=== PATIENT | male | born 1955 | race Caucasian/White ===

== ENCOUNTER 2016-12-07 13:01 | Inpatient (IN) ==
--- NOTE | 2016-12-07 13:23 | Emergency Department Note ---
Arrival - Arrival Chief Complaint: Upper Respiratory ED Nursing Triage Note: Brought in by EMS c/o coughing up blood-onset earlier this morning. Reports that he just finished a round of chemo. Was instructed by cancer clinic to come to ED since he was coughing large clots. Mode of Arrival: Stretcher Limitations: No Limitations Source: Patient, Old Records Reviewed, RN Notes Reviewed Time Seen by Provider: 12/07/16 13:15 - History of Present Illness HPI Narrative: Patient is a 61-year-old white male with a history of small cell carcinoma the lung. Patient began coughing up blood today. He has had hemoptysis in the past. Patient is coughed up a teaspoonful at a time on multiple occasions this morning. There is no history of chills or fever. Patient denies shortness of breath. He is currently being treated by Dr. Garnett. He completed his last chemotherapy yesterday. Onset (ago): hour(s) (5-6) Allergies/Adverse Reactions: Allergies Allergy/AdvReac Type Severity Reaction Status Date / Time influenza virus vaccine, Allergy Severe ANAPHYLAXIS Verified 11/09/16 06:57 specific Home Medications: Home Medications Medication Instructions Recorded Confirmed Type Albuterol Sulfate [Proair HFA] 2 puff INH Q4H PRN 11/08/16 11/08/16 History Aspirin EC Tab 81 mg PO DAILY 11/08/16 11/09/16 History Atorvastatin [Lipitor] 20 mg PO DAILY 11/08/16 11/08/16 History Benazepril [Lotensin] 40 mg PO DAILY 11/08/16 11/09/16 History Cyclobenzaprine [Flexeril] 10 mg PO TID PRN 11/08/16 11/08/16 History Fluticasone Propionate 2 spray BOTH NARES DAILY 11/08/16 11/08/16 History [Fluticasone 50 mcg Nasal [place]] [place] 3 Acid Ethyl Esters [Lovaza] 2 gm PO BID 11/08/16 11/08/16 History Potassium Gluconate 90 mg PO BID 11/08/16 11/08/16 History Tramadol HCl [Tramadol Tab] 50 mg PO Q6H PRN 11/08/16 11/08/16 History amLODIPine [Norvasc] 10 mg PO DAILY 11/08/16 11/09/16 History hydroCHLOROthiazide 25 mg PO DAILY 11/08/16 11/08/16 History [Hydrochlorothiazide] Diltiazem Cd Cap [Cardizem CD] 120 mg PO DAILY 11/09/16 11/09/16 History Review of System - Review of System 12 point system: reviewed and no additional remarkable complaints except as stated - Review of System Constitutional: Absent: chills, fever Respiratory: Present: cough, other (Hemoptysis). Absent: respiratory distress, wheezing Cardiovascular: Absent: chest pain, palpitations, dyspnea on exertion, orthopnea , edema Gastrointestinal: Absent: abdominal pain, nausea, vomiting Medical,Surgical,& Family Hx - Medical History Cardio: History of: Cardiac Dysrhythmia, Hypertension Neurology: History of: TIA No history of: Seizures HEENT: Comment Only: Dental Problems (SOME TEETH BROKE OFF) Endocrine: No history of: Thyroid Disorder Comment Only: Diabetes Mellitus (NIDDM) (BORDERLINE) Respiratory: History of: Bronchitis, Pneumonia, Lung Cancer Gastrointestinal: History of: GERD, GI Problems (STOMACH ULCERS) No history of: Hepatitis, Liver Problems Musculoskeletal: History of: Musculoskeletal Problems (BOTH ANKLES BROKEN, WITH PINS/FIXATOR) Other: No history of: Anesthesia Reactions (HARD TO BUT TO SLEEP/ HIGH TOLERANCE FOR PAIN) - Surgical History Cardiac Surgeries: Patient Denies: Cardiac Catheterization Reproductive Surgeries: Comment Only: Prostate Surgery (SLOW MOVING CA OVER 20 YRS IN PROSTATE ACCORDING TO , DOES NOT SEE MD) - Social History Smoking Status: Former smoker Frequency of Alcohol Use: None Type of Drug Use: None Functional capacity: independent ambulation Exam Vital Signs: Vital Signs Temperature 98.9 F 12/07/16 13:07 Pulse Rate 106 H 12/07/16 14:30 Respiratory Rate 20 12/07/16 14:30 Blood Pressure 115/71 12/07/16 14:30 O2 Sat by Pulse Oximetry 97 12/07/16 14:30 GENERAL: This is a well-nourished well-developed chronically ill-appearing white male in no apparent distress. VITAL SIGNS: Reviewed HEENT: Head is atraumatic and normocephalic. Pupils are equal round react to light. Extraocular movements are intact. Oropharynx is benign with moist mucous membranes. NECK: Neck is soft and supple without tenderness. There are no masses. There is no lymphadenopathy. LUNGS: Decreased breath sounds in all lung mullins. Chest rises symmetrically. There is no chest wall tenderness. CV: Heart is regular rate and rhythm without murmurs rubs or gallops. ABDOMEN: Abdomen is soft, nontender to palpation. There are no abdominal abnormal masses palpated. There is no organomegaly. Bowel sounds are present and active. SKIN: Skin is warm and dry. No rash. EXTREMITIES: Patient has full range of motion without tenderness. There is no pedal edema. NEUROLOGIC: Awake alert and oriented 4. Cranial nerves II through XII are grossly intact. Motor is 5 over 5 in all extremities bilaterally. Course - Consultations Consultation #1: Discussed with Dr. Garnett. Patient will be admitted to his service. Initial orders written for him. The patient's care will be assumed by him upon arrival to the floor peer Time: 15:18 Results - Labs CBC & BMP: 12/07/16 13:21 12/07/16 13:21 Lab Results: I have reviewed the patients labs Labs: Laboratory Tests 12/07/16 13:21 INR 1.0 - Diagnostic Findings Procedure: Chest x-ray: image reviewed by me (Increased pulmonary markings on the left.) Disposition Clinical Impression: Small cell carcinoma of lung, Hemoptysis, Postobstructive pneumonia, Anemia Case discussed with: patient, patient's physician Disposition: Still a Patient Condition: Stable Time of Disposition: 15:18
[2016-12-07 13:31] LABS: Basophils % 0.1 % (0.0-0.8); Eosinophils % 0.3 % (0.00-10.9); Hemoglobin 8.5 GM/DL (14.0-18.0); Immature Granulocytes % 3.1 %; Immature Granulocytes Absolute 0.42 #; Lymphocytes # 0.6 10*3/uL (1.4-4.0); Lymphocytes % 4.5 % (21.2-54.2); Mean Corpuscular HGB Conc 32.7 GM/DL (32-36); Mean Corpuscular Hemoglobin 29 PG (27-34); Mean Corpuscular Volume 87.5 FL (87-102); Mean Platelet Volume 8.9 FL (9.6-12.0); Monocytes # 0.2 10*3/uL (0.11-0.8); Monocytes % 1.7 % (1.7-12.7); Neutrophils # 12.2 10*3/uL (1.4-7.4); Neutrophils % 90.3 % (38.7-73.9); Platelet Count 522 T/CUMM (130-400); Red Blood Count 2.97 MC/CUMM (3.8-5.5); White Blood Count 13.5 T/CUMM (4-12)
[2016-12-07 13:53] LABS: Albumin 2.4 G/DL (3.4-5.0); Bilirubin,Total 0.4 MG/DL (0.2-1.0); Calcium 8.7 MG/DL (8.5-10.1); Osmolality,Calculated 265.7 MOS/KG (273-304); Potassium 4.5 MMOL/L (3.5-5.1); Total Protein 6.5 G/DL (6.4-8.3)
[2016-12-07 13:55] LABS: PT Patient Result 10.4 SECS; Partial Thromboplastin Time 30.8 SECS (0-40)
--- NOTE | 2016-12-07 14:03 | XRay Report ---
XR chest 2V Indication: Hemoptysis Comparison: 09 November 2016 Findings: The heart and mediastinum are normal in size and configuration. The pulmonary vascularity is normal in caliber. There is increased left lower lung density when compared to previous study. No other lung infiltrates, effusions, pneumothorax or other abnormality is demonstrated. Impression: Increased left lower lung density, could indicate worsening infiltrate or atelectasis. PROCEDURE INTERPRETED AT [facility] DEPARTMENT OF RADIOLOGY Final Report Signed by: Dr. Te Castillo
[2016-12-07] MEDS ORDERED: PANTOPRAZOLE 40 MG VIAL IV STA (15:14)
[2016-12-07] MEDS ORDERED: PANTOPRAZOLE 40 MG VIAL IV ONE (16:07)
[2016-12-07] MEDS ORDERED: ALUMINUM/MAGNES/SIMETH MAX STR 30 ML UDCUP PO PRN (16:55)
[2016-12-07] MEDS ORDERED: ALPRAZolam 0.25 MG TABLET PO PRN (16:55)
[2016-12-07] MEDS ORDERED: MYLANTA/LIDO VISC 2:1 300 ML BOTTLE SWISH/SWAL PRN (16:55)
[2016-12-07] MEDS ORDERED: LOPERAMIDE 2 MG CAPSULE PO PRN ×2 (16:55)
[2016-12-07] MEDS ORDERED: traMADol 50 MG TABLET PO PRN (16:55)
[2016-12-07] MEDS ORDERED: PROMETHAZINE INJ 25 MG in SODIUM CHLORIDE 0.9% 50 ML IV PRN (16:55)
[2016-12-07] MEDS ORDERED: chlorproMAZINE INJ 50 MG in SODIUM CHLORIDE 0.9% 100 ML IV PRN (16:55)
[2016-12-07] MEDS ORDERED: diphenhydrAMINE CAP 25 MG CAPSULE PO PRN (16:55)
[2016-12-07] MEDS ORDERED: BENZTROPINE 2 MG/2 ML AMP IV PRN (16:55)
[2016-12-07] MEDS ORDERED: ACETAMINOPHEN 325 MG TABLET PO PRN (16:55)
[2016-12-07] MEDS ORDERED: MAGNESIUM HYDROXIDE SUSP 30 ML UDCUP PO PRN (16:55)
[2016-12-07] MEDS ORDERED: chlorproMAZINE INJ 25 MG in SODIUM CHLORIDE 0.9% 100 ML IV PRN (16:55)
[2016-12-07] MEDS ORDERED: chlorproMAZINE 25 MG TABLET PO PRN (16:55)
[2016-12-07] MEDS ORDERED: LACTULOSE 20 GM/30 ML UDCUP PO PRN (16:55)
[2016-12-07] MEDS ORDERED: MYLANTA/LIDO VISC 2:1 300 ML BOTTLE SWISH/SPIT PRN (16:55)
[2016-12-07] MEDS ORDERED: ONDANSETRON 4 MG/2 ML VIAL IV PRN (16:55)
[2016-12-07] MEDS ORDERED: SODIUM CHLORIDE 0.9% 250 ML IV PRN (16:55)
[2016-12-07] MEDS: SODIUM CHLORIDE 0.9% 1,000 ML IV SCH (17:25)
[2016-12-08] MEDS: SODIUM CHLORIDE 0.9% 1,000 ML IV SCH ×2 (08:13→19:35)
[2016-12-08 08:19] LABS: Basophils # 0.1 10*3/uL (0.0-0.2); Basophils % 0.3 % (0.0-0.8); Eosinophils # 0.1 10*3/uL (0.0-0.87); Eosinophils % 0.6 % (0.00-10.9); Hematocrit 31.5 VOL% (42.0-52.0); Immature Granulocytes % 3.7 %; Immature Granulocytes Absolute 0.75 #; Lymphocytes # 0.6 10*3/uL (1.4-4.0); Mean Corpuscular HGB Conc 34.3 GM/DL (32-36); Mean Corpuscular Hemoglobin 29 PG (27-34); Mean Corpuscular Volume 85.4 FL (87-102); Mean Platelet Volume 8.9 FL (9.6-12.0); Monocytes # 0.1 10*3/uL (0.11-0.8); Monocytes % 0.6 % (1.7-12.7); Neutrophils # 18.4 10*3/uL (1.4-7.4); Neutrophils % 91.8 % (38.7-73.9); Platelet Count 469 T/CUMM (130-400); Red Cell Distribution Width 15.5 % (9.3-17.3)
[2016-12-08 08:27] LABS: Hemoglobin 10.8 GM/DL (14.0-18.0); Red Blood Count 3.69 MC/CUMM (3.8-5.5)
--- NOTE | 2016-12-08 09:20 | Oncology History&Physical ---
Assessment and Plan (1) Small cell carcinoma of lung Status: Acute Assessment and plan: We will give the patient nebulized pulmonary medications and discussion for racemic epinephrine also. Antitussives are also ordered with daily lab monitoring. Current Visit: Yes History of Present Illness Chief complaint: Hemoptysis History of present illness: Mr. Barlow is a 61 year old male With recent diagnosis small cell lung cancer involving the left mid and lower lung. The patient received first course of chemotherapy earlier this week with carboplatinum and etoposide. I reviewed staging studies with him earlier this week in the office and he is felt to have widespread metastatic disease to the liver and bones. Moderate hemoptysis has been noted over the last 24 hours. The patient had a pre-existing anemia of unknown etiology and he was transfused 2 units of red blood cells overnight. This morning his O2 saturations are around 91% and he continues to cough. His coag parameters are within normal and we will ask pulmonary to see him. Home Medications Medication Instructions Recorded Confirmed Type Aspirin EC Tab 81 mg PO DAILY 11/08/16 12/08/16 History Atorvastatin [Lipitor] 20 mg PO QPM 11/08/16 12/08/16 History Benazepril [Lotensin] 40 mg PO DAILY 11/08/16 12/08/16 History [place] 3 Acid Ethyl Esters [Lovaza] 2 gm PO BID 11/08/16 12/08/16 History Potassium Gluconate 99 mg PO DAILY 11/08/16 12/08/16 History amLODIPine [Norvasc] 10 mg PO DAILY 11/08/16 12/08/16 History hydroCHLOROthiazide 25 mg PO DAILY 11/08/16 12/08/16 History [Hydrochlorothiazide] Albuterol Sulfate [Ventolin HFA] 2 puff INH TID 12/07/16 12/08/16 History Hydrocodone/Acetaminophen 1 each PO Q4-6H PRN 12/07/16 12/08/16 History [Hydrocodon-Acetaminophen 5-325] dilTIAZem HCl [Diltiazem ER (12 120 mg PO DAILY 12/07/16 12/08/16 History hr)] diphenhydrAMINE HCl 25 mg PO DAILY PRN 12/07/16 12/08/16 History [diphenhydrAMINE Tab] guaiFENesin TAB [Organidin Nr] 200 mg PO DAILY 12/07/16 12/08/16 History Allergies Allergy/AdvReac Type Severity Reaction Status Date / Time influenza virus vaccine, Allergy Severe ANAPHYLAXIS Verified 11/09/16 06:57 specific Medical,Surgical,& Family Hx - Medical History Cardio: History of: Cardiac Dysrhythmia, Hypertension Neurology: History of: TIA No history of: Seizures HEENT: Comment Only: Dental Problems (SOME TEETH BROKE OFF) Endocrine: No history of: Thyroid Disorder Comment Only: Diabetes Mellitus (NIDDM) (BORDERLINE) Respiratory: History of: Bronchitis, Pneumonia, Lung Cancer Gastrointestinal: History of: GERD, GI Problems (STOMACH ULCERS) No history of: Hepatitis, Liver Problems Musculoskeletal: History of: Musculoskeletal Problems (BOTH ANKLES BROKEN, WITH PINS/FIXATOR) Other: No history of: Anesthesia Reactions (HARD TO BUT TO SLEEP/ HIGH TOLERANCE FOR PAIN) - Surgical History Cardiac Surgeries: Patient Denies: Cardiac Catheterization Reproductive Surgeries: Comment Only: Prostate Surgery (SLOW MOVING CA OVER 20 YRS IN PROSTATE ACCORDING TO , DOES NOT SEE MD) - Social History Smoking Status: Former smoker Frequency of Alcohol Use: None Type of Drug Use: None - Constitutional Constitutional: Present: fatigue. Absent: fever(s) - EENT Eye: Absent: blurry vision Ears: Absent: decreased hearing Nose, mouth and throat: Absent: dizziness, dysphagia, epistaxis, neck pain, vertigo - Respiratory Respiratory: Present: dyspnea, hemoptysis, wheezing - Genitourinary Genitourinary ROS male: Absent: difficulty urinating - Psychiatric Psychiatric General: Absent: confusion - Hematologic/Lymphatic Hematologic/Lymphatic: Absent: easy bruising Exam - Constitutional Vitals: Period Temp Pulse Resp BP Sys/Carrero Pulse Ox Last 24 Hr 96.0 F-99.6 F 60-121 18-22 112-168/56-84 90-903 General appearance: mild distress, over weight - Head Head Exam: Present: normocephalic - Eye Eye Exam: Present: EOMI. Absent: conjunctival injection, periorbital swelling, scleral icterus Pupils: Present: PERRL - ENT ENT exam: Present: normal external ear exam - Neck Neck exam: Present: normal inspection. Absent: lymphadenopathy - Respiratory Respiratory exam: Present: wheezes. Absent: chest wall tenderness, decreased breath sounds - Cardiovascular Cardiovascular exam: Present: RRR. Absent: bradycardia - GI/Abdominal GI/Abdominal exam: Absent: distended, firm, guarding - Neurological Exam Neurological exam: Present: alert, oriented X3 - Skin Skin exam: Present: warm, diaphoretic. Absent: petechiae Results - Labs CBC & BMP: 12/08/16 08:13 12/07/16 13:21
[2016-12-08 09:21] LABS: Band Neutrophils 1 % (0-10); Hypochromasia 1+; Lymphocytes 4 % (20-55); Microcytosis Slight; Platelet Estimate Increased; Segmented Neutrophils 94 % (50-85); Total Cells Counted 100
[2016-12-08 09:22] LABS: Hypersegmented Neutrophil SLIGHT
[2016-12-08] MEDS ORDERED: diphenhydrAMINE CAP 25 MG CAPSULE PO PRN (09:22)
[2016-12-08] MEDS: DILTIAZEM CD 120 MG CAPSULE PO SCH (09:50)
[2016-12-08] MEDS ORDERED: RACEPINEPHRINE 0.5 ML NEB RESP TX PRN ×2 (10:13→10:30)
[2016-12-08] MEDS ORDERED: RACEPINEPHRINE 0.5 ML NEB RESP TX SCH ×2 (10:30→13:00)
[2016-12-08] MEDS: HYDROcodone/HOMATROPINE 5 ML UDCUP PO SCH ×3 (10:44→22:53)
--- NOTE | 2016-12-08 11:18 | Pulmonology Consult Note ---
History of Present Illness Chief complaint: Hemoptysis. Left lower lung small cell cancer. COPD. History of present illness: Mr. Barlow is a 61 year old white male whom I have been asked to see in pulmonary consultation for evaluation of hemoptysis. Patient was seen along with his , Marquise Hernandez nurse practitioner and Miley javier RN. This patient complains of coughing up blood. This is been dark red. He denies chest pain. On 11/09/2016 I evaluated him with fiberoptic bronchoscopy because of hemoptysis. He had a cancer that began in the superior segment of the left lower lung and produced near obstruction of the left lower lung distal to the orifice of the superior segment. There is per bronchoscopy specimens grew staph aureus methicillin. He also grew and aspergillosis species and a penicillium species. His biopsy showed small cell carcinoma and earlier this week the patient has received 3 courses of chemotherapy. He was treated with carboplatinum and etoposide. The patient had a pre-existing anemia he has required a blood transfusion. Patient's review of systems is otherwise negative. Allergies. See below Home medicines. See below Past history. Small cell carcinoma diagnosed 11/09/2016. This originated in superior segment of the left lower lung and partially occluded distal left lower lung. Past history of arthritis esophageal stricture gastroesophageal reflux disease hiatal hernia, high blood pressure and hyperlipidemia. Family history. Positive arthritis. Social history. Former smoker. Chest x-ray. Mild cardiomegaly. Right hilum is normal left hilum is enlarged masses seen directly behind the left hilum. There is atelectasis of the left lower lung with a small associated pleural effusion. No ites are seen on the left side. She reports from CT of the head, CT of the chest, CT of abdomen and pelvis White blood cell count is 20,000 with 92% segs. H&H posttransfusion is 10.8/ 31.5. Platelets of 469,000. INR is 1.0 and PTT is 30.4. Sodium is low at 131 potassium is normal. Creatinine 0.7 BUN is 13. Glucoses are within normal range. Total protein is 6.5, albumin is 2.4 and globulin is 4.1. Old records have been reviewed. Labs been reviewed. Medicines have been reviewed. Physical exam. Vital signs. See below General. Appears acutely ill and not willing to talk much. He is ill kept. Body hygiene appears to be poor Face. Symmetrical. No edema of the lips or tongue Neck symmetrical no meningeal adjustments Chest loose large airway congestion with decreased breath sounds at the left base Heart. Lateral PMI no gallop Abdomen. Nondistended. Nontender. Only a few bowel sounds Lower extremities. Slightly tender posterior calves. Neurologic. Cranial nerves are intact with decreased hearing acuity. Patient moves all 4 extremities. Sensory exam was not done and I did not test his gait. The remainder of the exam is negative. Impression. 1. Acute hemoptysis. Most likely from left lower lung with the patient previously had hemoptysis secondary to small cell carcinoma. Hopefully this is related to tumor necrosis. 2. With atelectasis of the left lower lung have to assume that the patient may be infected. His admit white count was 13,500 and is increased to 20,000 with a left shift. Since he grew methicillin-resistant staph aureus from his bronchoscopy about a month ago we will cover for that and will also cover for possibility of gram-negative. 3. 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 Post chemotherapy this week 4. Past history tobacco abuse 5. COPD 6. History of hiatal hernia and gastroesophageal reflux disease and esophageal stricture 7. hyperlipidemia 8. High blood pressure Plan. 1. Inhalation therapy every 6 hours and as needed with racemic epinephrine to decrease bleeding 2. Vancomycin. Daily BMP. Consult pharmacology for dosing 3. Fortaz 1 g every 8 hours 4. Sputum for Gram stain culture and sensitivity 5. Doppler venograms of the lower extremities 6. Dr. Jhonny Chen I have discussed the case and we have coordinated her care. 7. See Home Medications Medication Instructions Recorded Confirmed Type Aspirin EC Tab 81 mg PO DAILY 11/08/16 12/08/16 History Atorvastatin [Lipitor] 20 mg PO QPM 11/08/16 12/08/16 History Benazepril [Lotensin] 40 mg PO DAILY 11/08/16 12/08/16 History [place] 3 Acid Ethyl Esters [Lovaza] 2 gm PO BID 11/08/16 12/08/16 History Potassium Gluconate 99 mg PO DAILY 11/08/16 12/08/16 History amLODIPine [Norvasc] 10 mg PO DAILY 11/08/16 12/08/16 History hydroCHLOROthiazide 25 mg PO DAILY 11/08/16 12/08/16 History [Hydrochlorothiazide] Albuterol Sulfate [Ventolin HFA] 2 puff INH TID 12/07/16 12/08/16 History Hydrocodone/Acetaminophen 1 each PO Q4-6H PRN 12/07/16 12/08/16 History [Hydrocodon-Acetaminophen 5-325] dilTIAZem HCl [Diltiazem ER (12 120 mg PO DAILY 12/07/16 12/08/16 History hr)] diphenhydrAMINE HCl 25 mg PO DAILY PRN 12/07/16 12/08/16 History [diphenhydrAMINE Tab] guaiFENesin TAB [Organidin Nr] 200 mg PO DAILY 12/07/16 12/08/16 History Allergies Allergy/AdvReac Type Severity Reaction Status Date / Time influenza virus vaccine, Allergy Severe ANAPHYLAXIS Verified 11/09/16 06:57 specific Exam (Pulmonay) H&P - Constitutional Vitals: Period Temp Pulse Resp BP Sys/Carrero Pulse Ox Last 24 Hr 96.0 F-99.6 F 60-121 18-22 112-168/56-84 90-903 Medical,Surgical,& Family Hx - Medical History Cardio: History of: Cardiac Dysrhythmia, Hypertension Neurology: History of: TIA No history of: Seizures HEENT: Comment Only: Dental Problems (SOME TEETH BROKE OFF) Endocrine: No history of: Thyroid Disorder Comment Only: Diabetes Mellitus (NIDDM) (BORDERLINE) Respiratory: History of: Bronchitis, Pneumonia, Lung Cancer Gastrointestinal: History of: GERD, GI Problems (STOMACH ULCERS) No history of: Hepatitis, Liver Problems Musculoskeletal: History of: Musculoskeletal Problems (BOTH ANKLES BROKEN, WITH PINS/FIXATOR) Other: No history of: Anesthesia Reactions (HARD TO BUT TO SLEEP/ HIGH TOLERANCE FOR PAIN) - Surgical History Cardiac Surgeries: Patient Denies: Cardiac Catheterization Reproductive Surgeries: Comment Only: Prostate Surgery (SLOW MOVING CA OVER 20 YRS IN PROSTATE ACCORDING TO , DOES NOT SEE MD) - Social History Smoking Status: Former smoker Frequency of Alcohol Use: None Type of Drug Use: None Results - Labs CBC & BMP: 12/08/16 08:13 12/07/16 13:21
[2016-12-08] MEDS: RACEPINEPHRINE 0.5 ML NEB RESP TX SCH ×3 (11:27→21:00)
--- NOTE | 2016-12-08 12:16 | Ultrasound Report ---
History: Bilateral calf tenderness. Shortness of breath Date: 12/08/2016 Study: Bilateral lower extremity color-flow venous Doppler study Comparison exam: No previous Color Doppler, wave form analysis, and compression analysis of the deep veins of both lower extremities from the common femoral vein level through the popliteal vein level shows that the veins are readily compressible. There is no abnormal intraluminal material to suggest thrombus. Waveform analysis is unremarkable. Ultrasound images were captured and archived Impression: Normal bilateral lower extremity color flow venous Doppler study. No evidence of acute DVT PROCEDURE INTERPRETED AT [facility] DEPARTMENT OF RADIOLOGY Final Report Signed by: Dr. Sherin Reynoso
[2016-12-08] MEDS: VANCOMYCIN INJ 1,500 MG in SODIUM CHLORIDE 0.9% 500 ML IV SCH (12:30)
[2016-12-08] MEDS: COLLAGENASE OINT 30 GM TUBE TOP SCH (15:15)
[2016-12-09] MEDS: VANCOMYCIN INJ 1,500 MG in SODIUM CHLORIDE 0.9% 500 ML IV SCH ×3 (00:26→23:39)
[2016-12-09] MEDS: guaiFENesin 200 MG/10 ML UDCUP PO PRN ×2 (00:29→20:01)
[2016-12-09 03:29] LABS: Basophils # 0.1 10*3/uL (0.0-0.2); Basophils % 0.5 % (0.0-0.8); Eosinophils # 0.1 10*3/uL (0.0-0.87); Eosinophils % 0.6 % (0.00-10.9); Hematocrit 29.6 VOL% (42.0-52.0); Immature Granulocytes % 9.2 %; Immature Granulocytes Absolute 2.06 #; Lymphocytes # 0.7 10*3/uL (1.4-4.0); Lymphocytes % 2.9 % (21.2-54.2); Mean Corpuscular HGB Conc 33.8 GM/DL (32-36); Mean Corpuscular Hemoglobin 29 PG (27-34); Mean Corpuscular Volume 84.8 FL (87-102); Mean Platelet Volume 9.1 FL (9.6-12.0); Monocytes # 0.1 10*3/uL (0.11-0.8); Monocytes % 0.2 % (1.7-12.7); Neutrophils # 19.3 10*3/uL (1.4-7.4); Neutrophils % 86.6 % (38.7-73.9); Platelet Count 421 T/CUMM (130-400); Red Blood Count 3.49 MC/CUMM (3.8-5.5); Red Cell Distribution Width 15.2 % (9.3-17.3); White Blood Count 22.3 T/CUMM (4-12)
[2016-12-09 03:47] LABS: Calcium 8.5 MG/DL (8.5-10.1); Magnesium 2.2 MG/DL (1.8-2.4); Osmolality,Calculated 259.9 MOS/KG (273-304); Potassium 4.3 MMOL/L (3.5-5.1)
[2016-12-09] MEDS: HYDROcodone/HOMATROPINE 5 ML UDCUP PO SCH ×4 (04:00→21:57)
[2016-12-09 05:04] LABS: Band Neutrophils 2 % (0-10); Hypochromasia 2+; Lymphocytes 3 % (20-55); Platelet Estimate Increased; Segmented Neutrophils 94 % (50-85); Total Cells Counted 100
[2016-12-09] MEDS: RACEPINEPHRINE 0.5 ML NEB RESP TX SCH ×4 (08:00→20:10)
[2016-12-09] MEDS: amLODIPine 10 MG TABLET PO SCH (09:10)
[2016-12-09] MEDS: DILTIAZEM CD 120 MG CAPSULE PO SCH (09:10)
[2016-12-09] MEDS: COLLAGENASE OINT 30 GM TUBE TOP SCH (09:11)
[2016-12-09] MEDS: SODIUM CHLORIDE 0.9% 1,000 ML IV SCH (09:11)
--- NOTE | 2016-12-09 09:37 | Pulmonology Progress Note ---
Pulmonary - PN: Subj Interval history: This 61-year-old man has oat cell lung cancer left lower lobe. He came in with hemoptysis. It is felt to be due to tumor necrosis. Still coughing up some blood but not a lot. Getting racemic epinephrine treatments. He is growing a gram negative miguelina from his sputum. Should be covered with current antibiotics pending sensitivities. Exam (Progress Note) - Constitutional Vitals: Period Temp Pulse Resp BP Sys/Carrero Pulse Ox Last 24 Hr 97.2 F-97.9 F 104-123 18-22 140-169/79-89 89-97 Exam: Patient's alert oriented vital signs normal. Pupils react to light. Throat is clear. Neck supple bruits. Chest reveals some rhonchi at the left base. Heart normal rate rhythm no murmurs. Abdomen soft no masses. Extremities no clubbing cyanosis edema. Calves nontender Results - Labs CBC & BMP: 12/09/16 02:19 12/09/16 02:19 Lab Results: I have reviewed the past 24 hour labs - Diagnostic Findings Procedure: Chest x-ray: image reviewed by me (Left lower lobe infiltrate) Assessment and Plan (1) Small cell carcinoma of lung Status: Acute Assessment and plan: Appears to have responded to chemotherapy. There may be some tumor necrosis leading to hemoptysis. Current Visit: Yes (2) Hemoptysis Status: Acute Assessment and plan: This is a relatively small amount but has been persistent. Continuing with racemic epinephrine, treatment of pneumonia. Current Visit: Yes (3) Postobstructive pneumonia Status: Acute Assessment and plan: Growing gram-negative rods. [place] hopefully will cover that. We do not have the final sensitivity. Current Visit: Yes
[2016-12-09] MEDS ORDERED: LOPERAMIDE 2 MG CAPSULE PO PRN (11:07)
[2016-12-09] MEDS: FLUTICASONE 50 MCG NASAL SPRAY 16 GM BOTTLE BOTH NARES SCH (11:32)
--- NOTE | 2016-12-09 16:59 | Oncology Progress Note ---
Assessment and Plan (1) Hemoptysis Status: Acute Assessment and plan: Persists, though patient and family at bedside feel it is somewhat improved. -- continue scheduled racemic epinephrine. 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 Asymptomatic from a Na standpoint. 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 Will follow up with Dr. Garnett Current Visit: Yes (6) Leukocytosis Status: Acute Assessment and plan: Likely combination of Neulasta and post-obstructive pneumonia. Continue antibiotics and observe. Current Visit: Yes Oncology Subjective PN Interval history: 61 yo with recently diagnosed Small Cell Carcinoma of the lung, s/p first cycle of Carbo/VP16, admitted now with hemoptysis. Interval History: - continues to have hemoptysis, though less frequently and seemingly less in volume - denies chest pain, dyspnea, abdominal pain. Is having frequent diarrhea and reports that he has had chronic diarrhea for a long time and takes PRN anti- diarrheals at home all the time - denies headaches, visual changes, focal weakness - appetite is ok. Moving around in his room without difficulty Exam - Constitutional Vitals: Period Temp Pulse Resp BP Sys/Carrero Pulse Ox Last 24 Hr 96.6 F-97.9 F 91-116 18-20 139-159/73-89 88-97 Exam: Morbidly obese and chronically ill appearing white male, sitting up in bed; has frequent coughing spells with hemoptysis during examination - Eye Eye Exam: Absent: scleral icterus (pink palpebral conjunctivae) - Respiratory Respiratory exam: Present: other (frequent cough productive of blood. Course rhonchi in all mullins. Slightly tachypneic on 2L NC) - Cardiovascular Cardiovascular exam: Present: tachycardia. Absent: JVD - GI/Abdominal GI/Abdominal exam: Present: soft. Absent: tenderness - Extremities Exam Extremities exam: Absent: calf tenderness, edema - Neurological Exam Neurological exam: Present: other (no focal deficit) - Skin Skin exam: Present: warm, dry Results - Labs CBC & BMP: 12/09/16 02:19 12/09/16 02:19
[2016-12-10] MEDS ORDERED: VANCOMYCIN INJ 1,500 MG in SODIUM CHLORIDE 0.9% 500 ML IV SCH
[2016-12-10] MEDS: TEMAZEPAM 7.5 MG CAPSULE PO PRN ×2 (01:51→22:24)
[2016-12-10] MEDS: guaiFENesin 200 MG/10 ML UDCUP PO PRN (01:51)
[2016-12-10] MEDS: HYDROcodone/HOMATROPINE 5 ML UDCUP PO SCH ×4 (04:32→22:23)
[2016-12-10 06:45] LABS: Basophils # 0.1 10*3/uL (0.0-0.2); Basophils % 0.6 % (0.0-0.8); Eosinophils # 0.2 10*3/uL (0.0-0.87); Eosinophils % 1.3 % (0.00-10.9); Hematocrit 29.8 VOL% (42.0-52.0); Hemoglobin 9.9 GM/DL (14.0-18.0); Immature Granulocytes % 7.9 %; Immature Granulocytes Absolute 1.22 #; Lymphocytes # 0.5 10*3/uL (1.4-4.0); Lymphocytes % 3.4 % (21.2-54.2); Mean Corpuscular HGB Conc 33.2 GM/DL (32-36); Mean Corpuscular Hemoglobin 29 PG (27-34); Mean Corpuscular Volume 86.1 FL (87-102); Monocytes # 0.2 10*3/uL (0.11-0.8); Neutrophils # 13.3 10*3/uL (1.4-7.4); Neutrophils % 85.8 % (38.7-73.9); Platelet Count 359 T/CUMM (130-400); Red Blood Count 3.46 MC/CUMM (3.8-5.5); Red Cell Distribution Width 14.8 % (9.3-17.3); White Blood Count 15.5 T/CUMM (4-12)
[2016-12-10 06:49] LABS: PT Patient Result 10.7 SECS; Partial Thromboplastin Time 34.4 SECS (0-40)
[2016-12-10 07:00] LABS: Calcium 8.6 MG/DL (8.5-10.1); Magnesium 2.2 MG/DL (1.8-2.4); Osmolality,Calculated 264.5 MOS/KG (273-304); Potassium 3.9 MMOL/L (3.5-5.1)
[2016-12-10 07:04] LABS: Calcium 8.9 MG/DL (8.5-10.1); Osmolality,Calculated 264.5 MOS/KG (273-304); Potassium 3.9 MMOL/L (3.5-5.1)
[2016-12-10 07:28] LABS: Band Neutrophils 1 % (0-10); Eosinophils 3 % (0-10); Giant Platelets Few; Lymphocytes 2 % (20-55); Platelet Estimate Adequate; Segmented Neutrophils 94 % (50-85); Total Cells Counted 100
[2016-12-10 07:29] LABS: Hypochromasia 1+; Microcytosis Slight; Ovalocytes Slight
[2016-12-10] MEDS: RACEPINEPHRINE 0.5 ML NEB RESP TX SCH ×4 (07:43→19:14)
--- NOTE | 2016-12-10 09:31 | Pulmonology Progress Note ---
Pulmonary - PN: Subj Interval history: This 61-year-old man has oat cell lung cancer left lower lobe. He came in with hemoptysis. It is felt to be due to tumor necrosis. Still coughing up some blood but not a lot. Getting racemic epinephrine treatments. He is growing a gram negative miguelina from his sputum. Should be covered with current antibiotics pending sensitivities. 12/10/2016 patient has some hyponatremia that does appear to be SIADH. This is being addressed by oncology. Still coughing up a small amount of bloody phlegm. Still having some bronchospasm. Will adjust medicines for bronchospasm. Exam (Progress Note) - Constitutional Vitals: Period Temp Pulse Resp BP Sys/Carrero Pulse Ox Last 24 Hr 96.8 F-98.5 F 91-112 18-20 139-180/73-85 90-97 Exam: Patient's alert oriented vital signs normal. Pupils react to light. Throat is clear. Neck supple bruits. Chest reveals some rhonchi at the left base. Also has some wheezes on the right side. Heart normal rate rhythm no murmurs. Abdomen soft no masses. Extremities no clubbing cyanosis edema. Calves nontender Results - Labs CBC & BMP: 12/10/16 04:10 12/10/16 04:10 Lab Results: I have reviewed the past 24 hour labs Assessment and Plan (1) Small cell carcinoma of lung Status: Acute Assessment and plan: Appears to have responded to chemotherapy. There may be some tumor necrosis leading to hemoptysis. 12/10/2016 a left lower lobe lung mass. Probably coughing up blood due to tumor necrosis. Current Visit: Yes (2) Hemoptysis Status: Acute Assessment and plan: This is a relatively small amount but has been persistent. Continuing with racemic epinephrine, treatment of pneumonia. 12/10/2016 only a small amount of hemoptysis. Current Visit: Yes (3) Postobstructive pneumonia Status: Acute Assessment and plan: Growing gram-negative rods. [place] hopefully will cover that. We do not have the final sensitivity. 12/10/2016 continuing antibiotics. Final culture report not out yet. Current Visit: Yes
[2016-12-10] MEDS: DILTIAZEM CD 120 MG CAPSULE PO SCH (09:46)
[2016-12-10] MEDS: COLLAGENASE OINT 30 GM TUBE TOP SCH (09:46)
[2016-12-10] MEDS: methylPREDNISolone SOD SUC 40 MG/1 ML VIAL IV SCH ×2 (09:46→18:14)
[2016-12-10] MEDS: amLODIPine 10 MG TABLET PO SCH (09:46)
[2016-12-10] MEDS: FLUTICASONE 50 MCG NASAL SPRAY 16 GM BOTTLE BOTH NARES SCH (09:46)
--- NOTE | 2016-12-10 11:43 | Oncology Progress Note ---
Assessment and Plan (1) Hemoptysis Status: Acute Assessment and plan: Persists, though continues to improve. -- continue scheduled racemic epinephrine. -- repeat counts in am Current Visit: Yes (2) Postobstructive pneumonia Status: Acute Assessment and plan: Klebsiella oxytoca in sputum culture. Nearly gonzalez-susceptible. 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 Abx changed to D5W. Improved from yesterday Current Visit: Yes (4) SIADH (syndrome of inappropriate ADH production) Status: Acute Assessment and plan: as above Current Visit: Yes (5) Small cell carcinoma of lung Status: Acute Assessment and plan: s/p first cycle Carbo/VP16 with Neulasta support. Will follow up with Dr. Garnett Current Visit: Yes (6) Leukocytosis Status: Acute Assessment and plan: Likely combination of Neulasta and post-obstructive pneumonia. Improving. Continue Abx Current Visit: Yes Oncology Subjective PN Interval history: States the hemoptysis is improving. Less in amount than yesterday, though not resolved. - diarrhe a little improved after anti-diarrheal medication - denies chest pain, dyspnea, abdominal pain Exam - Constitutional Vitals: Period Temp Pulse Resp BP Sys/Carrero Pulse Ox Last 24 Hr 96.8 F-98.5 F 91-112 18-20 139-180/73-85 90-97 Exam: Morbidly obese and chronically ill appearing white male, sitting up at side of bed; appears comfortable. Coughing less than yesterday - Eye Eye Exam: Present: other (anicteric sclera, pink palpebral conjunctiva) - ENT ENT exam: Present: other (poor dentition. Large tongue. Blood noted on tongue) - Respiratory Respiratory exam: Present: other (normal rate and effort on RA without conversational dyspnea or overt wheezing. Course rhonchi b/l bases) - Cardiovascular Cardiovascular exam: Present: RRR. Absent: JVD - GI/Abdominal GI/Abdominal exam: Present: soft. Absent: tenderness - Extremities Exam Extremities exam: Absent: calf tenderness, edema - Back Exam Back exam general: Present: other (subcutaneous mass noted to the right-mid back just below the scapula) - Neurological Exam Neurological exam: Present: alert. Absent: CN II-XII intact - Psychiatric Psychiatric exam: Present: normal affect, agitated (agitated at the water restriction for SIADH) - Skin Skin exam: Present: warm, dry Results - Labs CBC & BMP: 12/10/16 04:10 12/10/16 04:10
[2016-12-10] MEDS: VANCOMYCIN INJ 1,500 MG in SODIUM CHLORIDE 0.9% 500 ML IV SCH (12:08)
[2016-12-10] MEDS: CEFTAZIDIME IV SCH (20:42)
[2016-12-10] MEDS: DEXTROSE 5% IV SCH ×2 (20:42→20:43)
[2016-12-10] MEDS: VANCOMYCIN IV SCH (20:43)
[2016-12-11] MEDS ORDERED: VANCOMYCIN IV SCH
[2016-12-11] MEDS ORDERED: DEXTROSE 5% IV SCH
[2016-12-11] MEDS: DEXTROSE 5% IV SCH ×4 (03:19→19:32)
[2016-12-11] MEDS: CEFTAZIDIME IV SCH ×3 (03:19→19:32)
[2016-12-11] MEDS: VANCOMYCIN IV SCH (03:24)
[2016-12-11] MEDS: methylPREDNISolone SOD SUC 40 MG/1 ML VIAL IV SCH ×3 (03:24→18:53)
[2016-12-11 04:53] LABS: Basophils # 0.1 10*3/uL (0.0-0.2); Basophils % 0.5 % (0.0-0.8); Hematocrit 28.9 VOL% (42.0-52.0); Hemoglobin 9.8 GM/DL (14.0-18.0); Immature Granulocytes % 1.9 %; Immature Granulocytes Absolute 0.21 #; Lymphocytes # 0.4 10*3/uL (1.4-4.0); Lymphocytes % 3.2 % (21.2-54.2); Mean Corpuscular HGB Conc 33.9 GM/DL (32-36); Mean Corpuscular Hemoglobin 29 PG (27-34); Mean Corpuscular Volume 85.3 FL (87-102); Mean Platelet Volume 9.2 FL (9.6-12.0); Monocytes # 0.2 10*3/uL (0.11-0.8); Monocytes % 1.5 % (1.7-12.7); Neutrophils # 10.3 10*3/uL (1.4-7.4); Neutrophils % 92.9 % (38.7-73.9); Platelet Count 348 T/CUMM (130-400); Red Blood Count 3.39 MC/CUMM (3.8-5.5); Red Cell Distribution Width 14.3 % (9.3-17.3); White Blood Count 11.1 T/CUMM (4-12)
[2016-12-11 05:32] LABS: Calcium 9.3 MG/DL (8.5-10.1); Magnesium 2.6 MG/DL (1.8-2.4); Osmolality,Calculated 275.1 MOS/KG (273-304); Potassium 4.2 MMOL/L (3.5-5.1)
[2016-12-11 05:55] LABS: Band Neutrophils 2 % (0-10); Lymphocytes 3 % (20-55); Platelet Estimate Normal; Segmented Neutrophils 94 % (50-85); Total Cells Counted 100
[2016-12-11] MEDS: HYDROcodone/HOMATROPINE 5 ML UDCUP PO SCH ×4 (06:34→22:15)
[2016-12-11] MEDS: RACEPINEPHRINE 0.5 ML NEB RESP TX SCH ×4 (07:20→19:03)
--- NOTE | 2016-12-11 08:13 | XRay Report ---
XR chest 2V Indication: Hemoptysis. Chest 2 views: Comparison 12/07/2016. The left lung base is better aerated than previous although the majority of the superior segment left lower lobe and posterior basal segment left lower lobe remain opacified. Right lung remains essentially clear. Heart size is normal. No cavitation identified. Impression: Improved aeration left lung base with persistent alveolar hemorrhage, mass or pneumonia involving the superior segment and posterior basal segment left lower lobe. PROCEDURE INTERPRETED AT [facility] DEPARTMENT OF RADIOLOGY Final Report Signed by: Jhonny Chamorro M.D.
--- NOTE | 2016-12-11 08:39 | Oncology Progress Note ---
Assessment and Plan (1) Small cell carcinoma of lung Status: Acute Assessment and plan: We will give the patient nebulized pulmonary medications and discussion for racemic epinephrine also. Antitussives are also ordered with daily lab monitoring. Current Visit: Yes Oncology Subjective PN Interval history: Events over the weekend are noted. The patient remains stable and is on room air at this time. He is sitting upright at the bedside. His is present. Breath sounds are coarse bilaterally without wheezes at this time. No peripheral edema is noted abdomen is obese but nontender. No neurologic deficits are noted. Labs are reviewed with an acceptable white blood cell count and hemoglobin today. His hyponatremia felt related to small cell lung cancer is improved. Continuing on antibiotics with plans to discontinue vancomycin today and continue Fortaz. Sputum culture results notable for Klebsiella. No worsening of hemoptysis and will proceed with discharge discussions over the next 24-48 hours Exam - Constitutional Vitals: Period Temp Pulse Resp BP Sys/Carrero Pulse Ox Last 24 Hr 96.5 F-99.4 F 78-114 16-20 138-151/67-89 89-100 Results - Labs CBC & BMP: 12/11/16 04:24 12/11/16 04:24
[2016-12-11] MEDS: DILTIAZEM CD 120 MG CAPSULE PO SCH (08:49)
[2016-12-11] MEDS: COLLAGENASE OINT 30 GM TUBE TOP SCH (08:50)
[2016-12-11] MEDS: amLODIPine 10 MG TABLET PO SCH (08:50)
[2016-12-11] MEDS: FLUTICASONE 50 MCG NASAL SPRAY 16 GM BOTTLE BOTH NARES SCH (08:50)
--- NOTE | 2016-12-11 10:17 | Pulmonology Progress Note ---
Pulmonary - PN: Subj Interval history: Marquise Hernandez, [facility], acting as scribe for Dr. Cordell Almeida Mr. Barlow is a 61-year-old white male who we saw in initial pulmonary consultation on 12/08/2016. At that time, our impressions were: 1. Acute hemoptysis. Most likely from the left lower lung in this patient who previously had hemoptysis secondary to small cell carcinoma. Hopefully this is related to tumor necrosis. 2. With atelectasis of the left lower lung we have to assume that the patient may be infected. His admit white count was 13,500 and has increased to 20,000 with a left shift. Since he grew methicillin-resistant staph aureus from his bronchoscopy about a month ago we will cover for that and will also cover for the possibility of gram-negative. 3. 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 Post chemotherapy this week 4. Past history tobacco abuse 5. COPD 6. History of hiatal hernia and gastroesophageal reflux disease and esophageal stricture 7. Hyperlipidemia 8. High blood pressure 12/11/2016. The patient was seen today along with his . The patient's hemoptysis has decreased secondary to racemic epinephrine. Sputum Gram stain showed few gram-negative rods, few gram-positive cocci in clusters, and few gram -positive rods. Sputum culture has grown Klebsiella oxytoca. He was previously on vancomycin and Fortaz. Vancomycin was discontinued over the weekend. The Fortaz was continued. We will add Levaquin for double antibiotic coverage. Obviously, the patient feels better today than he did on Sunday when we initially saw him. Chest x-ray today shows a left perihilar infiltrate. This is become more evident over time. It was, however, present at admission. The Klebsiella is the cause of his infiltrate. Medications have been reviewed. Levaquin was added today. Labs been reviewed. White count has fallen to 11,100 with 92.9% segs; H&H 9.8/ 28.9; platelet count 348,000; creatinine 0.60, BUN 14, sodium 135, potassium 4.2 , magnesium 2.6 Exam (Progress Note) - Constitutional Vitals: Period Temp Pulse Resp BP Sys/Carrero Pulse Ox Last 24 Hr 96.5 F-99.4 F 78-114 16-20 123-151/67-89 89-100 Exam: Chest with minimal wheeze; loose large airway congestion Heart no gallop Abdomen is nontender and nondistended; bowel sounds positive 4 Extremities with nothing to suggest acute deep venous thrombophlebitis Psychiatric oriented 3 Neurologic long-term motor function is intact Plan: Start Levaquin 500 mg IV daily. Continue other treatment. See orders. Results - Labs CBC & BMP: 12/11/16 04:24 12/11/16 04:24
[2016-12-11] MEDS: LEVOFLOXACIN INJ 500 MG in PREMIX 1 EACH IV SCH (10:47)
[2016-12-11] MEDS: TEMAZEPAM 7.5 MG CAPSULE PO PRN (22:17)
[2016-12-12] MEDS: methylPREDNISolone SOD SUC 40 MG/1 ML VIAL IV SCH ×3 (01:37→17:13)
[2016-12-12] MEDS: HYDROcodone/HOMATROPINE 5 ML UDCUP PO SCH ×4 (04:00→22:25)
[2016-12-12] MEDS: DEXTROSE 5% IV SCH ×3 (04:01→20:00)
[2016-12-12] MEDS: CEFTAZIDIME IV SCH ×3 (04:01→20:00)
[2016-12-12] MEDS: RACEPINEPHRINE 0.5 ML NEB RESP TX SCH ×4 (07:45→18:55)
--- NOTE | 2016-12-12 08:22 | Oncology Progress Note ---
Assessment and Plan (1) Small cell carcinoma of lung Status: Acute Assessment and plan: We will give the patient nebulized pulmonary medications and discussion for racemic epinephrine also. Antitussives are also ordered with daily lab monitoring. Current Visit: Yes Oncology Subjective PN Interval history: Patient is resting on room air in no acute distress. His lungs are without wheezes at this time. I have reviewed his chest x-ray shows no worsening findings with emphasis upon the left lower lobe. He still has what I would call scant hemoptysis though this is certainly improved when compared to admission. His sodium is showing improvement. He has ambulated quite a bit that he tells me. I am having the social service director see him to assist with disability. I am going to try to discharge him within the next 24-48 hours. I will plan on 7-10 days of home oral antibiotics. Exam - Constitutional Vitals: Period Temp Pulse Resp BP Sys/Carrero Pulse Ox Last 24 Hr 97 F-98.8 F 85-109 16-20 128-140/71-81 90-100 Results - Labs CBC & BMP: 12/11/16 04:24 12/11/16 04:24
--- NOTE | 2016-12-12 08:43 | XRay Report ---
2 view chest. Indication: Hemoptysis. Comparison: December 11, 2016. The heart is normal in size. The pulmonary vasculature is normal. There is infiltrate present within the left lower lobe, rather extensive and stable. No pneumothorax. Small right pleural effusion. Degenerative changes are seen within the spinal column. Impression: Stable left lower lobe pneumonia. Small right pleural effusion. PROCEDURE INTERPRETED AT [facility] DEPARTMENT OF RADIOLOGY Final Report Signed by: Dr. Margarita Lala
[2016-12-12] MEDS: COLLAGENASE OINT 30 GM TUBE TOP SCH (08:57)
[2016-12-12] MEDS: DILTIAZEM CD 120 MG CAPSULE PO SCH (08:57)
[2016-12-12] MEDS: amLODIPine 10 MG TABLET PO SCH (08:57)
[2016-12-12] MEDS: FLUTICASONE 50 MCG NASAL SPRAY 16 GM BOTTLE BOTH NARES SCH (08:58)
[2016-12-12] MEDS: LEVOFLOXACIN INJ 500 MG in PREMIX 1 EACH IV SCH (10:25)
--- NOTE | 2016-12-12 11:37 | Pulmonology Progress Note ---
Pulmonary - PN: Subj Interval history: Mr. Barlow is a 61-year-old white male who we saw in initial pulmonary consultation on 12/08/2016. At that time, our impressions were: 1. Acute hemoptysis. Most likely from the left lower lung in this patient who previously had hemoptysis secondary to small cell carcinoma. Hopefully this is related to tumor necrosis. 2. With atelectasis of the left lower lung we have to assume that the patient may be infected. His admit white count was 13,500 and has increased to 20,000 with a left shift. Since he grew methicillin-resistant staph aureus from his bronchoscopy about a month ago we will cover for that and will also cover for the possibility of gram-negative. 3. 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 Post chemotherapy this week 4. Past history tobacco abuse 5. COPD 6. History of hiatal hernia and gastroesophageal reflux disease and esophageal stricture 7. Hyperlipidemia 8. High blood pressure 12/11/2016. The patient was seen today along with his . The patient's hemoptysis has decreased secondary to racemic epinephrine. Sputum Gram stain showed few gram-negative rods, few gram-positive cocci in clusters, and few gram -positive rods. Sputum culture has grown Klebsiella oxytoca. He was previously on vancomycin and Fortaz. Vancomycin was discontinued over the weekend. The Fortaz was continued. We will add Levaquin for double antibiotic coverage. Obviously, the patient feels better today than he did on Sunday when we initially saw him. Chest x-ray today shows a left perihilar infiltrate. This is become more evident over time. It was, however, present at admission. The Klebsiella is the cause of his infiltrate. Medications have been reviewed. Levaquin was added today. Labs been reviewed. White count has fallen to 11,100 with 92.9% segs; H&H 9.8/ 28.9; platelet count 348,000; creatinine 0.60, BUN 14, sodium 135, potassium 4.2 , magnesium 2.6 12/12/2016. Patient's chest x-ray continues to improve. Previously noted left lower lung atelectasis has resolved. He now has a left perihilar infiltrate. The remainder of the lung mullins show an element of hyperinflation compatible with known COPD. Sputum's have grown Klebsiella. White blood cell count is dropped from 22,300-11,100. H&H is 9.8/28.9. Platelets of 348,000. Sodium has improved from 129-135. Potassium 4.2. Creatinine is 0.60 with a BUN of 14. Patient continues to have some hemoptysis and this is as expected. He was initially bronchoscoped because of hemoptysis and found to have lung cancer. He has recently received chemotherapy and hope we are dealing with necrotic tissue secondary to chemotherapy. Chest is cleared up and he is now wheeze free. Patient looks like he feels good and he says he feels good. He is eating well. It is anticipated he may be ready for discharge by . Physical exam. Vital signs. See below. Afebrile. Psychiatric oriented 3. General no apparent distress. Very talkative. Face. Symmetrical. No edema of the lips or tongue. Neck. Symmetrical no meningismus Chest. Fairly clear and wheeze free Heart no gallop Abdomen nondistended bowel sounds are positive Extremities no edema Neurologic. Cranial nerves are intact with some decreased hearing acuity long track motor function is intact. The remainder of the physical exam is negative Plan. 12/12/2016. 1. See today's note above. 2. I agree with your plans. Exam (Progress Note) - Constitutional Vitals: Period Temp Pulse Resp BP Sys/Carrero Pulse Ox Last 24 Hr 97 F-98.8 F 85-107 16-20 128-140/71-85 90-100 Results - Labs CBC & BMP: 12/11/16 04:24 12/11/16 04:24
[2016-12-12] MEDS: TEMAZEPAM 7.5 MG CAPSULE PO PRN (22:24)
[2016-12-13] MEDS: methylPREDNISolone SOD SUC 40 MG/1 ML VIAL IV SCH ×2 (02:07→13:01)
[2016-12-13] MEDS: HYDROcodone/HOMATROPINE 5 ML UDCUP PO SCH ×2 (04:11→13:01)
[2016-12-13] MEDS: CEFTAZIDIME IV SCH ×2 (04:11→13:01)
[2016-12-13] MEDS: DEXTROSE 5% IV SCH ×2 (04:11→13:01)
[2016-12-13] MEDS: RACEPINEPHRINE 0.5 ML NEB RESP TX SCH ×2 (06:55→11:06)
--- NOTE | 2016-12-13 08:36 | Discharge Summary ---
Hospital Course - Hospital Course Hospital Course: Patient recently diagnosed small cell lung cancer involving the left lower lobe. Patient also with metastatic disease to the bones and liver. He was admitted approximately 5 days after his first chemotherapy with hemoptysis. He was seen in consultation by Dr. Ramos. The patient's blood counts have been stable during his hospitalization. We have treated him with racemic epinephrine , albuterol, and IV steroids. He is noted to have a positive sputum culture with Klebsiella with 10 days of ciprofloxacin 500 mg twice daily provided on discharge today. He and his were advised to avoid aspirin and other nonsteroidal products. Home medications will be continued. Follow-up as previously scheduled for evaluation of chemotherapy cycle #2 on December 25 Diagnosis - Discharge Diagnosis (1) Small cell carcinoma of lung Status: Acute Discharge Plan - Discharge Medications Continue Benazepril [Lotensin] 40 mg PO DAILY guaiFENesin TAB [Organidin Nr] 200 mg PO DAILY Albuterol Sulfate [Ventolin HFA] 2 puff INH TID dilTIAZem HCl [Diltiazem ER (12 hr)] 120 mg PO DAILY Hydrocodone/Acetaminophen [Hydrocodon-Acetaminophen 5-325] 1 each PO Q4-6H PRN PRN Reason: Pain Potassium Gluconate 99 mg PO DAILY hydroCHLOROthiazide [Hydrochlorothiazide] 25 mg PO DAILY amLODIPine [Norvasc] 10 mg PO DAILY [place] 3 Acid Ethyl Esters [Lovaza] 2 gm PO BID Aspirin EC Tab 81 mg PO DAILY diphenhydrAMINE HCl [diphenhydrAMINE Tab] 25 mg PO DAILY PRN PRN Reason: Itching Discontinued Atorvastatin [Lipitor] 20 mg PO QPM - Follow Up or Referral - Forms/Instructions Exam - Constitutional Vitals: Period Temp Pulse Resp BP Sys/Carrero Pulse Ox Last 24 Hr 97 F-98.4 F 72-101 16-20 138-172/75-88 90-100 DS: Provider Date of admission: 12/07/16 15:15 Primary care physician: YOSEPH Avalos Attending physician on admission: Jhonny Garnett MD Consults: 12/08/16 09:33 Consult to Physician [CONS] Routine Comment: hemoptysis Consulting Provider: Cordell Almeida Consulting Provider Notified: Yes When should Consulting Provider be notified: Now Consult to Specialist Group: Pulmonology When should Consulting Provider be notified: Now Person Notified: jillian Date Notified: 12/08/16 Time Notified: 09:34 12/08/16 11:08 Consult to Pharmacy [CONS] Routine Reason for Pharmacy Consult: Dose/Manage Vancomycin 12/08/16 11:59 Consult to Wound Care - [place] [CONS] Routine Reason for Wound Care: Wound Care Management Consult Comment: left great toe, please see today Discharging clinician: Jhonny Garnett MD
[2016-12-13] MEDS: DILTIAZEM CD 120 MG CAPSULE PO SCH (09:04)
[2016-12-13] MEDS: FLUTICASONE 50 MCG NASAL SPRAY 16 GM BOTTLE BOTH NARES SCH (09:07)
[2016-12-13] MEDS: COLLAGENASE OINT 30 GM TUBE TOP SCH (09:07)
[2016-12-13] MEDS: amLODIPine 10 MG TABLET PO SCH (09:08)
--- NOTE | 2016-12-13 09:34 | Pulmonology Progress Note ---
Pulmonary - PN: Subj Interval history: Mr. Barlow is a 61-year-old white male who we saw in initial pulmonary consultation on 12/08/2016. At that time, our impressions were: 1. Acute hemoptysis. Most likely from the left lower lung in this patient who previously had hemoptysis secondary to small cell carcinoma. Hopefully this is related to tumor necrosis. 2. With atelectasis of the left lower lung we have to assume that the patient may be infected. His admit white count was 13,500 and has increased to 20,000 with a left shift. Since he grew methicillin-resistant staph aureus from his bronchoscopy about a month ago we will cover for that and will also cover for the possibility of gram-negative. 3. 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 Post chemotherapy this week 4. Past history tobacco abuse 5. COPD 6. History of hiatal hernia and gastroesophageal reflux disease and esophageal stricture 7. Hyperlipidemia 8. High blood pressure 12/11/2016. The patient was seen today along with his . The patient's hemoptysis has decreased secondary to racemic epinephrine. Sputum Gram stain showed few gram-negative rods, few gram-positive cocci in clusters, and few gram -positive rods. Sputum culture has grown Klebsiella oxytoca. He was previously on vancomycin and Fortaz. Vancomycin was discontinued over the weekend. The Fortaz was continued. We will add Levaquin for double antibiotic coverage. Obviously, the patient feels better today than he did on Sunday when we initially saw him. Chest x-ray today shows a left perihilar infiltrate. This is become more evident over time. It was, however, present at admission. The Klebsiella is the cause of his infiltrate. Medications have been reviewed. Levaquin was added today. Labs been reviewed. White count has fallen to 11,100 with 92.9% segs; H&H 9.8/ 28.9; platelet count 348,000; creatinine 0.60, BUN 14, sodium 135, potassium 4.2 , magnesium 2.6 12/12/2016. Patient's chest x-ray continues to improve. Previously noted left lower lung atelectasis has resolved. He now has a left perihilar infiltrate. The remainder of the lung mullins show an element of hyperinflation compatible with known COPD. Sputum's have grown Klebsiella. White blood cell count is dropped from 22,300-11,100. H&H is 9.8/28.9. Platelets of 348,000. Sodium has improved from 129-135. Potassium 4.2. Creatinine is 0.60 with a BUN of 14. Patient continues to have some hemoptysis and this is as expected. He was initially bronchoscoped because of hemoptysis and found to have lung cancer. He has recently received chemotherapy and hope we are dealing with necrotic tissue secondary to chemotherapy. Chest is cleared up and he is now wheeze free. Patient looks like he feels good and he says he feels good. He is eating well. It is anticipated he may be ready for discharge by . 12/13/2016. Patient seen along with his and Marquise Hernandez nurse practitioner. His breathing is much better. He still has a little bit of old blood in his sputum. He is afebrile. He is going home today. He will be on antibiotics. I agree with present treatment plan. Sputum grew Klebsiella. There are no new cultures. Labs been reviewed and medicines have been reviewed. I will sign off. Reconsult when needed Physical exam. Vital signs. See below. Afebrile. Psychiatric oriented 3. General no apparent distress. Very talkative. Face. Symmetrical. No edema of the lips or tongue. Neck. Symmetrical no meningismus Chest. Fairly clear and wheeze free Heart no gallop Abdomen nondistended bowel sounds are positive Extremities no edema Neurologic. Cranial nerves are intact with some decreased hearing acuity long track motor function is intact. The remainder of the physical exam is negative Plan. 12/12/2016. 1. See today's note above. 2. I agree with your plans. 12/13/2016. 1. See today's note, above 2. I will sign off. Reconsult when needed Exam (Progress Note) - Constitutional Vitals: Period Temp Pulse Resp BP Sys/Carrero Pulse Ox Last 24 Hr 97 F-98.4 F 72-101 16-20 138-172/75-88 90-100 Results - Labs CBC & BMP: 12/11/16 04:24 12/11/16 04:24
[2016-12-13 11:57] VITALS: BP 150/88
[2016-12-13] MEDS: LEVOFLOXACIN INJ 500 MG in PREMIX 1 EACH IV SCH (13:00)
== END 2016-12-13 11:55 | disposition home or self-care (01) | DRG 136 ==
LOC: EDUNIT# → EDBD → N.ED 13:01 → N.EDINP 15:15 → N.4E 16:40
PROVIDERS: ADMIT Specialist; ATTEND Specialist

== ENCOUNTER 2016-12-29 16:46 | Inpatient (IN) ==
--- NOTE | 2016-12-29 17:07 | Emergency Department Note ---
Lisa Schulte Rolonda, am scribing for, and in the presence of, Cristian Galeana MD 17: 05. Lissett Schulte James D, MD, personally performed the services described in this documentation, ascribed by Mar Gonzalez in my presence, and it is both accurate and complete 707 . Arrival - Arrival Chief Complaint: Upper Respiratory ED Nursing Triage Note: Brought in by EMS, transfer from [facility] c/o coughing up blood--patient states this has been going on since starting chemo for lung ca , but bleeding was worse today. Mode of Arrival: Stretcher Limitations: No Limitations Source: Patient, Old Records Reviewed, RN Notes Reviewed Time Seen by Provider: 12/29/16 17:00 - History of Present Illness HPI Narrative: Pt is a 61 y/o female who presents to the ED from [facility] with c/o coughing up blood with an onset of x2 months. Pt has a PMHx of Lung cancer, HTN and PNA. He states that he has been coughing up blood since he started chemo with Dr. Garnett. Pt denies being on blood thinners and confirms that he is getting radiation as well. No other complaint/pain in ED. Onset (ago): month(s) Consistency: constant Severity: moderate Severity scale (1-10): 4 Allergies/Adverse Reactions: Allergies Allergy/AdvReac Type Severity Reaction Status Date / Time influenza virus vaccine, Allergy Severe ANAPHYLAXIS Verified 11/09/16 06:57 specific Home Medications: Home Medications Medication Instructions Recorded Confirmed Type Benazepril [Lotensin] 40 mg PO DAILY 11/08/16 12/22/16 History amLODIPine [Norvasc] 10 mg PO DAILY 11/08/16 12/22/16 History hydroCHLOROthiazide 25 mg PO DAILY 11/08/16 12/22/16 History [Hydrochlorothiazide] Albuterol Sulfate [Ventolin HFA] 2 puff INH TID 12/07/16 12/22/16 History Hydrocodone/Acetaminophen 1 each PO Q4-6H PRN 12/07/16 12/22/16 History [Hydrocodon-Acetaminophen 5-325] Ciprofloxacin Tab [Cipro Tab] 500 mg PO BID 12/13/16 12/22/16 History Atorvastatin Calcium [Atorvastatin 20 mg PO BEDTIME 12/22/16 12/22/16 History Calcium] Cetirizine HCl [Cetirizine Tab] 10 mg PO DAILY 12/22/16 12/22/16 History Ciprofloxacin Tab [Cipro Tab] 500 mg PO Q12HR #20 tablet 12/22/16 Rx Linagliptin [Tradjenta] 5 mg PO DAILY 12/22/16 12/22/16 History Meclizine [Antivert] 25 mg PO QID PRN #20 tablet 12/22/16 Rx dilTIAZem HCl [Diltiazem ER (24 120 mg PO DAILY 12/22/16 12/22/16 History hr)] Review of System - Review of System 12 point system: reviewed and no additional remarkable complaints except as stated - Review of System Constitutional: Absent: chills Eyes: Absent: discharge Head/Ears/Nose/Throat: Absent: earache Respiratory: Absent: cough Cardiovascular: Absent: chest pain Gastrointestinal: Present: hematochezia (coughing up blood). Absent: abdominal pain Genitourinary male: Absent: dysuria Musculoskeletal: Absent: arm pain Skin: Absent: rash Neurological: Absent: headache Psychiatric: Absent: anxiety Endocrine: Absent: cold intolerance Hematological/Lymphatic: Absent: easy bleeding Allergic/Immunologic: Absent: facial swelling Medical,Surgical,& Family Hx - Medical History Cardio: History of: Cardiac Dysrhythmia, Hypertension Neurology: History of: TIA (MONTH OR TWO AGO POSS?) No history of: Seizures HEENT: Comment Only: Dental Problems (SOME TEETH BROKE OFF) Endocrine: No history of: Thyroid Disorder Comment Only: Diabetes Mellitus (NIDDM) (BORDERLINE) Respiratory: History of: Bronchitis, Pneumonia (6 MONTHS AGO) Gastrointestinal: History of: GERD, GI Problems (STOMACH ULCERS) No history of: Hepatitis, Liver Problems Musculoskeletal: History of: Musculoskeletal Problems (BOTH ANKLES BROKEN, WITH PINS/FIXATOR) Other: No history of: Anesthesia Reactions (HARD TO BUT TO SLEEP/ HIGH TOLERANCE FOR PAIN) - Surgical History Cardiac Surgeries: Patient Denies: Cardiac Catheterization Reproductive Surgeries: Comment Only: Prostate Surgery (SLOW MOVING CA OVER 20 YRS IN PROSTATE ACCORDING TO , DOES NOT SEE MD) - Social History Smoking Status: Former smoker Frequency of Alcohol Use: None Type of Drug Use: None Exam Vital Signs: Vital Signs Temperature 98.7 F 12/29/16 16:53 Pulse Rate 110 H 12/29/16 16:53 Respiratory Rate 20 12/29/16 16:53 Blood Pressure 120/69 12/29/16 16:53 O2 Sat by Pulse Oximetry 99 12/29/16 16:53 GENERAL: This is a well-nourished well-developed disheveled white male in no apparent distress. VITAL SIGNS: Reviewed HEENT: Head is atraumatic and normocephalic. Pupils are equal round react to light. Extraocular movements are intact. Oropharynx is benign with moist mucous membranes. NECK: Neck is soft and supple without tenderness. There are no masses. There is no lymphadenopathy. LUNGS: Scattered rhonchi in all lung mullins. Chest rises symmetrically. There is no chest wall tenderness. CV: Heart is regular rate and rhythm without murmurs rubs or gallops. ABDOMEN: Abdomen is soft, nontender to palpation. There are no abdominal abnormal masses palpated. There is no organomegaly. Bowel sounds are present and active. SKIN: Skin is warm and dry. No rash. EXTREMITIES: Patient has full range of motion without tenderness. There is no pedal edema. NEUROLOGIC: Awake alert and oriented 4. Cranial nerves II through XII are intact. Motor is 5 over 5 in all extremities bilaterally. Deep tendon reflexes are 2+ and bilaterally equal. Results - Labs Lab Results: I have reviewed the patients labs - Diagnostic Findings Procedure: Chest x-ray: image reviewed by me (Left-sided lung mass with possible postobstructive pneumonia.) Disposition Clinical Impression: Small cell carcinoma of lung, Pneumonia Case discussed with: patient Disposition: Still a Patient Condition: Stable
[2016-12-29] MEDS ORDERED: PIPERACILLIN/TAZOBACTAM 3,375 MG in SODIUM CHLORIDE 0.9% 100 ML IV STA (17:27)
[2016-12-29] MEDS ORDERED: methylPREDNISolone SOD SUC 125 MG/2 ML VIAL IV STA (17:27)
[2016-12-29] MEDS ORDERED: ALBUTEROL 2.5 MG/3 ML NEB RESP TX STA (17:39)
[2016-12-29] MEDS ORDERED: methylPREDNISolone SOD SUC 125 MG/2 ML VIAL ONE (17:45)
[2016-12-29] MEDS ORDERED: PIPERACILLIN/TAZOBACTAM 3,375 MG VIAL IV ONE (17:45)
--- NOTE | 2016-12-29 17:45 | XRay Report ---
Portable chest December 29, 2016 Indication: Hemoptysis Comparison images dated December 22, 2016 Findings: Large left hilar mass with perihilar volume loss. Right lung remains clear. Cardiomediastinal contours are within normal limits. No acute osseous abnormalities. Impression: Left hilar mass with associated perihilar atelectasis. Follow-up with postcontrast CT imaging as clinically indicated. PROCEDURE INTERPRETED AT [facility] DEPARTMENT OF RADIOLOGY Final Report Signed by: Mando Mcfarlane
[2016-12-29 18:15] LABS: Basophils # 0.2 10*3/uL (0.0-0.2); Basophils % 0.4 % (0.0-0.8); Hematocrit 21.3 VOL% (42.0-52.0); Hemoglobin 7.1 GM/DL (14.0-18.0); Immature Granulocytes % 15.1 %; Immature Granulocytes Absolute 5.96 #; Lymphocytes # 0.7 10*3/uL (1.4-4.0); Lymphocytes % 1.7 % (21.2-54.2); Mean Corpuscular HGB Conc 33.3 GM/DL (32-36); Mean Corpuscular Hemoglobin 30 PG (27-34); Mean Corpuscular Volume 89.5 FL (87-102); Mean Platelet Volume 8.8 FL (9.6-12.0); Monocytes # 0.2 10*3/uL (0.11-0.8); Monocytes % 0.6 % (1.7-12.7); Neutrophils # 32.4 10*3/uL (1.4-7.4); Neutrophils % 82.2 % (38.7-73.9); Platelet Count 502 T/CUMM (130-400); Red Blood Count 2.38 MC/CUMM (3.8-5.5); Red Cell Distribution Width 17.7 % (9.3-17.3); White Blood Count 39.5 T/CUMM (4-12)
[2016-12-29 18:36] LABS: Albumin 2.3 G/DL (3.4-5.0); Bilirubin,Total 0.6 MG/DL (0.2-1.0); Calcium 8.6 MG/DL (8.5-10.1); Osmolality,Calculated 272.4 MOS/KG (273-304); Potassium 4.2 MMOL/L (3.5-5.1)
[2016-12-29 18:37] LABS: PT Patient Result 10.6 SECS; Partial Thromboplastin Time 33.1 SECS (0-40)
[2016-12-29] MEDS ORDERED: ONDANSETRON 4 MG/2 ML VIAL IV PRN (19:29)
[2016-12-29] MEDS ORDERED: chlorproMAZINE INJ 25 MG in SODIUM CHLORIDE 0.9% 100 ML IV PRN (19:29)
[2016-12-29] MEDS ORDERED: MYLANTA/LIDO VISC 2:1 300 ML BOTTLE SWISH/SWAL PRN (19:29)
[2016-12-29] MEDS ORDERED: traMADol 50 MG TABLET PO PRN (19:29)
[2016-12-29] MEDS ORDERED: ALUMINUM/MAGNES/SIMETH MAX STR 30 ML UDCUP PO PRN (19:29)
[2016-12-29] MEDS ORDERED: BENZTROPINE 2 MG/2 ML AMP IV PRN (19:29)
[2016-12-29] MEDS ORDERED: ALPRAZolam 0.25 MG TABLET PO PRN (19:29)
[2016-12-29] MEDS ORDERED: MAGNESIUM HYDROXIDE SUSP 30 ML UDCUP PO PRN (19:29)
[2016-12-29] MEDS ORDERED: diphenhydrAMINE CAP 25 MG CAPSULE PO PRN (19:29)
[2016-12-29] MEDS ORDERED: MYLANTA/LIDO VISC 2:1 300 ML BOTTLE SWISH/SPIT PRN (19:29)
[2016-12-29] MEDS ORDERED: PROMETHAZINE INJ 25 MG in SODIUM CHLORIDE 0.9% 50 ML IV PRN (19:29)
[2016-12-29] MEDS ORDERED: ACETAMINOPHEN 325 MG TABLET PO PRN (19:29)
[2016-12-29] MEDS ORDERED: LOPERAMIDE 2 MG CAPSULE PO PRN ×2 (19:29)
[2016-12-29] MEDS ORDERED: LACTULOSE 20 GM/30 ML UDCUP PO PRN (19:29)
[2016-12-29] MEDS ORDERED: chlorproMAZINE 25 MG TABLET PO PRN (19:29)
[2016-12-29] MEDS ORDERED: chlorproMAZINE INJ 50 MG in SODIUM CHLORIDE 0.9% 100 ML IV PRN (19:29)
[2016-12-29] MEDS: SODIUM CHLORIDE 0.9% 1,000 ML IV SCH (20:03)
[2016-12-29 20:18] LABS: Band Neutrophils 2 % (0-10); Lymphocytes 2 % (20-55); Platelet Estimate Increased; Segmented Neutrophils 95 % (50-85); Total Cells Counted 100
[2016-12-29 20:19] LABS: Poikilocytosis Slight; Stomatocytes Slight; Tear Drop Cells Slight
[2016-12-29] MEDS: guaiFENesin 200 MG/10 ML UDCUP PO PRN (21:57)
[2016-12-29] MEDS: TEMAZEPAM 7.5 MG CAPSULE PO PRN (21:57)
[2016-12-29] MEDS: PIPERACILLIN/TAZOBACTAM 3,375 MG in SODIUM CHLORIDE 0.9% 100 ML IV SCH (21:58)
[2016-12-29] MEDS: methylPREDNISolone SOD SUC 125 MG/2 ML VIAL IV SCH ×2 (21:58→23:42)
[2016-12-30] MEDS: methylPREDNISolone SOD SUC 125 MG/2 ML VIAL IV SCH ×5 (05:53→23:19)
[2016-12-30] MEDS: PIPERACILLIN/TAZOBACTAM 3,375 MG in SODIUM CHLORIDE 0.9% 100 ML IV SCH (05:54)
[2016-12-30 06:29] LABS: Basophils # 0.2 10*3/uL (0.0-0.2); Basophils % 0.6 % (0.0-0.8); Hematocrit 25.6 VOL% (42.0-52.0); Hemoglobin 8.4 GM/DL (14.0-18.0); Immature Granulocytes % 19.6 %; Immature Granulocytes Absolute 6.21 #; Lymphocytes # 0.3 10*3/uL (1.4-4.0); Lymphocytes % 0.9 % (21.2-54.2); Mean Corpuscular HGB Conc 32.8 GM/DL (32-36); Mean Corpuscular Hemoglobin 29 PG (27-34); Mean Corpuscular Volume 89.5 FL (87-102); Mean Platelet Volume 9.1 FL (9.6-12.0); Monocytes # 0.1 10*3/uL (0.11-0.8); Monocytes % 0.2 % (1.7-12.7); Neutrophils # 24.9 10*3/uL (1.4-7.4); Neutrophils % 78.7 % (38.7-73.9); Platelet Count 490 T/CUMM (130-400); Red Blood Count 2.86 MC/CUMM (3.8-5.5); Red Cell Distribution Width 17.5 % (9.3-17.3); White Blood Count 31.6 T/CUMM (4-12)
[2016-12-30 07:26] LABS: Band Neutrophils 3 % (0-10); Hypochromasia 1+; Lymphocytes 4 % (20-55); Platelet Estimate Increased; Segmented Neutrophils 90 % (50-85); Total Cells Counted 100
[2016-12-30 07:27] LABS: Microcytosis 1+
--- NOTE | 2016-12-30 08:30 | XRay Report ---
2 view chest December 30, 2016 Indication: Shortness of breath Comparison images dated December 12, 2016 Findings: Left perihilar mass and associated lower lobe consolidation with volume loss is essentially unchanged in the interim. Right lung remains well aerated. Cardiomediastinal contours are stable. Impression: No interval change in appearance of the obstructing left perihilar mass and associated left lower lobe consolidation. PROCEDURE INTERPRETED AT [facility] DEPARTMENT OF RADIOLOGY Final Report Signed by: Mando Mcfarlane
--- NOTE | 2016-12-30 08:59 | EKG Report ---
Stationary ECG Study [facility] ER Test Date: 12/29/2016 5:51:06 PM Pat Name: COLLINS BOX Department: Room: 420 Gender: M [employer]: : 1955 Requested by: Cristian Gamino Order Number: [id number] Reading MD: DELVIS OLEA Intervals [place] Rate: 114 P: 57 AR: 137 QRS: 74 QRSD: 103 T: 9 QT: 308 QTc: 376 Interpretive Statements SINUS TACHYCARDIA RIGHT AXIS DEVIATION INCOMPLETE RIGHT BUNDLE BRANCH BLOCK Electronically Signed On 12-30-16 13:44:51 CDT by DELVIS OLEA [email or web address]
--- NOTE | 2016-12-30 09:40 | Oncology History&Physical ---
History of Present Illness History of present illness: Mr. Barlow is a 61 year old male with stage IV small cell lung cancer admitted with hemoptysis that is recurrent. This patient is admitted with recurrent hemoptysis. he has a history of small cell lung cancer with stage IV disease. he is on etoposide and carboplatin and received her second course of chemotherapy earlier this week, on Sunday, Sunday and Sunday.. She presented to the emergency room with hemoptysis and was diagnosed as having pneumonia. He is still having episodes of hemoptysis. His pulmonary doctor, Dr. Almeida, is baton teacher and I am consulting him today. A chest x-ray done on admission demonstrates loss of volume in the left perihilar area. The right lung is clear. he is on radiation therapy as well as chemotherapy using etoposide and carboplatin and she has had 2 courses of etoposide and carboplatin. Lab work today includes a white cell count of 31,600 with a hemoglobin of 8.4 and a platelet count of 490,000 The comprehensive metabolic profile done yesterday afternoon, includes a serum creatinine of 0.9 with a urea nitrogen of 26. The alkaline phosphatase is 150. The rest of the comprehensive metabolic profile is normal. Medical,Surgical,& Family Hx - Medical History Cardio: History of: Cardiac Dysrhythmia, Hypertension Neurology: History of: TIA No history of: Seizures HEENT: Comment Only: Dental Problems (SOME TEETH BROKE OFF) Endocrine: No history of: Thyroid Disorder Comment Only: Diabetes Mellitus (NIDDM) (BORDERLINE) Respiratory: History of: Bronchitis, Pneumonia, Lung Cancer Gastrointestinal: History of: GERD, GI Problems (STOMACH ULCERS) No history of: Hepatitis, Liver Problems Musculoskeletal: History of: Musculoskeletal Problems (BOTH ANKLES BROKEN, WITH PINS/FIXATOR) Other: No history of: Anesthesia Reactions (HARD TO BUT TO SLEEP/ HIGH TOLERANCE FOR PAIN) - Surgical History Cardiac Surgeries: Patient Denies: Cardiac Catheterization Reproductive Surgeries: Comment Only: Prostate Surgery (SLOW MOVING CA OVER 20 YRS IN PROSTATE ACCORDING TO , DOES NOT SEE MD) - Social History Smoking Status: Former smoker Frequency of Alcohol Use: None Type of Drug Use: None - Constitutional Constitutional: Present: fatigue. Absent: fever(s) - EENT Eye: Absent: blurry vision Ears: Absent: decreased hearing Nose, mouth and throat: Absent: dizziness, dysphagia, epistaxis, neck pain, vertigo - Respiratory Respiratory: Present: dyspnea, hemoptysis, wheezing -Cardiovascular: No history of cardiac chest pain or syncope GI: He has had nausea and vomiting intermittently and has had constipation. Genitourinary Genitourinary ROS male: Absent: difficulty urinating - Psychiatric Psychiatric General: Absent: confusion - Hematologic/Lymphatic Hematologic/Lymphatic: Absent: easy bruising Lab work today includes white cell count of 31,600 with a hemoglobin of 8.4 and a platelet count of 490,000. Physical examination: General: The patient appears both acutely and chronically ill. Eyes: Lids and conjunctivae are normal except that his lids are crusty. ENT: Edentulous. Oral mucosa and pharynx are normal. Hearing is normal. Neck: His trachea is midline. Thyroid appears normal. I palpate no neck masses. Lungs: Breath sounds are markedly reduced throughout. He has very little wheezing but he is unable to expel wheelchair from his lungs on expiration. Cardiovascular: His heart rhythm is regular without murmur, gallop or rub. There is no jugular venous distention, clubbing, cyanosis or edema. Abdomen: I palpate no abdominal masses, ascites or organomegaly. There is no tenderness. Musculoskeletal: He has truncal obesity. There is no focal muscle atrophy or bone or joint deformity. He is generally weak. Neurologic: Cranial nerves II through XII are intact. There are no focal neurologic deficits. Nodes: I palpate no submandibular, cervical, supraclavicular or axillary adenopathy. Psychiatric: He appears to be fully oriented to time, place, person and situation. Skin: I see no significant skin rashes or lesions. Impression: Hemoptysis with some change in his x-ray that I do not think is due to pneumonia but we will follow serial x-rays. I will also consult Dr. Almeida. Severe COPD: Anemia: His hemoglobin today is 8.4. I am going to go ahead and transfuse 2 units of packed red cells. Home Medications Medication Instructions Recorded Confirmed Type Benazepril [Lotensin] 40 mg PO QAM 11/08/16 12/29/16 History amLODIPine [Norvasc] 10 mg PO QAM 11/08/16 12/29/16 History hydroCHLOROthiazide 25 mg PO QAM 11/08/16 12/29/16 History [Hydrochlorothiazide] Albuterol Sulfate [Ventolin HFA] 2 puff INH TID 12/07/16 12/29/16 History Hydrocodone/Acetaminophen 1 each PO Q4-6H PRN 12/07/16 12/29/16 History [Hydrocodon-Acetaminophen 5-325] Atorvastatin Calcium [Atorvastatin 20 mg PO BEDTIME 12/22/16 12/29/16 History Calcium] Cetirizine HCl [Cetirizine Tab] 10 mg PO QAM 12/22/16 12/29/16 History Ciprofloxacin Tab [Cipro Tab] 500 mg PO Q12HR #20 tablet 12/22/16 12/29/16 Rx Linagliptin [Tradjenta] 5 mg PO QAM 12/22/16 12/29/16 History Meclizine [Antivert] 25 mg PO QID PRN #20 tablet 12/22/16 12/29/16 Rx dilTIAZem HCl [Diltiazem ER (24 120 mg PO QAM 12/22/16 12/29/16 History hr)] Hydrocodone Bit/Homatrop Me-Br 10 ml PO Q4H PRN 12/29/16 12/29/16 History [Hydrocodone-Homatropine Syrup] Allergies Allergy/AdvReac Type Severity Reaction Status Date / Time influenza virus vaccine, Allergy Severe ANAPHYLAXIS Verified 11/09/16 06:57 specific Medical,Surgical,& Family Hx - Medical History Cardio: History of: Cardiac Dysrhythmia (tachycardia), Hypertension Neurology: History of: TIA (MONTH OR TWO AGO POSS?) No history of: Seizures HEENT: Comment Only: Dental Problems (SOME TEETH BROKE OFF) Endocrine: No history of: Thyroid Disorder Comment Only: Diabetes Mellitus (NIDDM) (BORDERLINE) Respiratory: History of: Bronchitis, Pneumonia (6 MONTHS AGO), Lung Cancer Gastrointestinal: History of: GERD, GI Problems (STOMACH ULCERS) No history of: Hepatitis, Liver Problems Musculoskeletal: History of: Musculoskeletal Problems (BOTH ANKLES BROKEN, WITH PINS/FIXATOR, "bad knees") No history of: Amputation Other: No history of: Anesthesia Reactions (HARD TO BUT TO SLEEP/ HIGH TOLERANCE FOR PAIN) - Surgical History Cardiac Surgeries: Patient Denies: Cardiac Catheterization Thoracic Surgeries: Patient denies;: Lobectomy Abdominal Surgeries: Patient denies: Abdominal Surgery Reproductive Surgeries: Comment Only: Prostate Surgery (SLOW MOVING CA OVER 20 YRS IN PROSTATE ACCORDING TO , DOES NOT SEE MD) - Family History Family History: Reports;: Family Cancer (Mother- colon ca) - Social History Smoking Status: Former smoker Frequency of Alcohol Use: None Type of Drug Use: None Exam - Constitutional Vitals: Period Temp Pulse Resp BP Sys/Carrero Pulse Ox Last 24 Hr 96.4 F-98.7 F 100-118 18-22 100-147/48-77 91-100 Results - Labs CBC & BMP: 12/30/16 02:53 12/29/16 18:02
[2016-12-30] MEDS ORDERED: SODIUM CHLORIDE 0.9% 250 ML IV PRN (12:03)
[2016-12-30] MEDS ORDERED: MECLIZINE 25 MG TABLET PO PRN (12:13)
[2016-12-30] MEDS: amLODIPine 10 MG TABLET PO SCH (14:36)
[2016-12-30] MEDS: MEROPENEM 1,000 MG in SODIUM CHLORIDE 0.9% 100 ML IV SCH ×2 (14:36→22:12)
[2016-12-30] MEDS: BENAZEPRIL 40 MG TABLET PO SCH (14:37)
[2016-12-30] MEDS: hydroCHLOROthiazide 25 MG TABLET PO SCH (14:37)
[2016-12-30] MEDS: DILTIAZEM CD 120 MG CAPSULE PO SCH (14:37)
[2016-12-30] MEDS ORDERED: RACEPINEPHRINE 0.5 ML NEB RESP TX SCH (15:00)
--- NOTE | 2016-12-30 15:24 | Pulmonology Consult Note ---
History of Present Illness Chief complaint: Hemoptysis. Obstructive pneumonia. Cancer of the lung. History of present illness: Mr. Barlow is a 61 year old white male whom I been asked to see in pulmonary consultation for evaluation and treatment. This patient was hospitalized here recently he had atelectasis of his left lower lung which resolved. His sputum grew Klebsiella. He was treated based on the sensitivities and he was covered for other organisms. He had hemoptysis at that time. This was related to his cancer and perhaps exacerbated by his recent chemotherapy. This improved during his hospitalization with inhaled racemic epinephrine. Patient says that his hemoptysis is still present but is very little. He has had a cough productive of greenish sputum. It sounds like he has had episodes of diaphoresis and fever. It is very hard to get a straightforward clear history from this patient. The remainder of his review of systems is negative. Allergies. Flu shot. Home medicines. See below On 11/09/2016 I evaluated him with fiberoptic bronchoscopy because of hemoptysis. He had a cancer that began in the superior segment of the left lower lung and produced near obstruction of the left lower lung distal to the orifice of the superior segment. There is per bronchoscopy specimens grew staph aureus methicillin. He also grew and aspergillosis species and a penicillium species. His biopsy showed small cell carcinoma and earlier this week the patient has received 3 courses of chemotherapy. He was treated with carboplatinum and etoposide. The patient had a pre-existing anemia he has required a blood transfusion. Past history. Small cell carcinoma diagnosed 11/09/2016. This originated in superior segment of the left lower lung and partially occluded distal left lower lung. Past history of arthritis esophageal stricture gastroesophageal reflux disease hiatal hernia, high blood pressure and hyperlipidemia. November 2016 hospitalization for Klebsiella pneumonia and hemoptysis. Family history. Positive arthritis. Social history. Former smoker. Chest x-ray. My interpretation. Heart size is normal. There is an apical fat pad. The right hilum is normal in size with benign calcifications. Right pulmonary artery appears to be normal. There is a right paratracheal lymph node. Right lung field shows hyperinflation compatible with COPD but is otherwise normal. There is at least one old healed rib fracture. Looks like it is his sixth rib. The left hilum is prominent posterior to the hilum there is a mass in an infiltrate. Infiltrate looks like one caused by endobronchial obstruction. No other abnormalities of the left lung are seen. Overall this chest x-ray looks better than the chest x-ray the patient was admitted for last time. Microbiology. No studies available. Lab. Admit white count was 39,500 with 82.2% segs. H&H was 7.1/21.3 and is now 8.2/25.6. Platelet count is 490,000. INR is 1.0. Sodium is low at 133 with a potassium 4.2 and a low-carb chloride at 95. Alkaline Ayse is up at 150 transaminases total bilirubin are normal. Protein and albumin are low at 6.0 and 2.3 respectively. Globulin is 3.7. There are no other labs available. Physical exam. Vital signs. See below. No recorded fevers. Psychiatric. Oriented 3. Poor historian. Seen with his family. Face. Symmetrical. No edema of the lips or tongue. Neck. Symmetrical. No meningismus and no masses. Thyroid was not palpated Lymphatics. No submandibular cervical supraclavicular or epitrochlear adenopathy. Neurologic exam. Cranial nerves are intact with decreased hearing acuity. Long track motor functions intact. Sensory exam was not done in gait was not tested. Chest. Mildly kyphotic and marked moderately hyperinflated. Coarse large airway congestion. No wheezes. Breath sounds were heard in all areas. Heart. No gallop. Abdomen. Obese. Positive bowel sounds. No organs were palpated. and rectal deferred Lower extremities. No obvious deep venous thrombophlebitis. Arterial. Carotids are decreased. Upper extremity pulses are palpable lower extremity pulses are nonpalpable. Venous. Neck and upper extremities are normal. There is chronic venous stasis of the lower extremities. The remainder of the physical exam is negative. Impression. 1. 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 Postchemotherapy. 2. Hemoptysis. This is coming from the area of the cancer. Bleeding was the reason he had a bronchoscope that diagnosed a cancer. Overall the bleeding is better. 3. Obstructive pneumonia. This is also related to the interim endobronchial small cell carcinoma. I suspect this will resolve quickly with antibiotics. 4. Past history tobacco abuse 5. COPD 6. History of hiatal hernia with gastroesophageal reflux disease and esophageal stricture 7. Hyperlipidemia 8. High blood pressure 9. See past history. Plan. 1. Agree with steroids 2. Agree with antibiotic. Previous Klebsiella infection was sensitive to meropenem. BAYRON was low. 3. Inhalation therapy with racemic epinephrine to decrease hemoptysis. 4. Sputum for Gram stain culture and sensitivity 5. We will get follow-up chest x-ray in a few days. 6. At this point I do not think a fiberoptic bronchoscopy would be helpful and it might aggravate the tendency towards bleeding. 7. See orders Home Medications Medication Instructions Recorded Confirmed Type Benazepril [Lotensin] 40 mg PO QAM 11/08/16 12/29/16 History amLODIPine [Norvasc] 10 mg PO QAM 11/08/16 12/29/16 History hydroCHLOROthiazide 25 mg PO QAM 11/08/16 12/29/16 History [Hydrochlorothiazide] Albuterol Sulfate [Ventolin HFA] 2 puff INH TID 12/07/16 12/29/16 History Hydrocodone/Acetaminophen 1 each PO Q4-6H PRN 12/07/16 12/29/16 History [Hydrocodon-Acetaminophen 5-325] Atorvastatin Calcium [Atorvastatin 20 mg PO BEDTIME 12/22/16 12/29/16 History Calcium] Cetirizine HCl [Cetirizine Tab] 10 mg PO QAM 12/22/16 12/29/16 History Ciprofloxacin Tab [Cipro Tab] 500 mg PO Q12HR #20 tablet 12/22/16 12/29/16 Rx Linagliptin [Tradjenta] 5 mg PO QAM 12/22/16 12/29/16 History Meclizine [Antivert] 25 mg PO QID PRN #20 tablet 12/22/16 12/29/16 Rx dilTIAZem HCl [Diltiazem ER (24 120 mg PO QAM 12/22/16 12/29/16 History hr)] Hydrocodone Bit/Homatrop Me-Br 10 ml PO Q4H PRN 12/29/16 12/29/16 History [Hydrocodone-Homatropine Syrup] Allergies Allergy/AdvReac Type Severity Reaction Status Date / Time influenza virus vaccine, Allergy Severe ANAPHYLAXIS Verified 11/09/16 06:57 specific Exam (Pulmonay) H&P - Constitutional Vitals: Period Temp Pulse Resp BP Sys/Carrero Pulse Ox Last 24 Hr 96.4 F-98.7 F 100-119 18-22 100-168/48-78 91-100 Medical,Surgical,& Family Hx - Medical History Cardio: History of: Cardiac Dysrhythmia (tachycardia), Hypertension Neurology: History of: TIA (MONTH OR TWO AGO POSS?) No history of: Seizures HEENT: Comment Only: Dental Problems (SOME TEETH BROKE OFF) Endocrine: No history of: Thyroid Disorder Comment Only: Diabetes Mellitus (NIDDM) (BORDERLINE) Respiratory: History of: Bronchitis, Pneumonia (6 MONTHS AGO), Lung Cancer Gastrointestinal: History of: GERD, GI Problems (STOMACH ULCERS) No history of: Hepatitis, Liver Problems Musculoskeletal: History of: Musculoskeletal Problems (BOTH ANKLES BROKEN, WITH PINS/FIXATOR, "bad knees") No history of: Amputation Other: No history of: Anesthesia Reactions (HARD TO BUT TO SLEEP/ HIGH TOLERANCE FOR PAIN) - Surgical History Cardiac Surgeries: Patient Denies: Cardiac Catheterization Thoracic Surgeries: Patient denies;: Lobectomy Abdominal Surgeries: Patient denies: Abdominal Surgery Reproductive Surgeries: Comment Only: Prostate Surgery (SLOW MOVING CA OVER 20 YRS IN PROSTATE ACCORDING TO , DOES NOT SEE MD) - Family History Family History: Reports;: Family Cancer (Mother- colon ca) - Social History Smoking Status: Former smoker Frequency of Alcohol Use: None Type of Drug Use: None Results - Labs CBC & BMP: 12/30/16 02:53 12/29/16 18:02
[2016-12-30] MEDS: ALBUTEROL 2.5 MG/3 ML NEB RESP TX SCH ×2 (15:33→19:38)
[2016-12-30] MEDS: RACEPINEPHRINE 0.5 ML NEB RESP TX SCH ×2 (15:34→19:34)
[2016-12-30] MEDS: SODIUM CHLORIDE 0.9% 1,000 ML IV SCH (17:16)
[2016-12-30] MEDS: ATORVASTATIN 20 MG TABLET PO SCH (20:59)
[2016-12-30] MEDS: FLUTICASONE 50 MCG NASAL SPRAY 16 GM BOTTLE BOTH NARES SCH (21:49)
[2016-12-30] MEDS: TEMAZEPAM 7.5 MG CAPSULE PO PRN (21:49)
[2016-12-30] MEDS: guaiFENesin 200 MG/10 ML UDCUP PO PRN (22:12)
[2016-12-31] MEDS: methylPREDNISolone SOD SUC 125 MG/2 ML VIAL IV SCH ×3 (05:03→20:55)
[2016-12-31] MEDS: MEROPENEM 1,000 MG in SODIUM CHLORIDE 0.9% 100 ML IV SCH ×3 (05:03→20:58)
[2016-12-31] MEDS: SODIUM CHLORIDE 0.9% 1,000 ML IV SCH ×2 (05:03→16:20)
[2016-12-31] MEDS: RACEPINEPHRINE 0.5 ML NEB RESP TX SCH ×4 (07:36→20:04)
[2016-12-31] MEDS: ALBUTEROL 2.5 MG/3 ML NEB RESP TX SCH ×3 (07:36→20:04)
[2016-12-31] MEDS: sitaGLIPtin 100 MG TABLET PO SCH (08:59)
[2016-12-31] MEDS: BENAZEPRIL 40 MG TABLET PO SCH (08:59)
[2016-12-31] MEDS: amLODIPine 10 MG TABLET PO SCH (08:59)
[2016-12-31] MEDS: DILTIAZEM CD 120 MG CAPSULE PO SCH (08:59)
[2016-12-31] MEDS: HYDROcodone/HOMATROPINE 5 ML UDCUP PO PRN ×2 (08:59→21:02)
[2016-12-31] MEDS: FLUTICASONE 50 MCG NASAL SPRAY 16 GM BOTTLE BOTH NARES SCH ×2 (09:00→21:00)
[2016-12-31] MEDS: CETIRIZINE 10 MG TABLET PO SCH (09:00)
[2016-12-31] MEDS: hydroCHLOROthiazide 25 MG TABLET PO SCH (09:00)
--- NOTE | 2016-12-31 11:00 | Oncology Progress Note ---
Oncology Subjective PN Interval history: was admitted with the following problems: Hemoptysis with some change in his x-ray that I do not think is due to pneumonia but we will follow serial x-rays. I will also consult Dr. Almeida. The chest x-ray today is unchanged from yesterday. However, he indicates that he is breathing better although he continues to produce bloody sputum about a tablespoon at a time. Severe COPD: Anemia: His hemoglobin today is 8.4 today, up from 7.1 yesterday. I expect to transfuse him again tomorrow. Physical examination: General: The patient appears chronically somewhat acutely ill. Overall her condition does not appear to have changed much. ENT: His voice is clear and his trachea is midline. No neck masses. Lungs: I hear wheezes and rhonchi loudest in the left posterior lung field primarily although the sounds are audible throughout the lung mullins. Chest moves symmetrically. Cardiovascular: His heart rhythm is regular without murmur, gallop or rub. There is no jugular venous distention. Neurologic: Cranial nerves II through XII are intact. The no focal neurologic deficits. Skin: No significant rashes or lesions. We will continue current therapy and continue to monitor lab work. Exam - Constitutional Vitals: Period Temp Pulse Resp BP Sys/Carrero Pulse Ox Last 24 Hr 97.6 F-98.7 F 84-123 18-20 103-168/50-78 92-99 Results - Labs CBC & BMP: 12/30/16 02:53 12/29/16 18:02
[2016-12-31 12:05] LABS: Basophils # 0.1 10*3/uL (0.0-0.2); Basophils % 0.6 % (0.0-0.8); Hematocrit 28.5 VOL% (42.0-52.0); Hemoglobin 9.6 GM/DL (14.0-18.0); Immature Granulocytes % 11.1 %; Immature Granulocytes Absolute 2.15 #; Lymphocytes # 0.1 10*3/uL (1.4-4.0); Lymphocytes % 0.6 % (21.2-54.2); Mean Corpuscular HGB Conc 33.7 GM/DL (32-36); Mean Corpuscular Hemoglobin 29 PG (27-34); Mean Corpuscular Volume 87.2 FL (87-102); Monocytes # 0.2 10*3/uL (0.11-0.8); Monocytes % 1.2 % (1.7-12.7); Neutrophils # 16.7 10*3/uL (1.4-7.4); Neutrophils % 86.5 % (38.7-73.9); Platelet Count 459 T/CUMM (130-400); Red Blood Count 3.27 MC/CUMM (3.8-5.5); White Blood Count 19.3 T/CUMM (4-12)
[2016-12-31 12:43] LABS: Albumin 2.4 G/DL (3.4-5.0); Bilirubin,Total 0.5 MG/DL (0.2-1.0); Osmolality,Calculated 280.4 MOS/KG (273-304); Potassium 3.9 MMOL/L (3.5-5.1); Total Protein 6.3 G/DL (6.4-8.3)
--- NOTE | 2016-12-31 13:20 | Pulmonology Progress Note ---
Pulmonary - PN: Subj Interval history: This is a 61-year-old white male whom I saw in pulmonary consultation 9 2016. Impressions were. 1. 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 Postchemotherapy. 2. Hemoptysis. This is coming from the area of the cancer. Bleeding was the reason he had a bronchoscope that diagnosed a cancer. Overall the bleeding is better. 3. Obstructive pneumonia. This is also related to the interim endobronchial small cell carcinoma. I suspect this will resolve quickly with antibiotics. 4. Past history tobacco abuse 5. COPD 6. History of hiatal hernia with gastroesophageal reflux disease and esophageal stricture 7. Hyperlipidemia 8. High blood pressure 9. See past history. 12/31/2016. Today's chest x-ray is comparable to yesterday's chest x-ray. There are no positive cultures. The patient is afebrile. White blood cell count is dropped from 39,000 519,300 with 86.56. Sodium is 133 potassium 3.4 creatinine 0.9 with a BUN of 25. Physical exam. Vital signs. See below. Afebrile Face. Symmetrical. Neck. No meningismus Chest. Coarse large airway congestion. No wheezes Heart. No gallop Abdomen. Nondistended. Positive bowel sounds Extremities nothing to suggest deep venous thrombophlebitis The remainder the physical exam is noncontributory Plan. 12/30/2016 1. Agree with steroids 2. Agree with antibiotic. Previous Klebsiella infection was sensitive to meropenem. BAYRON was low. 3. Inhalation therapy with racemic epinephrine to decrease hemoptysis. 4. Sputum for Gram stain culture and sensitivity 5. We will get follow-up chest x-ray in a few days. 6. At this point I do not think a fiberoptic bronchoscopy would be helpful and it might aggravate the tendency towards bleeding. 7. See orders 12/31/2016. 1. See today's note above 2. Continue present regimen 3. Chest x-ray in the morning. Exam (Progress Note) - Constitutional Vitals: Period Temp Pulse Resp BP Sys/Carrero Pulse Ox Last 24 Hr 97.6 F-98.7 F 78-123 18-20 103-147/50-77 92-99 Results - Labs CBC & BMP: 12/31/16 11:56 12/31/16 11:57
--- NOTE | 2016-12-31 16:27 | XRay Report ---
2 view chest December 31, 2016 Indication: Pneumonia Small cell carcinoma Comparison from previous day at 0810 hours Findings: Left perihilar mass with again consolidation volume loss involving the superior segment of the left lower lobe. Appearance is unchanged. Right lung remains clear. No acute osseous metastases. Impression: No interval change in the appearance of the chest PROCEDURE INTERPRETED AT [facility] DEPARTMENT OF RADIOLOGY Final Report Signed by: Mando Mcfarlane
[2016-12-31 16:36] LABS: Band Neutrophils 15 % (0-10); Lymphocytes 1 % (20-55); Segmented Neutrophils 80 % (50-85); Total Cells Counted 100
[2016-12-31 16:37] LABS: Hypochromasia 2+; Microcytosis 1+; Platelet Estimate Increased
[2016-12-31] MEDS: TEMAZEPAM 7.5 MG CAPSULE PO PRN (20:58)
[2016-12-31] MEDS: ATORVASTATIN 20 MG TABLET PO SCH (20:58)
[2017-01-01] MEDS: methylPREDNISolone SOD SUC 125 MG/2 ML VIAL IV SCH ×5 (00:11→20:47)
[2017-01-01 03:25] LABS: Basophils # 0.1 10*3/uL (0.0-0.2); Basophils % 0.5 % (0.0-0.8); Hematocrit 27.3 VOL% (42.0-52.0); Hemoglobin 8.9 GM/DL (14.0-18.0); Immature Granulocytes % 8.3 %; Lymphocytes # 0.2 10*3/uL (1.4-4.0); Lymphocytes % 1.6 % (21.2-54.2); Mean Corpuscular HGB Conc 32.6 GM/DL (32-36); Mean Corpuscular Hemoglobin 29 PG (27-34); Mean Corpuscular Volume 87.5 FL (87-102); Mean Platelet Volume 9.2 FL (9.6-12.0); Monocytes # 0.3 10*3/uL (0.11-0.8); Monocytes % 2.8 % (1.7-12.7); Neutrophils # 8.4 10*3/uL (1.4-7.4); Neutrophils % 86.8 % (38.7-73.9); Platelet Count 395 T/CUMM (130-400); Red Blood Count 3.12 MC/CUMM (3.8-5.5); Red Cell Distribution Width 16.8 % (9.3-17.3); White Blood Count 9.6 T/CUMM (4-12)
[2017-01-01 03:56] LABS: Albumin 2.3 G/DL (3.4-5.0); Bilirubin,Total 0.7 MG/DL (0.2-1.0); Calcium 8.8 MG/DL (8.5-10.1); Osmolality,Calculated 285.2 MOS/KG (273-304); Potassium 4.3 MMOL/L (3.5-5.1); Total Protein 5.7 G/DL (6.4-8.3)
[2017-01-01] MEDS: MEROPENEM 1,000 MG in SODIUM CHLORIDE 0.9% 100 ML IV SCH ×3 (04:30→20:44)
[2017-01-01] MEDS: HYDROcodone/HOMATROPINE 5 ML UDCUP PO PRN ×2 (04:32→21:41)
[2017-01-01 04:42] LABS: Band Neutrophils 3 % (0-10); Lymphocytes 3 % (20-55); Metamyelocytes 1 %; Myelocytes 2 %; Segmented Neutrophils 90 % (50-85); Total Cells Counted 100
[2017-01-01 04:43] LABS: Anisocytosis 1+; Platelet Estimate Normal
[2017-01-01] MEDS: ALBUTEROL 2.5 MG/3 ML NEB RESP TX SCH ×3 (07:14→19:18)
[2017-01-01] MEDS: RACEPINEPHRINE 0.5 ML NEB RESP TX SCH ×4 (07:14→19:18)
[2017-01-01] MEDS: CETIRIZINE 10 MG TABLET PO SCH (08:49)
[2017-01-01] MEDS: DILTIAZEM CD 120 MG CAPSULE PO SCH (08:49)
[2017-01-01] MEDS: hydroCHLOROthiazide 25 MG TABLET PO SCH (08:49)
[2017-01-01] MEDS: amLODIPine 10 MG TABLET PO SCH (08:50)
[2017-01-01] MEDS: sitaGLIPtin 100 MG TABLET PO SCH (08:50)
[2017-01-01] MEDS: BENAZEPRIL 40 MG TABLET PO SCH (08:50)
[2017-01-01] MEDS: FLUTICASONE 50 MCG NASAL SPRAY 16 GM BOTTLE BOTH NARES SCH ×2 (08:56→20:48)
--- NOTE | 2017-01-01 10:01 | Oncology Progress Note ---
Oncology Subjective PN Interval history: Interval history: was admitted with the following problems: Hemoptysis with some change in his x-ray that I do not think is due to pneumonia but we will follow serial x-rays. Dr. Almeida is following. The chest x-ray today is unchanged from yesterday. However, he indicates that he is breathing better although he continues to produce bloody sputum about a tablespoon at a time. Severe COPD: Postobstructive pneumonia: Gram-positive cocci reported on sputum culture. He is on Merrem and corticosteroids. Will await final identification. Anemia: His Hemoglobin is 8.9, down from 9.6 yesterday. White cell count and platelet count are normal. Malnutrition: He is malnourished with a low serum albumin of 2.3 but this is stable. Diabetes mellitus: Blood glucose this morning is 341. Starting sliding scale. His alkaline phosphatase is down to 119. He has questions about a Mediport catheter. He is not inclined to accept one but I have recommended that he do so. Physical examination: General: He remains chronically and acutely ill and he is using accessory muscles or respiration. Eyes: Normal lids and conjunctivae. ENT: Very poor dentition. No oral exudates. His hearing is normal and his trachea is midline. Lungs: Coarse breath sounds throughout with only faint expiratory wheezing. The expiratory phase of respiration is prolonged. There is no apparent chest wall tenderness. Cardiovascular: His heart rhythm is regular without murmur, gallop or rub. There is no jugular venous distention, clubbing or cyanosis. Musculoskeletal: He appears somewhat weak. He has truncal obesity. Psychiatric: He appears fully oriented to time, place, person and situation. Neurologic: Cranial nerves II through XII are intact and there is no focal neurologic deficit. 1.: Continue to monitor hemoptysis which seems to be slightly improved 2.: Postobstructive pneumonia appears to be improving. 3.: Continue to monitor daily hemoglobin. 4: Sliding scale started because of hyperglycemia. 5: He is post chemotherapy course #2 for small cell carcinoma of the lung and we are monitoring for toxicity. Exam - Constitutional Vitals: Period Temp Pulse Resp BP Sys/Carrero Pulse Ox Last 24 Hr 96.6 F-98.7 F 78-107 18-20 126-167/60-87 92-98 Results - Labs CBC & BMP: 01/01/17 02:25 01/01/17 02:25
--- NOTE | 2017-01-01 10:23 | XRay Report ---
2 view chest January 01, 2017 at 0740 hours Indication: Shortness of breath Comparison images dated December 30, 2016 at 0810 hours Findings: Left perihilar mass and associated lower lobe consolidation with volume loss is essentially unchanged in the interim. Right lung remains well aerated. Cardiomediastinal contours are stable. Impression: No interval change in appearance of the obstructing left perihilar mass and lower lobe consolidation. PROCEDURE INTERPRETED AT [facility] DEPARTMENT OF RADIOLOGY Final Report Signed by: Mando Mcfarlane
[2017-01-01] MEDS: INSULIN REGULAR 100 UNIT/ML SUBCUT SCH ×3 (11:54→20:43)
--- NOTE | 2017-01-01 13:43 | Pulmonology Progress Note ---
Pulmonary - PN: Subj Interval history: This is a 61-year-old white male whom I saw in pulmonary consultation 9 2016. Impressions were. 1. 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 Postchemotherapy. 2. Hemoptysis. This is coming from the area of the cancer. Bleeding was the reason he had a bronchoscope that diagnosed a cancer. Overall the bleeding is better. 3. Obstructive pneumonia. This is also related to the interim endobronchial small cell carcinoma. I suspect this will resolve quickly with antibiotics. 4. Past history tobacco abuse 5. COPD 6. History of hiatal hernia with gastroesophageal reflux disease and esophageal stricture 7. Hyperlipidemia 8. High blood pressure 9. See past history. 12/31/2016. Today's chest x-ray is comparable to yesterday's chest x-ray. There are no positive cultures. The patient is afebrile. White blood cell count is dropped from 39,000 519,300 with 86.56. Sodium is 133 potassium 3.4 creatinine 0.9 with a BUN of 25. 01/01/2017. Patient was was seen along with his daughter and Miley javier RN. He wanted to talk about the pluses and minuses of a Mediport. We did. And I recommended he go through with it. Patient will let his nurse know and will send a consult if he decides to have this. He complained a lot about his IV sites today. His chest x-ray is about the same. There is hyperinflation of the right lung. Heart size is normal. There is an apical fat pad. There is a mass posterior to the left hilum and there is atelectasis ofThe posterior segment of the left lung. This is a stable finding. The patient continues to have some slow hemoptysis. His sputum's are growing a gram-positive cocci. There are no disease or sensitivities available. White count has dropped from 39,000 509,600 with treatment. H&H is 8.9/27.3 and platelets of 395,000. Electrolytes are close to normal. Creatinine is 0.8 with a BUN of 26 Physical exam. Vital signs. See below. Afebrile Face. Symmetrical. Neck. No meningismus Chest. Coarse large airway congestion. No wheezes Heart. No gallop Abdomen. Nondistended. Positive bowel sounds Extremities nothing to suggest deep venous thrombophlebitis The remainder the physical exam is noncontributory Plan. 12/30/2016 1. Agree with steroids 2. Agree with antibiotic. Previous Klebsiella infection was sensitive to meropenem. BAYRON was low. 3. Inhalation therapy with racemic epinephrine to decrease hemoptysis. 4. Sputum for Gram stain culture and sensitivity 5. We will get follow-up chest x-ray in a few days. 6. At this point I do not think a fiberoptic bronchoscopy would be helpful and it might aggravate the tendency towards bleeding. 7. See orders 12/31/2016. 1. See today's note above 2. Continue present regimen 3. Chest x-ray in the morning. 12/31/2016. 1. See today's note above. 2. Chest x-ray stable. 3. Marked decrease in white blood cell count 4. Considering Mediport. Exam (Progress Note) - Constitutional Vitals: Period Temp Pulse Resp BP Sys/Carrero Pulse Ox Last 24 Hr 96.6 F-98.7 F 89-110 16-20 126-167/60-87 92-98 Results - Labs CBC & BMP: 01/01/17 02:25 01/01/17 02:25
[2017-01-01] MEDS: SODIUM CHLORIDE 0.9% 1,000 ML IV SCH (14:41)
[2017-01-01] MEDS: ATORVASTATIN 20 MG TABLET PO SCH (20:45)
[2017-01-01] MEDS: TEMAZEPAM 7.5 MG CAPSULE PO PRN (21:41)
[2017-01-02] MEDS: MEROPENEM 1,000 MG in SODIUM CHLORIDE 0.9% 100 ML IV SCH ×2 (03:46→15:57)
[2017-01-02] MEDS: methylPREDNISolone SOD SUC 125 MG/2 ML VIAL IV SCH ×4 (03:52→21:06)
[2017-01-02] MEDS: SODIUM CHLORIDE 0.9% 1,000 ML IV SCH (03:55)
[2017-01-02 06:51] LABS: Basophils % 0.6 % (0.0-0.8); Hemoglobin 9.5 GM/DL (14.0-18.0); Immature Granulocytes % 2.1 %; Lymphocytes # 0.1 10*3/uL (1.4-4.0); Lymphocytes % 2.3 % (21.2-54.2); Mean Corpuscular HGB Conc 32.8 GM/DL (32-36); Mean Corpuscular Hemoglobin 28 PG (27-34); Mean Corpuscular Volume 86.8 FL (87-102); Mean Platelet Volume 9.6 FL (9.6-12.0); Monocytes # 0.4 10*3/uL (0.11-0.8); Monocytes % 8.3 % (1.7-12.7); Neutrophils # 4.1 10*3/uL (1.4-7.4); Neutrophils % 86.7 % (38.7-73.9); Platelet Count 312 T/CUMM (130-400); Red Blood Count 3.34 MC/CUMM (3.8-5.5); Red Cell Distribution Width 16.6 % (9.3-17.3); White Blood Count 4.7 T/CUMM (4-12)
[2017-01-02] MEDS: RACEPINEPHRINE 0.5 ML NEB RESP TX SCH ×4 (07:15→19:59)
[2017-01-02] MEDS: ALBUTEROL 2.5 MG/3 ML NEB RESP TX SCH ×3 (07:15→19:53)
[2017-01-02 07:17] LABS: Band Neutrophils 4 % (0-10); Hypochromasia 1+; Lymphocytes 3 % (20-55); Metamyelocytes 1 %; Microcytosis 1+; Platelet Estimate Normal; Segmented Neutrophils 80 % (50-85); Total Cells Counted 100
[2017-01-02 07:28] LABS: Albumin 2.3 G/DL (3.4-5.0); Bilirubin,Total 1.1 MG/DL (0.2-1.0); Calcium 9.4 MG/DL (8.5-10.1); Osmolality,Calculated 281.1 MOS/KG (273-304); Potassium 4.3 MMOL/L (3.5-5.1); Total Protein 5.6 G/DL (6.4-8.3)
--- NOTE | 2017-01-02 08:59 | Oncology Progress Note ---
Oncology Subjective PN Interval history: The patient appears stable this morning. Continuing treatment for metastatic small cell lung cancer, hemoptysis, and possible bronchitis. He appears in no acute distress and is comfortable on room air. Pulmonary examination is notable for globally decreased airflow bilaterally. No wheezes are heard. I will expedite his previously scheduled radiotherapy appointment and also have him seen by general surgery ornamental ironworker for Mediport placement at his request. Continuing intravenous antibiotics for the next several days. Exam - Constitutional Vitals: Period Temp Pulse Resp BP Sys/Carrero Pulse Ox Last 24 Hr 96.8 F-97.9 F 94-114 16-20 106-176/62-80 91-99 Results - Labs CBC & BMP: 01/02/17 05:28 01/02/17 05:28
[2017-01-02] MEDS ORDERED: ceFAZolin 2,000 MG in PREMIX 1 EACH IV ONE (09:35)
--- NOTE | 2017-01-02 09:39 | General Surgery Consult Note ---
Assessment and Plan (1) Small cell carcinoma of lung Status: Acute Assessment and plan: I have been consulted for Mediport placement. The patient ate breakfast this morning. I will put him on the schedule for tomorrow and make him n.p.o. after midnight. I have discussed the risks, benefits, and alternatives of the operation, and the expected outcomes have been reviewed. The patient would like to proceed with the operation. This will be scheduled for tomorrow. Current Visit: Yes History of Present Illness Chief complaint: Inadequate venous access History of present illness: Mr. Barlow is a 61 year old male with a left hilar mass lung cancer who was admitted with hemoptysis. He has had difficulty with IV access and a Mediport is been requested by his oncologist. He has never had any Mediport or central lines in the past. Home Medications Medication Instructions Recorded Confirmed Type Benazepril [Lotensin] 40 mg PO QAM 11/08/16 12/29/16 History amLODIPine [Norvasc] 10 mg PO QAM 11/08/16 12/29/16 History hydroCHLOROthiazide 25 mg PO QAM 11/08/16 12/29/16 History [Hydrochlorothiazide] Albuterol Sulfate [Ventolin HFA] 2 puff INH TID 12/07/16 12/29/16 History Hydrocodone/Acetaminophen 1 each PO Q4-6H PRN 12/07/16 12/29/16 History [Hydrocodon-Acetaminophen 5-325] Atorvastatin Calcium [Atorvastatin 20 mg PO BEDTIME 12/22/16 12/29/16 History Calcium] Cetirizine HCl [Cetirizine Tab] 10 mg PO QAM 12/22/16 12/29/16 History Ciprofloxacin Tab [Cipro Tab] 500 mg PO Q12HR #20 tablet 12/22/16 12/29/16 Rx Linagliptin [Tradjenta] 5 mg PO QAM 12/22/16 12/29/16 History Meclizine [Antivert] 25 mg PO QID PRN #20 tablet 12/22/16 12/29/16 Rx dilTIAZem HCl [Diltiazem ER (24 120 mg PO QAM 12/22/16 12/29/16 History hr)] Hydrocodone Bit/Homatrop Me-Br 10 ml PO Q4H PRN 12/29/16 12/29/16 History [Hydrocodone-Homatropine Syrup] Allergies Allergy/AdvReac Type Severity Reaction Status Date / Time influenza virus vaccine, Allergy Severe ANAPHYLAXIS Verified 11/09/16 06:57 specific Medical,Surgical,& Family Hx - Medical History Cardio: History of: Cardiac Dysrhythmia (tachycardia), Hypertension Neurology: History of: TIA (MONTH OR TWO AGO POSS?) No history of: Seizures HEENT: Comment Only: Dental Problems (SOME TEETH BROKE OFF) Endocrine: No history of: Thyroid Disorder Comment Only: Diabetes Mellitus (NIDDM) (BORDERLINE) Respiratory: History of: Bronchitis, Pneumonia (6 MONTHS AGO), Lung Cancer Gastrointestinal: History of: GERD, GI Problems (STOMACH ULCERS) No history of: Hepatitis, Liver Problems Musculoskeletal: History of: Musculoskeletal Problems (BOTH ANKLES BROKEN, WITH PINS/FIXATOR, "bad knees") No history of: Amputation Other: No history of: Anesthesia Reactions (HARD TO BUT TO SLEEP/ HIGH TOLERANCE FOR PAIN) - Surgical History Cardiac Surgeries: Patient Denies: Cardiac Catheterization Thoracic Surgeries: Patient denies;: Lobectomy Abdominal Surgeries: Patient denies: Abdominal Surgery Reproductive Surgeries: Comment Only: Prostate Surgery (SLOW MOVING CA OVER 20 YRS IN PROSTATE ACCORDING TO , DOES NOT SEE MD) - Family History Family History: Reports;: Family Cancer (Mother- colon ca) - Social History Smoking Status: Former smoker Frequency of Alcohol Use: None Type of Drug Use: None - Constitutional Constitutional: Present: as per HPI - EENT Nose, mouth and throat: Present: as per HPI - Cardiovascular Cardiovascular: Present: as per HPI - Respiratory Respiratory: Present: as per HPI - Gastrointestinal Gastrointestinal: Present: as per HPI - Genitourinary Genitourinary: Present: as per HPI - Musculoskeletal Musculoskeletal: Present: as per HPI - Neurological Neurological: Present: as per HPI - Endocrine Endocrine: Present: as per HPI Hematologic/Lymphatic: Present: as per HPI Exam - Constitutional Vitals: Period Temp Pulse Resp BP Sys/Carrero Pulse Ox Last 24 Hr 96.8 F-97.9 F 94-114 16-20 106-176/62-80 91-99 General appearance: no acute distress, over weight - Head Head exam: Present: normal inspection, normocephalic - Eye Eye exam: Present: EOMI Pupils: Present: BECKY - ENT ENT exam: Present: normal exam Mouth exam: Present: normal external inspection, normal voice - Neck Neck exam: Present: normal inspection, trachea midline - Respiratory Respiratory exam: Present: clear to auscultation bilaterally. Absent: accessory muscle use, chest wall tenderness - Cardiovascular Cardiovascular exam: Present: RRR. Absent: systolic murmur, tachycardia - GI/Abdominal GI/Abdominal exam: Present: soft. Absent: tenderness, rebound - Extremities Exam Extremities exam: Present: normal inspection, normal capillary refill - Back Exam Back exam: Present: normal inspection - Neurological Exam Neurological exam: Present: alert, oriented X3 Speech: Present: normal - Skin Skin exam: Present: normal color, warm Results - Labs CBC & BMP: 01/02/17 05:28 01/02/17 05:28 - Diagnostic Findings Procedure: Chest x-ray: report reviewed by me
[2017-01-02] MEDS: INSULIN REGULAR 100 UNIT/ML SUBCUT SCH ×4 (10:02→23:42)
[2017-01-02] MEDS: DILTIAZEM CD 120 MG CAPSULE PO SCH (10:03)
[2017-01-02] MEDS: amLODIPine 10 MG TABLET PO SCH (10:04)
[2017-01-02] MEDS: BENAZEPRIL 40 MG TABLET PO SCH (10:04)
[2017-01-02] MEDS: CETIRIZINE 10 MG TABLET PO SCH (10:04)
[2017-01-02] MEDS: hydroCHLOROthiazide 25 MG TABLET PO SCH (10:04)
[2017-01-02] MEDS: sitaGLIPtin 100 MG TABLET PO SCH (10:04)
[2017-01-02] MEDS: FLUTICASONE 50 MCG NASAL SPRAY 16 GM BOTTLE BOTH NARES SCH ×2 (10:05→23:38)
--- NOTE | 2017-01-02 13:56 | Pulmonology Progress Note ---
Pulmonary - PN: Subj Interval history: Marquise Hernandez, [facility]-, acting as scribe for Dr. Cordell Almeida This is a 61-year-old white male who we saw in pulmonary consultation on 2016. At that time, our impressions were: 1. 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 Postchemotherapy. 2. Hemoptysis. This is coming from the area of the cancer. Bleeding was the reason he had a bronchoscope that diagnosed a cancer. Overall the bleeding is better. 3. Obstructive pneumonia. This is also related to the interim endobronchial small cell carcinoma. I suspect this will resolve quickly with antibiotics. 4. Past history tobacco abuse 5. COPD 6. History of hiatal hernia with gastroesophageal reflux disease and esophageal stricture 7. Hyperlipidemia 8. High blood pressure 9. See past history. 12/31/2016. Today's chest x-ray is comparable to yesterday's chest x-ray. There are no positive cultures. The patient is afebrile. White blood cell count is dropped from 39,000 519,300 with 86.56. Sodium is 133 potassium 3.4 creatinine 0.9 with a BUN of 25. 01/01/2017. Patient was was seen along with his daughter and Miley javier RN. He wanted to talk about the pluses and minuses of a Mediport. We did. And I recommended he go through with it. Patient will let his nurse know and will send a consult if he decides to have this. He complained a lot about his IV sites today. His chest x-ray is about the same. There is hyperinflation of the right lung. Heart size is normal. There is an apical fat pad. There is a mass posterior to the left hilum and there is atelectasis of the posterior segment of the left lung. This is a stable finding. The patient continues to have some slow hemoptysis. His sputum's are growing a gram-positive cocci. There are no disease or sensitivities available. White count has dropped from 39,000 509,600 with treatment. H&H is 8.9/27.3 and platelets of 395,000. Electrolytes are close to normal. Creatinine is 0.8 with a BUN of 26 01/02/2017. The patient was seen today along with his . The patient has been seen in surgical consultation by Dr. Hendrix. He is tentatively plan for Mediport placement tomorrow. His sputum has grown MRSA. We have started vancomycin and have asked pharmacology to dose and manage this. We have asked the nursing staff to relate this information to Dr. Hendrix in case he needs to rearrange the timing of his Mediport placement. We have also discussed this with the patient and his . Blood cultures are growing no organisms. Overall, the patient looks markedly improved. Medications have been reviewed. Vancomycin was started today as above. Labs been reviewed. White count is 4700 with 86.7% segs; H&H 9.5/29.0; platelet count 312,000; creatinine 0.0, BUN 22 sodium 135, potassium 4.3; total bilirubin 1.10, AST 7, ALT 20, alkaline phosphatase 112, calcium 9.4, albumin 2.3, total protein 5.6 Exam (Progress Note) - Constitutional Vitals: Period Temp Pulse Resp BP Sys/Carrero Pulse Ox Last 24 Hr 96.8 F-97.9 F 94-116 18-20 110-176/62-80 90-99 Exam: Wheeze free but with coarse large airway congestion Heart no gallop Abdomen is nontender and nondistended; bowel sounds are positive 4 Extremities with nothing to suggest acute deep venous thrombophlebitis Psychiatric oriented 3 Neurologic long-term motor function is intact Plan: Start vancomycin 375 mg IV every 8 hours, but will consult pharmacology to dose and manage. Agree with Mediport placement. Nursing staff to inform Dr. Hendrix of the MRSA in the sputum. Continue other present treatment. See orders. Results - Labs CBC & BMP: 01/02/17 05:28 01/02/17 05:28
--- NOTE | 2017-01-02 16:25 | CT Report ---
Exam: CT treatment planning Date: 01/02/2017 12:00 AM Comparison: None Indication: Lung cancer Total DLP: 749 mGy*cm Technical: Noncontrast CT imaging of the chest was performed with fiducial markers for treatment planning purposes. Findings: There is a large area of consolidation and/or focal mass within the medial aspect of the left lower lobe. Enlarged subcarinal and bilateral hilar lymph nodes are also noted most compatible with metastatic adenopathy. The upper lungs are predominantly clear. Central airways are patent with noted narrowing at the subsegmental level within the left lower lobe due to mass effect from the adjacent mass. Heart and great vessels appear grossly unremarkable for noncontrast technique. There is no significant right axillary adenopathy. There are several enlarged cervical chain, supraclavicular fossa and left axillary lymph nodes which also may represent metastatic adenopathy. In the upper abdomen, there is no acute abnormality identified. Enlargement of the left adrenal gland with a focal nodule measuring up to 2.6 cm may represent a metastatic lesion. No definite acute osseous abnormalities are identified. There is a focal area of enlargement and probable pathologic fracture with an underlying mass lesion at the eighth rib posteriorly on the right. No definite additional suspicious osseous lesions are identified. Impression: 1. Findings are presumed appropriate for treatment planning purposes. No acute abnormality is identified. 2. Large area of consolidation and/or mass lesion within the medial left lung base is most compatible with given history of lung cancer. 3. Bilateral hilar, mediastinal, left axillary and supraclavicular/cervical node adenopathy is most suspicious for multifocal/widespread metastatic disease. There is also suggestion of a probable pathologic fracture at the posterior right eighth rib. PROCEDURE INTERPRETED AT [facility] DEPARTMENT OF RADIOLOGY Final Report Signed by: Felice Coulter
[2017-01-02] MEDS: VANCOMYCIN INJ 1,500 MG in SODIUM CHLORIDE 0.9% 500 ML IV SCH (17:12)
[2017-01-02] MEDS: TEMAZEPAM 7.5 MG CAPSULE PO PRN (21:06)
[2017-01-02] MEDS: ATORVASTATIN 20 MG TABLET PO SCH (21:06)
[2017-01-02] MEDS: HYDROcodone/HOMATROPINE 5 ML UDCUP PO PRN (21:07)
[2017-01-03] MEDS: MEROPENEM 1,000 MG in SODIUM CHLORIDE 0.9% 100 ML IV SCH ×3 (01:10→17:48)
[2017-01-03] MEDS: methylPREDNISolone SOD SUC 125 MG/2 ML VIAL IV SCH ×4 (03:11→21:41)
[2017-01-03] MEDS: VANCOMYCIN INJ 1,500 MG in SODIUM CHLORIDE 0.9% 500 ML IV SCH ×3 (03:12→18:26)
[2017-01-03] MEDS ORDERED: FAMOTIDINE 20 MG TABLET PO ONE (06:00)
[2017-01-03] MEDS ORDERED: DIAZEPAM 5 MG TABLET PO ONE (06:00)
[2017-01-03] MEDS ORDERED: ceFAZolin 2,000 MG in PREMIX 1 EACH IV ONE (07:00)
[2017-01-03 07:19] LABS: Basophils % 0.3 % (0.0-0.8); Hematocrit 26.9 VOL% (42.0-52.0); Hemoglobin 9.1 GM/DL (14.0-18.0); Immature Granulocytes % 1.9 %; Immature Granulocytes Absolute 0.07 #; Lymphocytes # 0.2 10*3/uL (1.4-4.0); Lymphocytes % 4.4 % (21.2-54.2); Mean Corpuscular HGB Conc 33.8 GM/DL (32-36); Mean Corpuscular Hemoglobin 29 PG (27-34); Mean Corpuscular Volume 86.8 FL (87-102); Mean Platelet Volume 9.5 FL (9.6-12.0); Monocytes # 0.5 10*3/uL (0.11-0.8); Monocytes % 12.4 % (1.7-12.7); Neutrophils # 2.9 10*3/uL (1.4-7.4); Platelet Count 253 T/CUMM (130-400); Red Cell Distribution Width 16.4 % (9.3-17.3); White Blood Count 3.6 T/CUMM (4-12)
[2017-01-03] MEDS: INSULIN REGULAR 100 UNIT/ML SUBCUT SCH ×4 (07:30→21:41)
[2017-01-03 07:48] LABS: Albumin 2.1 G/DL (3.4-5.0); Bilirubin,Total 0.9 MG/DL (0.2-1.0); Calcium 8.7 MG/DL (8.5-10.1); Potassium 3.6 MMOL/L (3.5-5.1); Total Protein 5.1 G/DL (6.4-8.3)
[2017-01-03 07:53] LABS: Band Neutrophils 6 % (0-10); Giant Platelets Few; Hypochromasia 1+; Lymphocytes 6 % (20-55); Platelet Estimate Adequate; Segmented Neutrophils 77 % (50-85); Total Cells Counted 100
[2017-01-03] MEDS: ALBUTEROL 2.5 MG/3 ML NEB RESP TX SCH ×3 (07:53→19:26)
[2017-01-03 07:54] LABS: Microcytosis 1+
[2017-01-03] MEDS: RACEPINEPHRINE 0.5 ML NEB RESP TX SCH ×4 (07:55→19:26)
[2017-01-03] MEDS ORDERED: LIDOCAINE 1%/EPI INJ 20 ML VIAL ONE (08:31)
[2017-01-03] MEDS ORDERED: BUPIVACAINE MPF 0.25% /EPI 30 ML VIAL ONE (08:31)
[2017-01-03] MEDS ORDERED: HEPARIN 5,000 UNIT/1 ML VIAL ONE (08:31)
--- NOTE | 2017-01-03 08:43 | Oncology Progress Note ---
Oncology Subjective PN Interval history: Patient had already left the floor this morning for Mediport placement. He is expected to consult with radiotherapy later today. Exam - Constitutional Vitals: Period Temp Pulse Resp BP Sys/Carrero Pulse Ox Last 24 Hr 97.6 F-97.8 F 89-116 18-20 107-165/67-80 90-98 Results - Labs CBC & BMP: 01/03/17 06:58 01/03/17 06:58
[2017-01-03] MEDS ORDERED: PROPOFOL 200 MG/20 ML VIAL IV ONE (08:50)
[2017-01-03] MEDS ORDERED: TISSUE ADHESIVE 1 EACH APPLICATOR TOP ONE (09:44)
--- NOTE | 2017-01-03 09:53 | Operative Note ---
Date of procedure: 01/03/17 Pre-op diagnosis: Need for chemotherapy access Post-op diagnosis: same Procedure: Preoperative diagnosis Need for central access for chemotherapy Postoperative diagnosis Same Procedures performed Right internal jugular vein Mediport placement Fluoroscopic guidance and interpretation of images Ultrasound guidance and interpretation of images Findings The cephalic vein was not identified in the deltopectoral fat pad. I was unable to access the subclavian vein with multiple attempts and ultrasound guidance was used to identify the internal jugular vein where a catheter was tunneled in place with its tip in the cavoatrial junction under fluoroscopic guidance. Complications None apparent Specimen None Anesthesia Monitored with local Blood loss 10 mL Indications Need for central venous access for chemotherapy administration Description of procedure The patient was taken to the operating room and transferred to the operating table in the supine position. Pressure points were padded and SCDs were placed to bilateral lower extremities. Monitored anesthesia was administered. The risks, benefits, and alternatives of the operation were discussed in detail with the patient and the expected outcomes were reviewed. All the patient's questions were answered and she elects to proceed with the operation. The chest and neck was prepped bilaterally with chlorhexidine and sterile drapes were placed. Preoperative antibiotics were administered, and a timeout was performed. The right deltopectoral groove was palpated and local anesthetic was administered. An incision was then made and the Bovie electrocautery was used to dissected down to the pectoralis muscle and the deltopectoral fat pad is identified. The fat plane was dissected until the deltopectoral fat pad was completely isolated and there was an artery here and the fat pad but no vein was found. The subclavian access was attempted using anatomic landmarks 3 times with no return of venous blood and this was aborted. Ultrasound was then used to identify the right internal jugular vein which was compressible. Local anesthetic was administered over this. Ultrasound guidance was used to access the internal jugular vein with a needle and a wire was placed after nonpulsatile venous blood return was obtained. Fluoroscopy revealed venous placement of the wire. Incision was made alongside the wire and the catheter was tunneled from the Mediport pocket to the neck incision. A dilator and peel- away sheath was placed over the wire the dilator and wire was removed. Catheter was placed through the peel-away sheath. The catheter threaded easily and fluoroscopy was used to position the tip of the catheter in the cavoatrial junction. The Mediport pocket was then created in the subcutaneous tissues just below the dermis, anterior chest wall below the deltopectoral groove incision. Local anesthetic was administered prior to making this flap. Mediport was then secured to the catheter with the flange. Mediport was accessed and returned blood easily and was flushed with heparin. Mediport was sewn into the pocket with 3-0 Vicryl sutures. A final fluoroscopic picture revealed good positioning of the tip of the catheter in the cavoatrial junction with no apparent complications. The skin incision was closed with 4-0 Monocryl subcuticular sutures and dressed with sterile skin glue. The patient was awakened from anesthesia and transferred to recovery. Postoperative plan Follow-up as needed Implants: pa Anesthesia: MAC, local Surgeon / Physician: Walter Hendrix Estimated blood loss: minimal Specimens: none sent Condition: stable Disposition: PACU Results - Labs CBC & BMP: 01/03/17 06:58 01/03/17 06:58 Discharge Plan - Discharge Medications No Action Benazepril [Lotensin] 40 mg PO QAM Albuterol Sulfate [Ventolin HFA] 2 puff INH TID Hydrocodone/Acetaminophen [Hydrocodon-Acetaminophen 5-325] 1 each PO Q4-6H PRN PRN Reason: Pain Atorvastatin Calcium [Atorvastatin Calcium] 20 mg PO BEDTIME Cetirizine HCl [Cetirizine Tab] 10 mg PO QAM dilTIAZem HCl [Diltiazem ER (24 hr)] 120 mg PO QAM Linagliptin [Tradjenta] 5 mg PO QAM Meclizine [Antivert] 25 mg PO QID PRN #20 tablet PRN Reason: Dizziness hydroCHLOROthiazide [Hydrochlorothiazide] 25 mg PO QAM amLODIPine [Norvasc] 10 mg PO QAM Ciprofloxacin Tab [Cipro Tab] 500 mg PO Q12HR #20 tablet Hydrocodone Bit/Homatrop Me-Br [Hydrocodone-Homatropine Syrup] 10 ml PO Q4H PRN PRN Reason: Cough - Follow Up or Referral - Forms/Instructions
--- NOTE | 2017-01-03 10:01 | Anesthesia Post-Op ---
Anesthesia Post OP - Post Ansesthetic Evaluation Patient seen in post op: Yes Resp: within normal limits CV: within normal limits Mental: within normal limits Temp: within normal limits [id number]: within normal limits Nausea and Vomiting: within normal limits Pain: within normal limits
[2017-01-03] MEDS ORDERED: MIDAZOLAM 2 MG/2 ML VIAL ONE (10:02)
[2017-01-03] MEDS ORDERED: SODIUM CHLORIDE 0.9% 200 ML IV ONE (10:02)
[2017-01-03] MEDS ORDERED: fentaNYL 100 MCG/2 ML VIAL ONE (10:02)
--- NOTE | 2017-01-03 11:12 | Pulmonology Progress Note ---
Pulmonary - PN: Subj Interval history: Marquise Hernandez, [facility]-, acting as scribe for Dr. Cordell Almeida This is a 61-year-old white male who we saw in pulmonary consultation on 2016. At that time, our impressions were: 1. 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 Postchemotherapy. 2. Hemoptysis. This is coming from the area of the cancer. Bleeding was the reason he had a bronchoscope that diagnosed a cancer. Overall the bleeding is better. 3. Obstructive pneumonia. This is also related to the interim endobronchial small cell carcinoma. I suspect this will resolve quickly with antibiotics. 4. Past history tobacco abuse 5. COPD 6. History of hiatal hernia with gastroesophageal reflux disease and esophageal stricture 7. Hyperlipidemia 8. High blood pressure 9. See past history. 12/31/2016. Today's chest x-ray is comparable to yesterday's chest x-ray. There are no positive cultures. The patient is afebrile. White blood cell count is dropped from 39,000 519,300 with 86.56. Sodium is 133 potassium 3.4 creatinine 0.9 with a BUN of 25. 01/01/2017. Patient was was seen along with his daughter and Miley javier RN. He wanted to talk about the pluses and minuses of a Mediport. We did. And I recommended he go through with it. Patient will let his nurse know and will send a consult if he decides to have this. He complained a lot about his IV sites today. His chest x-ray is about the same. There is hyperinflation of the right lung. Heart size is normal. There is an apical fat pad. There is a mass posterior to the left hilum and there is atelectasis of the posterior segment of the left lung. This is a stable finding. The patient continues to have some slow hemoptysis. His sputum's are growing a gram-positive cocci. There are no disease or sensitivities available. White count has dropped from 39,000 509,600 with treatment. H&H is 8.9/27.3 and platelets of 395,000. Electrolytes are close to normal. Creatinine is 0.8 with a BUN of 26 01/02/2017. The patient was seen today along with his . The patient has been seen in surgical consultation by Dr. Hendrix. He is tentatively plan for Mediport placement tomorrow. His sputum has grown MRSA. We have started vancomycin and have asked pharmacology to dose and manage this. We have asked the nursing staff to relate this information to Dr. Hendrix in case he needs to rearrange the timing of his Mediport placement. We have also discussed this with the patient and his . Blood cultures are growing no organisms. Overall, the patient looks markedly improved. Medications have been reviewed. Vancomycin was started today as above. Labs been reviewed. White count is 4700 with 86.7% segs; H&H 9.5/29.0; platelet count 312,000; creatinine 0.0, BUN 22 sodium 135, potassium 4.3; total bilirubin 1.10, AST 7, ALT 20, alkaline phosphatase 112, calcium 9.4, albumin 2.3, total protein 5.6 01/03/2017. The patient was off the floor earlier this morning for Mediport placement. Per night yesterday, sputum grew MRSA and he was started on vancomycin. We consulted pharmacology for dosing and management of this. Medications have been reviewed. We made no changes today. Labs been reviewed. White count is 3600 with 81.0% segs; H&H 9.1/26.9; platelet count 253,000; creatinine 0.70, BUN 21, electrolytes are normal; liver function tests within normal limits; calcium 8.7, albumin 2.1, total protein 5.1 Exam (Progress Note) - Constitutional Vitals: Period Temp Pulse Resp BP Sys/Carrero Pulse Ox Last 24 Hr 97.1 F-97.8 F 83-116 16-20 107-157/67-90 90-98 Exam: Plan: Continue present treatment. We will follow-up with the patient later on hopefully today. Results - Labs CBC & BMP: 01/03/17 06:58 01/03/17 06:58
--- NOTE | 2017-01-03 13:38 | XRay Report ---
Portable chest January 03, 2017 1011 hours Indication: Pneumonia Comparison images dated January 01, 2017 Findings: Right-sided Chemo-Port has been placed in satisfactory position. Cardiomediastinal contours are stable. Left perihilar density is unchanged in appearance allowing for differences in technique and patient positioning. No acute osseous abnormalities. Impression: Uncomplicated right chemotherapy port placement. PROCEDURE INTERPRETED AT [facility] DEPARTMENT OF RADIOLOGY Final Report Signed by: Mando Mcfarlane
[2017-01-03] MEDS: sitaGLIPtin 100 MG TABLET PO SCH (13:49)
[2017-01-03] MEDS: amLODIPine 10 MG TABLET PO SCH (13:49)
[2017-01-03] MEDS: HYDROcodone/HOMATROPINE 5 ML UDCUP PO PRN ×2 (13:49→17:59)
[2017-01-03] MEDS: hydroCHLOROthiazide 25 MG TABLET PO SCH (13:49)
[2017-01-03] MEDS: BENAZEPRIL 40 MG TABLET PO SCH (13:49)
[2017-01-03] MEDS: FLUTICASONE 50 MCG NASAL SPRAY 16 GM BOTTLE BOTH NARES SCH ×2 (13:50→21:40)
[2017-01-03] MEDS: CETIRIZINE 10 MG TABLET PO SCH (13:50)
[2017-01-03] MEDS: DILTIAZEM CD 120 MG CAPSULE PO SCH (13:50)
[2017-01-03] MEDS: ATORVASTATIN 20 MG TABLET PO SCH (21:40)
[2017-01-03] MEDS: TEMAZEPAM 7.5 MG CAPSULE PO PRN (21:45)
[2017-01-04] MEDS: MEROPENEM 1,000 MG in SODIUM CHLORIDE 0.9% 100 ML IV SCH ×3 (00:08→17:13)
[2017-01-04] MEDS: methylPREDNISolone SOD SUC 125 MG/2 ML VIAL IV SCH ×4 (03:54→20:27)
[2017-01-04 05:41] LABS: Hemoglobin 9.3 GM/DL (14.0-18.0); Immature Granulocytes % 1.2 %; Immature Granulocytes Absolute 0.05 #; Lymphocytes # 0.2 10*3/uL (1.4-4.0); Lymphocytes % 4.6 % (21.2-54.2); Mean Corpuscular HGB Conc 33.2 GM/DL (32-36); Mean Corpuscular Hemoglobin 29 PG (27-34); Mean Corpuscular Volume 88.1 FL (87-102); Monocytes # 0.5 10*3/uL (0.11-0.8); Monocytes % 12.3 % (1.7-12.7); NRBC # 0.02 10*3/uL; Neutrophils # 3.5 10*3/uL (1.4-7.4); Neutrophils % 81.9 % (38.7-73.9); Platelet Count 217 T/CUMM (130-400); Red Blood Count 3.18 MC/CUMM (3.8-5.5); Red Cell Distribution Width 16.1 % (9.3-17.3); White Blood Count 4.3 T/CUMM (4-12)
[2017-01-04 06:00] LABS: Albumin 2.1 G/DL (3.4-5.0); Bilirubin,Total 0.8 MG/DL (0.2-1.0); Calcium 8.3 MG/DL (8.5-10.1); Total Protein 4.9 G/DL (6.4-8.3)
[2017-01-04 06:01] LABS: Potassium 3.8 MMOL/L (3.5-5.1)
[2017-01-04 06:07] LABS: Band Neutrophils 10 % (0-10); Giant Platelets Few; Hypochromasia 1+; Lymphocytes 6 % (20-55); Ovalocytes Slight; Platelet Estimate Adequate; Segmented Neutrophils 76 % (50-85); Total Cells Counted 100
[2017-01-04] MEDS: VANCOMYCIN INJ 1,500 MG in SODIUM CHLORIDE 0.9% 500 ML IV SCH ×3 (06:45→22:12)
[2017-01-04] MEDS: RACEPINEPHRINE 0.5 ML NEB RESP TX SCH ×4 (07:15→19:32)
[2017-01-04] MEDS: ALBUTEROL 2.5 MG/3 ML NEB RESP TX SCH ×3 (07:15→19:32)
--- NOTE | 2017-01-04 08:14 | Oncology Progress Note ---
Oncology Subjective PN Interval history: Patient remains stable this morning he is comfortable on room air. His lungs have slight increased to the expiratory phase but no wheezes or crackles are heard. He continues with a stable amount of daily hemoptysis. We are anticipating his first radiotherapy treatment today. Mediport placed in the right upper chest uneventfully yesterday. We have discussed discharge to home tomorrow and the patient will continue with radiotherapy as an outpatient next week. Chemotherapy is scheduled for January 22 or thereabouts. His labs are acceptable today. I will likely give po antibiotic coverage at the time of discharge. Exam - Constitutional Vitals: Period Temp Pulse Resp BP Sys/Carrero Pulse Ox Last 24 Hr 95.1 F-98.0 F 83-115 16-21 121-157/62-90 90-99 Results - Labs CBC & BMP: 01/04/17 04:00 01/04/17 04:00
[2017-01-04] MEDS: CETIRIZINE 10 MG TABLET PO SCH (08:50)
[2017-01-04] MEDS: amLODIPine 10 MG TABLET PO SCH (08:50)
[2017-01-04] MEDS: BENAZEPRIL 40 MG TABLET PO SCH (08:50)
[2017-01-04] MEDS: hydroCHLOROthiazide 25 MG TABLET PO SCH (08:50)
[2017-01-04] MEDS: sitaGLIPtin 100 MG TABLET PO SCH (08:50)
[2017-01-04] MEDS: HYDROcodone/HOMATROPINE 5 ML UDCUP PO PRN ×2 (08:50→17:14)
[2017-01-04] MEDS: DILTIAZEM CD 120 MG CAPSULE PO SCH (08:50)
[2017-01-04] MEDS: INSULIN REGULAR 100 UNIT/ML SUBCUT SCH ×4 (08:51→20:25)
[2017-01-04] MEDS: FLUTICASONE 50 MCG NASAL SPRAY 16 GM BOTTLE BOTH NARES SCH ×2 (08:51→20:28)
--- NOTE | 2017-01-04 11:22 | Physician Query Form ---
CLICK EDIT DOCUMENT TO SELECT QUERY ANSWER --> OK --> SIGN Trang Simon RN [employer]ist W) [phone] (f) [phone] [email or web address]: Make your selection(s) from the choices in EACH section by typing an "x" and enter comments in the comment section. Please use your independent medical judgment in providing your response. This request does not imply that any particular answer is desired or expected. CLINICAL INDICATORS: (Providers should not edit this section) Pt. admitted with stage IV small cell lung cancer with hemoptysis. Based on documentation of "Postobstructive pneumonia: Gram-positive cocci reported on sputum culture. He is on Merrem and corticosteroids" and " His sputum has grown MRSA. We have started vancomycin". Community Acquired and Healthcare Acquired are both unspecified terms and require further specificity. Based on the above, could you please clarify further specificity regarding the type of pneumonia you are treating (even if specific organism may not be known) ? (x ) MRSA pneumonia ( ) Gram positive pneumonia ( ) Bacterial pneumonia due to, please specify organism (if known): ( ) Radiation Pneumonitis ( ) Pneumonia due to, please specify: ( ) Clinically unable to determine ( ) Other, please specify: COMMENTS: PLEASE ALSO DOCUMENT RESPONSE IN PROGRESS NOTES AND/OR DISCHARGE SUMMARY Use of terms such as suspected, likely, or probable (associated with a specific diagnosis that is being evaluated, monitored, or treated as if it exists) are acceptable and can be restated in the discharge summary if not ruled out. MTDD
--- NOTE | 2017-01-04 12:21 | Pulmonology Progress Note ---
Pulmonary - PN: Subj Interval history: Marquise Hernandez, [facility]-, acting as scribe for Dr. Cordell Almeida This is a 61-year-old white male who we saw in pulmonary consultation on 2016. At that time, our impressions were: 1. 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 Postchemotherapy. 2. Hemoptysis. This is coming from the area of the cancer. Bleeding was the reason he had a bronchoscope that diagnosed a cancer. Overall the bleeding is better. 3. Obstructive pneumonia. This is also related to the interim endobronchial small cell carcinoma. I suspect this will resolve quickly with antibiotics. 4. Past history tobacco abuse 5. COPD 6. History of hiatal hernia with gastroesophageal reflux disease and esophageal stricture 7. Hyperlipidemia 8. High blood pressure 9. See past history. 12/31/2016. Today's chest x-ray is comparable to yesterday's chest x-ray. There are no positive cultures. The patient is afebrile. White blood cell count is dropped from 39,000 519,300 with 86.56. Sodium is 133 potassium 3.4 creatinine 0.9 with a BUN of 25. 01/01/2017. Patient was was seen along with his daughter and Miley javier RN. He wanted to talk about the pluses and minuses of a Mediport. We did. And I recommended he go through with it. Patient will let his nurse know and will send a consult if he decides to have this. He complained a lot about his IV sites today. His chest x-ray is about the same. There is hyperinflation of the right lung. Heart size is normal. There is an apical fat pad. There is a mass posterior to the left hilum and there is atelectasis of the posterior segment of the left lung. This is a stable finding. The patient continues to have some slow hemoptysis. His sputum's are growing a gram-positive cocci. There are no disease or sensitivities available. White count has dropped from 39,000 509,600 with treatment. H&H is 8.9/27.3 and platelets of 395,000. Electrolytes are close to normal. Creatinine is 0.8 with a BUN of 26 01/02/2017. The patient was seen today along with his . The patient has been seen in surgical consultation by Dr. Hendrix. He is tentatively plan for Mediport placement tomorrow. His sputum has grown MRSA. We have started vancomycin and have asked pharmacology to dose and manage this. We have asked the nursing staff to relate this information to Dr. Hendrix in case he needs to rearrange the timing of his Mediport placement. We have also discussed this with the patient and his . Blood cultures are growing no organisms. Overall, the patient looks markedly improved. Medications have been reviewed. Vancomycin was started today as above. Labs been reviewed. White count is 4700 with 86.7% segs; H&H 9.5/29.0; platelet count 312,000; creatinine 0.0, BUN 22 sodium 135, potassium 4.3; total bilirubin 1.10, AST 7, ALT 20, alkaline phosphatase 112, calcium 9.4, albumin 2.3, total protein 5.6 01/03/2017. The patient was off the floor earlier this morning for Mediport placement. Per night yesterday, sputum grew MRSA and he was started on vancomycin. We consulted pharmacology for dosing and management of this. Medications have been reviewed. We made no changes today. Labs been reviewed. White count is 3600 with 81.0% segs; H&H 9.1/26.9; platelet count 253,000; creatinine 0.70, BUN 21, electrolytes are normal; liver function tests within normal limits; calcium 8.7, albumin 2.1, total protein 5.1 01/04/2017. The patient was seen today along with his . Patient had a Mediport placed yesterday. This was uneventful. He is doing well this morning. He continues to have scant amount of hemoptysis daily. He continues on racemic epinephrine. Sputum grew MRSA and he is on vancomycin for this. He anticipating radiotherapy treatment today. Overall, he appears to be doing reasonably well. Medications been reviewed. We made no changes today. Labs been reviewed. White count is 4300 with 81.9% segs; H&H 9.3/28.0; platelet count 217,000; creatinine 0.60, BUN 16, electrolytes are normal; liver function tests within normal limits; calcium is low at 8.3 reflected in a low albumin of 2.1, total protein 4.9; vancomycin trough 6.3 Exam (Progress Note) - Constitutional Vitals: Period Temp Pulse Resp BP Sys/Carrero Pulse Ox Last 24 Hr 95.1 F-98.0 F 86-113 18-21 121-144/62-73 90-99 Exam: Chest is wheeze free with mild coarse large airway congestion and prolonged expiration; Mediport is in place on the right anterior chest Heart no gallop Abdomen is nontender and nondistended; bowel sounds are positive 4 Extremities with nothing to suggest acute deep venous thrombophlebitis Psychiatric oriented 3 Neurologic long-term motor function is intact Plan: Continue present treatment. Your plans for possible discharge tomorrow are noted. Results - Labs CBC & BMP: 01/04/17 04:00 01/04/17 04:00
[2017-01-04] MEDS: ATORVASTATIN 20 MG TABLET PO SCH (20:25)
[2017-01-04] MEDS: TEMAZEPAM 7.5 MG CAPSULE PO PRN (22:13)
[2017-01-05] MEDS: MEROPENEM 1,000 MG in SODIUM CHLORIDE 0.9% 100 ML IV SCH ×3 (00:19→16:10)
[2017-01-05] MEDS: methylPREDNISolone SOD SUC 125 MG/2 ML VIAL IV SCH ×3 (03:28→14:30)
[2017-01-05] MEDS ORDERED: HEPARIN LOCK FLUSH 500 UNIT/5 ML SYRINGE IV ONE ×2 (03:30→15:27)
[2017-01-05 04:03] LABS: Basophils % 0.4 % (0.0-0.8); Hematocrit 29.2 VOL% (42.0-52.0); Hemoglobin 9.7 GM/DL (14.0-18.0); Immature Granulocytes % 4.1 %; Immature Granulocytes Absolute 0.37 #; Lymphocytes # 0.4 10*3/uL (1.4-4.0); Lymphocytes % 4.7 % (21.2-54.2); Mean Corpuscular HGB Conc 33.2 GM/DL (32-36); Mean Corpuscular Hemoglobin 29 PG (27-34); Mean Corpuscular Volume 88.5 FL (87-102); Monocytes # 0.8 10*3/uL (0.11-0.8); Monocytes % 9.1 % (1.7-12.7); NRBC # 0.03 10*3/uL; Neutrophils # 7.4 10*3/uL (1.4-7.4); Neutrophils % 81.7 % (38.7-73.9); Platelet Count 167 T/CUMM (130-400); Red Cell Distribution Width 17.4 % (9.3-17.3); White Blood Count 9.1 T/CUMM (4-12)
[2017-01-05 04:31] LABS: Albumin 2.2 G/DL (3.4-5.0); Bilirubin,Total 0.5 MG/DL (0.2-1.0); Calcium 8.7 MG/DL (8.5-10.1); Osmolality,Calculated 278.1 MOS/KG (273-304); Potassium 3.8 MMOL/L (3.5-5.1)
[2017-01-05 05:19] LABS: Hypochromasia 2+; Platelet Estimate Normal
[2017-01-05] MEDS: VANCOMYCIN INJ 1,500 MG in SODIUM CHLORIDE 0.9% 500 ML IV SCH ×2 (06:24→14:29)
[2017-01-05] MEDS: RACEPINEPHRINE 0.5 ML NEB RESP TX SCH ×2 (07:40→11:39)
[2017-01-05] MEDS: ALBUTEROL 2.5 MG/3 ML NEB RESP TX SCH ×2 (07:40→11:39)
[2017-01-05] MEDS: BENAZEPRIL 40 MG TABLET PO SCH (08:50)
[2017-01-05] MEDS: DILTIAZEM CD 120 MG CAPSULE PO SCH (08:50)
[2017-01-05] MEDS: CETIRIZINE 10 MG TABLET PO SCH (08:51)
[2017-01-05] MEDS: FLUTICASONE 50 MCG NASAL SPRAY 16 GM BOTTLE BOTH NARES SCH (08:51)
[2017-01-05] MEDS: hydroCHLOROthiazide 25 MG TABLET PO SCH (08:51)
[2017-01-05] MEDS: sitaGLIPtin 100 MG TABLET PO SCH (08:51)
[2017-01-05] MEDS: amLODIPine 10 MG TABLET PO SCH (08:51)
[2017-01-05] MEDS: INSULIN REGULAR 100 UNIT/ML SUBCUT SCH ×2 (08:54→12:46)
[2017-01-05] MEDS ORDERED: valACYclovir 500 MG TABLET PO SCH (12:00)
--- NOTE | 2017-01-05 12:32 | Pulmonology Progress Note ---
Pulmonary - PN: Subj Interval history: Marquise Hernandez, [facility]-, acting as scribe for Dr. Cordell Almeida This is a 61-year-old white male who we saw in pulmonary consultation on 2016. At that time, our impressions were: 1. 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 Postchemotherapy. 2. Hemoptysis. This is coming from the area of the cancer. Bleeding was the reason he had a bronchoscope that diagnosed a cancer. Overall the bleeding is better. 3. Obstructive pneumonia. This is also related to the interim endobronchial small cell carcinoma. I suspect this will resolve quickly with antibiotics. 4. Past history tobacco abuse 5. COPD 6. History of hiatal hernia with gastroesophageal reflux disease and esophageal stricture 7. Hyperlipidemia 8. High blood pressure 9. See past history. 12/31/2016. Today's chest x-ray is comparable to yesterday's chest x-ray. There are no positive cultures. The patient is afebrile. White blood cell count is dropped from 39,000 519,300 with 86.56. Sodium is 133 potassium 3.4 creatinine 0.9 with a BUN of 25. 01/01/2017. Patient was was seen along with his daughter and Miley javier RN. He wanted to talk about the pluses and minuses of a Mediport. We did. And I recommended he go through with it. Patient will let his nurse know and will send a consult if he decides to have this. He complained a lot about his IV sites today. His chest x-ray is about the same. There is hyperinflation of the right lung. Heart size is normal. There is an apical fat pad. There is a mass posterior to the left hilum and there is atelectasis of the posterior segment of the left lung. This is a stable finding. The patient continues to have some slow hemoptysis. His sputum's are growing a gram-positive cocci. There are no disease or sensitivities available. White count has dropped from 39,000 509,600 with treatment. H&H is 8.9/27.3 and platelets of 395,000. Electrolytes are close to normal. Creatinine is 0.8 with a BUN of 26 01/02/2017. The patient was seen today along with his . The patient has been seen in surgical consultation by Dr. Hendrix. He is tentatively plan for Mediport placement tomorrow. His sputum has grown MRSA. We have started vancomycin and have asked pharmacology to dose and manage this. We have asked the nursing staff to relate this information to Dr. Hendrix in case he needs to rearrange the timing of his Mediport placement. We have also discussed this with the patient and his . Blood cultures are growing no organisms. Overall, the patient looks markedly improved. Medications have been reviewed. Vancomycin was started today as above. Labs been reviewed. White count is 4700 with 86.7% segs; H&H 9.5/29.0; platelet count 312,000; creatinine 0.0, BUN 22 sodium 135, potassium 4.3; total bilirubin 1.10, AST 7, ALT 20, alkaline phosphatase 112, calcium 9.4, albumin 2.3, total protein 5.6 01/03/2017. The patient was off the floor earlier this morning for Mediport placement. Per night yesterday, sputum grew MRSA and he was started on vancomycin. We consulted pharmacology for dosing and management of this. Medications have been reviewed. We made no changes today. Labs been reviewed. White count is 3600 with 81.0% segs; H&H 9.1/26.9; platelet count 253,000; creatinine 0.70, BUN 21, electrolytes are normal; liver function tests within normal limits; calcium 8.7, albumin 2.1, total protein 5.1 01/04/2017. The patient was seen today along with his . Patient had a Mediport placed yesterday. This was uneventful. He is doing well this morning. He continues to have scant amount of hemoptysis daily. He continues on racemic epinephrine. Sputum grew MRSA and he is on vancomycin for this. He anticipating radiotherapy treatment today. Overall, he appears to be doing reasonably well. Medications been reviewed. We made no changes today. Labs been reviewed. White count is 4300 with 81.9% segs; H&H 9.3/28.0; platelet count 217,000; creatinine 0.60, BUN 16, electrolytes are normal; liver function tests within normal limits; calcium is low at 8.3 reflected in a low albumin of 2.1, total protein 4.9; vancomycin trough 6.3 01/05/2017. Patient was seen today along with his . He states he is doing well and would like to be discharged home. It is his understanding that that is Dr. Garnett as planned. Dr. Garnett is not rounded today, but nursing staff reports that this will most likely happen. Patient complains of a fever blister. This be treated with Valtrex for 5 days. Medications have been reviewed. Labs been reviewed. White count is 9100 with 81.7% segs; H&H 9.7/29.2; platelet count 167,000; creatinine 0.70, BUN 15, sodium 135, potassium 3.8; liver function tests within normal limits; calcium 8.7, albumin 2.2, total protein 5.0 Exam (Progress Note) - Constitutional Vitals: Period Temp Pulse Resp BP Sys/Carrero Pulse Ox Last 24 Hr 96.5 F-97.9 F 67-109 18-22 119-165/56-91 90-98 Exam: Chest is wheeze free with mild coarse large airway congestion and prolonged expiration; Mediport is in place on the right anterior chest Heart no gallop Abdomen is nontender and nondistended; bowel sounds are positive 4 Extremities with nothing to suggest acute deep venous thrombophlebitis Psychiatric oriented 3 Neurologic long-term motor function is intact Plan: The patient is stable from a pulmonary standpoint. After today, we will be out of town until 01/15/2017. We will sign off. If patient remains inpatient in pulmonary assistance is needed, please contact Dr. Rick Garcia. Results - Labs CBC & BMP: 01/05/17 03:50 01/05/17 03:50
--- NOTE | 2017-01-05 14:27 | Discharge Summary ---
Hospital Course - Hospital Course Hospital Course: Patient admitted with continued hemoptysis. His cough has stabilized and actually improved during his hospitalization. Sputum culture was positive for MRSA though he has not exhibited fever or large amounts of purulent sputum. He is remained ambulatory during his hospitalization with periods of both O2 utilization nasal cannula and periods of breathing comfortable on room air. He has received vancomycin and meropenem during his hospitalization. These will be discontinued and he will be placed on doxycycline 100 mg twice daily #14 for empiric coverage of his MRSA in the sputum. His labs and blood counts have been acceptable during his hospitalization. He was seen in consultation by radiotherapy and has received 2 treatments to the left lower lobe area. There are 15 total treatments planned. He has been seen in consultation by case management with assistance for home nebulizer, home O2 as well as arranging Medicaid transportation for his radiation treatments. I will plan on seeing him in the office around January 22 for evaluation of next cycle of chemotherapy Discharge Plan - Discharge Medications Continue Benazepril [Lotensin] 40 mg PO QAM Albuterol Sulfate [Ventolin HFA] 2 puff INH TID Hydrocodone/Acetaminophen [Hydrocodon-Acetaminophen 5-325] 1 each PO Q4-6H PRN PRN Reason: Pain Cetirizine HCl [Cetirizine Tab] 10 mg PO QAM dilTIAZem HCl [Diltiazem ER (24 hr)] 120 mg PO QAM Linagliptin [Tradjenta] 5 mg PO QAM Meclizine [Antivert] 25 mg PO QID PRN #20 tablet PRN Reason: Dizziness hydroCHLOROthiazide [Hydrochlorothiazide] 25 mg PO QAM amLODIPine [Norvasc] 10 mg PO QAM Hydrocodone Bit/Homatrop Me-Br [Hydrocodone-Homatropine Syrup] 10 ml PO Q4H PRN PRN Reason: Cough Discontinued Atorvastatin Calcium [Atorvastatin Calcium] 20 mg PO BEDTIME Ciprofloxacin Tab [Cipro Tab] 500 mg PO Q12HR #20 tablet - Follow Up or Referral - Forms/Instructions Exam - Constitutional Vitals: Period Temp Pulse Resp BP Sys/Carrero Pulse Ox Last 24 Hr 96.5 F-97.9 F 67-109 18-22 119-165/56-91 90-98 Discharge Results Procedures and tests throughout hospitalization: Pending Orders 01/06/17 04:00 Comp Blood Count Auto Diff IN AM Comprehensive Metabolic Panel IN AM Labs on day of discharge: Labs from last 24 hours 01/05/17 01/05/17 01/05/17 11:48 07:12 03:50 WBC RBC Hgb Hct MCV MCH MCHC RDW Plt Count MPV Neut % (Auto) Lymph % (Auto) [place] % (Auto) Eos % (Auto) Baso % (Auto) Neut # (Auto) Lymph # (Auto) [place] # (Auto) Eos # (Auto) Baso # (Auto) Total Counted Immature Gran % Nucleated RBC % Immature Gran # Segmented Neutrophils Band Neutrophils Lymphocytes Monocytes Eosinophils Basophils Metamyelocytes Nucleated RBCs # Platelet Estimate Immature Plt Fraction Hypochromasia Sodium 135 L Potassium 3.8 Chloride 94 L Carbon Dioxide 38 H Anion Gap 6.8 BUN 15 Creatinine 0.70 GFR Calculation 138 BUN/Creatinine Ratio 21.00 H Glucose 239 H POC Glucose 228 H 233 H Calculated Osmolality 278.1 Calcium 8.7 Total Bilirubin 0.50 AST 12 ALT 23 Alkaline Phosphatase 105 Total Protein 5.0 L Albumin 2.2 L Globulin 2.8 Albumin/Globulin Ratio 0.7 L 01/05/17 01/04/17 01/04/17 03:50 19:13 15:44 WBC 9.1 D RBC 3.30 L Hgb 9.7 L Hct 29.2 L MCV 88.5 MCH 29 MCHC 33.2 RDW 17.4 H Plt Count 167 D MPV 10.0 Neut % (Auto) 81.7 H Lymph % (Auto) 4.7 L [place] % (Auto) 9.1 Eos % (Auto) 0.0 Baso % (Auto) 0.4 Neut # (Auto) 7.4 Lymph # (Auto) 0.4 L [place] # (Auto) 0.8 Eos # (Auto) 0.0 Baso # (Auto) 0.0 Total Counted Not Reportable Immature Gran % 4.1 Nucleated RBC % 0.3 Immature Gran # 0.37 Segmented Neutrophils Not Reportable Band Neutrophils Not Reportable Lymphocytes Not Reportable Monocytes Not Reportable Eosinophils Not Reportable Basophils Not Reportable Metamyelocytes Not Reportable Nucleated RBCs # 0.03 Platelet Estimate Normal Immature Plt Fraction 0.0 Hypochromasia 2+ Sodium Potassium Chloride Carbon Dioxide Anion Gap BUN Creatinine GFR Calculation BUN/Creatinine Ratio Glucose POC Glucose 315 H 354 H Calculated Osmolality Calcium Total Bilirubin AST ALT Alkaline Phosphatase Total Protein Albumin Globulin Albumin/Globulin Ratio DS: Provider Date of admission: 01/02/17 08:43 Primary care physician: YOSEPH Avalos Attending physician on admission: Jhonny Gayle MD Consults: 12/29/16 19:45 Consult to Dietitian [CONS] Routine Reason for Dietitian: Diet Recommendations Consult to Pastoral Services [CONS] Routine Comment: Pastoral Screen: Request [employer] Visit Pastoral Screen Source of Request: Patient 12/30/16 12:07 Consult to Physician [CONS] Routine Comment: Hx Lung CA, pt known to you Consulting Provider: Cordell Almeida When should Consulting Provider be notified: Now Person Notified: Dr. Almeida Date Notified: 12/30/16 Time Notified: 12:31 01/02/17 09:00 Consult to Physician [CONS] Routine Comment: for mediport placement Consulting Provider: Walter Hendrix Person Notified: Billie Date Notified: 01/02/17 Time Notified: 09:12 01/02/17 09:01 Consult to Physician [CONS] Routine Comment: Consulting Provider: 01/02/17 09:02 Consult to Physician [CONS] Routine Comment: has appt the 8th, can he come today? Consulting Provider: Ru Wells Person Notified: Kallie Date Notified: 01/02/17 Time Notified: 09:55 01/02/17 09:36 Consult to Anesthesiology [CONS] Routine Consulting Provider: Reason for Anesthesiology: Pre-op Clearance 01/02/17 12:31 Consult to Pharmacy [CONS] Routine Reason for Pharmacy Consult: Dose/Manage Vancomycin Discharging clinician: Jhonny Garnett MD
[2017-01-05 17:40] VITALS: BP 115/59
== END 2017-01-05 16:10 | disposition home or self-care (01) | DRG 136 ==
LOC: EDBD → EDUNIT# → N.EDINP 16:46 → N.ED 16:46 → N.4E 18:55
PROVIDERS: ADMIT Specialist; ATTEND Specialist

== ENCOUNTER 2017-01-21 18:40 | Inpatient (IN) ==
[2017-01-21] MEDS ORDERED: ALBUTEROL/IPRATROPIUM 3 ML NEB RESP TX STA (19:01)
[2017-01-21] MEDS ORDERED: SODIUM CHLORIDE 0.9% 500 ML IV STA (19:01)
[2017-01-21] MEDS ORDERED: PIPERACILLIN/TAZOBACTAM 3,375 MG in SODIUM CHLORIDE 0.9% 100 ML IV STA (20:06)
[2017-01-21] MEDS ORDERED: LEVOFLOXACIN INJ 750 MG in PREMIX 1 EACH IV STA (20:06)
[2017-01-21] MEDS ORDERED: chlorproMAZINE 25 MG TABLET PO PRN (20:12)
[2017-01-21] MEDS ORDERED: diphenhydrAMINE CAP 25 MG CAPSULE PO PRN (20:12)
[2017-01-21] MEDS ORDERED: ONDANSETRON 4 MG/2 ML VIAL IV PRN (20:12)
[2017-01-21] MEDS ORDERED: MYLANTA/LIDO VISC 2:1 300 ML BOTTLE SWISH/SPIT PRN (20:12)
[2017-01-21] MEDS ORDERED: ALUMINUM/MAGNES/SIMETH MAX STR 30 ML UDCUP PO PRN (20:12)
[2017-01-21] MEDS ORDERED: LOPERAMIDE 2 MG CAPSULE PO PRN ×2 (20:12)
[2017-01-21] MEDS ORDERED: chlorproMAZINE INJ 50 MG in SODIUM CHLORIDE 0.9% 100 ML IV PRN (20:12)
[2017-01-21] MEDS ORDERED: chlorproMAZINE INJ 25 MG in SODIUM CHLORIDE 0.9% 100 ML IV PRN (20:12)
[2017-01-21] MEDS ORDERED: MYLANTA/LIDO VISC 2:1 300 ML BOTTLE SWISH/SWAL PRN (20:12)
[2017-01-21] MEDS ORDERED: traMADol 50 MG TABLET PO PRN (20:12)
[2017-01-21] MEDS ORDERED: BENZTROPINE 2 MG/2 ML AMP IV PRN (20:12)
[2017-01-21] MEDS ORDERED: PROMETHAZINE INJ 25 MG in SODIUM CHLORIDE 0.9% 50 ML IV PRN (20:12)
--- NOTE | 2017-01-21 20:17 | Emergency Department Note ---
IVi Brittany, am scribing for, and in the presence of, Kolby Mayers MD 19:06. ITalib Kevin Lee, MD, personally performed the services described in this documentation, ascribed by Kari Lebron in my presence, and it is both accurate and complete . Arrival - Arrival Chief Complaint: Abdominal / Flank Pain ED Nursing Triage Note: pt to er 10 via ems coming from [facility] as a transfer with pneumonia and constipation with abd pain . no bowel movement in 9 days. Mode of Arrival: Stretcher Limitations: No Limitations Source: Patient, Family - History of Present Illness HPI Narrative: This is a 61 y/o white male,who presents to the ED by EMS for further respiratory evaluation. His family states the pt was transferred from [facility] for further evaluation of left lobe PNA. He states he has been coughing. He denies pharyngitis, but notes his throat is "raw" from coughing so much. He is not in respiratory distress at this time. Pt has no other complaints/pain in the ED a this time. Pt has a PMHx of HTN, tachycardia, TIA, lung cancer, GERD, and stomach ulcer. Pt has had a prostate surgery. Pt has a family medical Hx of colon cancer. Pt denies a social Hx. Pt's family states he is on home O2 @ 3L [place]. Pt's oncologist is Dr. Garnett. Pt's family states he has chemo next week. Lab work which was preformed while at [facility] reads as follows: Urine was normal. WBC 25.5 Glucose, serum 122 BUN 13 Creatinine, serum 0.7 Calcium 8.6 Sodium 134 Potassium 3.5 Bicarbonate 33 Chloride, serum 97 Anion GAP 7.6 Onset (ago): day(s) (Started 9 days ago) Consistency: constant Severity: moderate Allergies/Adverse Reactions: Allergies Allergy/AdvReac Type Severity Reaction Status Date / Time influenza virus vaccine, Allergy Severe ANAPHYLAXIS Verified 01/21/17 18:49 specific Home Medications: Home Medications Medication Instructions Recorded Confirmed Type Albuterol Sulfate [Ventolin HFA] 2 puff INH TID 12/07/16 01/21/17 History Hydrocodone/Acetaminophen 1 each PO Q4-6H PRN 12/07/16 01/21/17 History [Hydrocodon-Acetaminophen 5-325] Linagliptin [Tradjenta] 5 mg PO BEDTIME 12/22/16 01/21/17 History Meclizine [Antivert] 25 mg PO QID PRN #20 tablet 12/22/16 01/21/17 Rx dilTIAZem HCl [Diltiazem ER (24 120 mg PO BEDTIME 12/22/16 01/21/17 History hr)] Hydrocodone Bit/Homatrop Me-Br 10 ml PO Q4H PRN 12/29/16 01/21/17 History [Hydrocodone-Homatropine Syrup] Amlodipine Besylate 5 mg PO BEDTIME 01/21/17 01/21/17 History Fluticasone Propionate 1 spray BOTH NARES DAILY PRN 01/21/17 01/21/17 History [Fluticasone 50 mcg Nasal [place]] Loratadine 10 mg PO BEDTIME 01/21/17 01/21/17 History Potassium 99 mg PO BEDTIME 01/21/17 01/21/17 History hydroCHLOROthiazide 25 mg PO BEDTIME 01/21/17 01/21/17 History [Hydrochlorothiazide] predniSONE TAB [PredniSONE] 10 mg PO BEDTIME 01/21/17 01/21/17 History Review of System - Review of System 12 point system: reviewed and no additional remarkable complaints except as stated - Review of System Respiratory: Present: cough, other (Left lobe PNA). Absent: respiratory distress, wheezing Medical,Surgical,& Family Hx - Medical History Cardio: History of: Cardiac Dysrhythmia (tachycardia), Hypertension Neurology: History of: TIA (MONTH OR TWO AGO POSS?) No history of: Seizures HEENT: Comment Only: Dental Problems (SOME TEETH BROKE OFF) Endocrine: No history of: Thyroid Disorder Comment Only: Diabetes Mellitus (NIDDM) (BORDERLINE) Respiratory: History of: Bronchitis, Pneumonia (6 MONTHS AGO), Lung Cancer Gastrointestinal: History of: GERD, GI Problems (STOMACH ULCERS) No history of: Hepatitis, Liver Problems Musculoskeletal: History of: Musculoskeletal Problems (BOTH ANKLES BROKEN, WITH PINS/FIXATOR, "bad knees") No history of: Amputation Other: History of: Cancer No history of: Anesthesia Reactions (HARD TO BUT TO SLEEP/ HIGH TOLERANCE FOR PAIN) - Surgical History Cardiac Surgeries: Patient Denies: Cardiac Catheterization Thoracic Surgeries: Patient denies;: Lobectomy Abdominal Surgeries: Patient denies: Abdominal Surgery Reproductive Surgeries: Comment Only: Prostate Surgery (SLOW MOVING CA OVER 20 YRS IN PROSTATE ACCORDING TO , DOES NOT SEE MD) - Family History Family History: Reports;: Family Cancer (Mother- colon ca) - Social History Smoking Status: Unknown if ever smoked Frequency of Alcohol Use: Unknown Type of Drug Use: Unknown Exam Vital Signs: Vital Signs Temperature 98.7 F 01/21/17 18:42 Pulse Rate 113 H 01/21/17 18:42 Respiratory Rate 18 01/21/17 18:42 Blood Pressure 143/80 01/21/17 18:42 O2 Sat by Pulse Oximetry 95 01/21/17 18:42 - General General appearance: alert, in no apparent distress - Head Head exam: Present: atraumatic, normal inspection - Eye Eye exam: Present: PERRL, EOMI. Absent: nystagmus - ENT ENT exam: Present: mucous membranes moist - Neck Neck exam: Present: full ROM, trachea midline. Absent: tenderness - Chest Chest inspection: Present: symmetric chest wall rise, other (Port on right chest wall ). Absent: tenderness - Respiratory Respiratory exam: Present: other (Diminshed breath sounds ). Absent: prolonged expiratory phase - Cardiovascular Cardiovascular exam: Present: normal rhythm, tachycardia, normal heart sounds. Absent: murmur, rubs, gallop, clicks - Abdominal Exam Abdominal exam: Present: soft, normal bowel sounds. Absent: tenderness - Rectal Exam Rectal exam: Present: deferred - Extremities Exam Extremities exam: Present: normal inspection, full ROM, normal capillary refill. Absent: tenderness, pedal edema, joint swelling, calf tenderness - Back Exam Back exam: Present: full ROM. Absent: tenderness, muscle spasm, rashes - Neurological Exam Neurological exam: Present: alert, oriented X3, CN II-XII intact. Absent: motor sensory deficit - Psychiatric Psychiatric exam: Present: normal affect, normal mood. Absent: depressed, agitated, anxious - Skin Skin exam: Present: warm, dry, intact, normal color. Absent: cyanosis, diaphoresis Course Course Narrative: will admit for IV abx Results - Labs Lab Results: I have reviewed the patients labs (from OSH) - Diagnostic Findings Procedure: CT - chest: image reviewed by me (large mass with surrounding infiltrate) Disposition Clinical Impression: Pneumonia, Hx of cancer of lung Case discussed with: patient, patient's family Disposition: Still a Patient Condition: Stable
[2017-01-21] MEDS ORDERED: SODIUM CHLORIDE 0.45% 1,000 ML IV SCH (20:30)
--- NOTE | 2017-01-21 20:34 | CT Report ---
Exam: CT chest with intravenous contrast Exam date: 01/21/2017 7:15 PM Clinical History: 61 years,Male,worsening cough, chest abdominal pain Technique: Axial computed tomography images of the chest with intravenous contrast. The CT exam was performed using one or more of the following dose reduction techniques: Automated exposure control, adjustment of the mA and/or kV according to patient size, or use of iterative reconstruction technique. Contrast: 100 mL of Omnipaque 350 administered intravenously. Comparison: December 06, 2016 Findings: Lungs: There is again obstructed left infrahilar mass, poorly defined extending into the hilum with consolidation and volume loss of the left lower lobe. Minimal improved aeration of the left lung base. Pleural spaces: No significant change in size or appearance of the posterior pleural-based mass Heart: Coronary plaquing is noted Mediastinum: Increased hilar, carinal and mediastinal adenopathy with development of bilateral cervical and left axillary adenopathy Bones/joints: Destructive posterior right eighth rib lesion and is likely unchanged. Slight superior endplate deformity of L2 is again noted. Soft tissues: Unremarkable Vasculature: Mild atheromatous plaquing Impression: 1. Infiltrative obstructing left infrahilar mass and pleural-based mass within the posterior left lung base are likely unchanged in the interim 2. Progressed metastatic adenopathy 3. Slight improved aeration of the left lower lobe consolidation, consider obstructive pneumonia 4. Stable pathologic eighth rib fracture on the right and superior endplate deformity of L2 Exam: CT abdomen and pelvis with and without intravenous contrast Exam date: 01/21/2017 7: 42 PM Clinical History: 61 years,Male, worsening cough chest abdominal pain Technique: Axial computed tomography images of the abdomen and pelvis with intravenous contrast. All CT scans at this facility use one or more dose reduction techniques. Automated exposure control, MA/KV adjustment per patient size (including targeted exam Square dose is matched to indication) or iterative reconstruction technique Comparison: CT performed December 06, 2016 Findings: Lower thorax: See dedicated chest report. Abdomen: Liver: Increased size and number of hypoenhancing lesions throughout the liver parenchyma Gallbladder and bile ducts: Unremarkable. No calcified stones. No ductal dilatation. Pancreas: Pancreas is normal. Spleen: Spleen is normal. Adrenals: Slightly increase in size of left adrenal mass. Kidneys and ureters: There is focal stranding involving the right inferior renal pelvis and proximal ureter Stomach and bowel: No evidence of acute gastritis, colitis or enteritis. No bowel obstruction. Appendix: No primary or secondary signs to suggest appendicitis. Pelvis: Bladder: Unremarkable Reproductive: Unremarkable as visualized. Abdomen and pelvis: Intraperitoneal space: No pneumoperitoneum. No free intraperitoneal fluid Bones/joints: No acute osseous abnormality. Soft tissues: No mass Vasculature: No aortic aneurysm. Minimal atheromatous changes. Lymph nodes: Worsening retroperitoneal adenopathy Impression: 1. Progressed hepatic, left adrenal and retroperitoneal metastasis 2. Development of peripelvic and periureteral stranding on the right, differential considerations would include recently passed stone versus ascending infection. Correlate with urinalysis 3. Other findings as described above PROCEDURE INTERPRETED AT [facility] DEPARTMENT OF RADIOLOGY Final Report Signed by: Mando Mcfarlane
[2017-01-21 21:17] LABS: Basophils # 0.1 10*3/uL (0.0-0.2); Basophils % 0.2 % (0.0-0.8); Eosinophils % 0.1 % (0.00-10.9); Hemoglobin 7.9 GM/DL (14.0-18.0); Immature Granulocytes % 6.7 %; Immature Granulocytes Absolute 1.73 #; Lymphocytes # 1.1 10*3/uL (1.4-4.0); Lymphocytes % 4.1 % (21.2-54.2); Mean Corpuscular HGB Conc 31.6 GM/DL (32-36); Mean Corpuscular Hemoglobin 29 PG (27-34); Mean Corpuscular Volume 92.9 FL (87-102); Mean Platelet Volume 10.2 FL (9.6-12.0); Monocytes % 3.9 % (1.7-12.7); NRBC # 0.07 10*3/uL; Platelet Count 112 T/CUMM (130-400); Red Blood Count 2.69 MC/CUMM (3.8-5.5); White Blood Count 25.9 T/CUMM (4-12)
[2017-01-21] MEDS ORDERED: LEVOFLOXACIN INJ 150 ML IV ONE (21:32)
[2017-01-21 21:38] LABS: Band Neutrophils 6 % (0-10); Bilirubin,Total 0.9 MG/DL (0.2-1.0); Calcium 8.7 MG/DL (8.5-10.1); Eosinophils 1 % (0-10); Lymphocytes 3 % (20-55); Magnesium 1.6 MG/DL (1.8-2.4); Myelocytes 1 %; Nucleated Red Blood Cells 1 (0-5); Osmolality,Calculated 261.8 MOS/KG (273-304); Potassium 3.5 MMOL/L (3.5-5.1); Segmented Neutrophils 84 % (50-85); Total Cells Counted 100; Total Protein 6.5 G/DL (6.4-8.3); Uric Acid 3.3 MG/DL (3.5-7.2)
[2017-01-21 21:39] LABS: Anisocytosis 1+; Basophilic Stippling Few; Microcytosis 1+
[2017-01-21 21:40] LABS: Hypochromasia 1+; Platelet Estimate Adequate; Polychromasia Few; Spherocytes Few
[2017-01-21] MEDS: TEMAZEPAM 7.5 MG CAPSULE PO PRN (22:42)
[2017-01-21] MEDS: guaiFENesin 200 MG/10 ML UDCUP PO PRN (22:42)
[2017-01-22] MEDS: TEMAZEPAM 7.5 MG CAPSULE PO PRN ×2 (01:20→20:49)
[2017-01-22 02:06] LABS: Apearance,Urine CLEAR (Clear); Bilirubin,Urine Negative (Negative); Blood, Urine Negative (Negative); Glucose,Urine (UA) Negative (Negative); Ketones,Urine 5 mg/dL (Negative); Nitrite,Urine Negative (Negative); Protein,Urine Negative; RBC,Urine 1 /HPF (0-4); Squamous Epithelial Cell,Urine Occasional /HPF (0-10); Urine Color Yellow (Yellow); Urine Specific Gravity 1.051 (1.001-1.035); WBC,Urine 1 /HPF (0-6)
[2017-01-22 04:33] LABS: Basophils % 0.1 % (0.0-0.8); Eosinophils % 0.2 % (0.00-10.9); Hematocrit 21.3 VOL% (42.0-52.0); Hemoglobin 6.8 GM/DL (14.0-18.0); Immature Granulocytes % 6.8 %; Immature Granulocytes Absolute 1.61 #; Lymphocytes # 1.1 10*3/uL (1.4-4.0); Lymphocytes % 4.6 % (21.2-54.2); Mean Corpuscular HGB Conc 31.9 GM/DL (32-36); Mean Corpuscular Hemoglobin 30 PG (27-34); Mean Corpuscular Volume 93.4 FL (87-102); Mean Platelet Volume 9.9 FL (9.6-12.0); Monocytes % 4.1 % (1.7-12.7); NRBC # 0.06 10*3/uL; Neutrophils # 19.9 10*3/uL (1.4-7.4); Neutrophils % 84.2 % (38.7-73.9); Platelet Count 104 T/CUMM (130-400); Red Blood Count 2.28 MC/CUMM (3.8-5.5); Red Cell Distribution Width 20.1 % (9.3-17.3); White Blood Count 23.6 T/CUMM (4-12)
[2017-01-22 05:20] LABS: Band Neutrophils 11 % (0-10); Eosinophils 1 % (0-10); Lymphocytes 2 % (20-55); Segmented Neutrophils 83 % (50-85); Total Cells Counted 100
[2017-01-22 05:22] LABS: Anisocytosis 1+; Hypochromasia 2+; Microcytosis 1+; Platelet Estimate Normal
[2017-01-22 05:23] LABS: Polychromasia Few
[2017-01-22] MEDS ORDERED: MAGNESIUM SULF RIDER 4 GM in PREMIX 1 EACH IV ONE (08:52)
[2017-01-22] MEDS ORDERED: SODIUM PHOSPHATE ENEMA 133 ML BOTTLE RECTAL ONE (08:53)
[2017-01-22] MEDS ORDERED: SODIUM CHLORIDE 0.9% 250 ML IV PRN (08:53)
--- NOTE | 2017-01-22 08:57 | Oncology History&Physical ---
Assessment and Plan (1) Small cell carcinoma of lung Status: Acute Assessment and plan: The patient will be covered with antibiotics though in in all likelihood his primary underlying problem is the progressive metastatic small cell lung cancer. We will discuss chemotherapy for later this week and continue to attempt the 5 remaining treatments of radiotherapy. Current Visit: No History of Present Illness Chief complaint: Feeling bad History of present illness: Mr. Barlow is a 61 year old male With widespread extensive stage small cell carcinoma. The patient has been hospitalized several times for hemoptysis and possible pneumonia. He presented to [facility] yesterday with malaise and generalized worsening of his physical status. He continues with some degree of hemoptysis his says is better but he says is worse. It is really difficult to tail. He is on antibiotics though there is no fever reported. His weight is decreased from the last admission. He was discharged approximately 7 days ago. He has 1 more week of chest radiotherapy which we were trying to treat the hemoptysis with. He was due for chemotherapy this week and I have reviewed his CT scan. There is significant progression of lymph nodes in the chest and also disease within the abdomen. I will discuss this with him later this week. It is possible we could entertain both chemo and radiation though this would increase the risk of already present side effects. He is anemic and thrombocytopenic today. He also has not had a bowel movement in 9-10 days which we are addressing. Home Medications Medication Instructions Recorded Confirmed Type Albuterol Sulfate [Ventolin HFA] 2 puff INH TID 12/07/16 01/21/17 History Hydrocodone/Acetaminophen 1 each PO Q4-6H PRN 12/07/16 01/21/17 History [Hydrocodon-Acetaminophen 5-325] Linagliptin [Tradjenta] 5 mg PO BEDTIME 12/22/16 01/21/17 History Meclizine [Antivert] 25 mg PO QID PRN #20 tablet 12/22/16 01/21/17 Rx dilTIAZem HCl [Diltiazem ER (24 120 mg PO BEDTIME 12/22/16 01/21/17 History hr)] Hydrocodone Bit/Homatrop Me-Br 10 ml PO Q4H PRN 12/29/16 01/21/17 History [Hydrocodone-Homatropine Syrup] Amlodipine Besylate 5 mg PO BEDTIME 01/21/17 01/21/17 History Fluticasone Propionate 1 spray BOTH NARES DAILY PRN 01/21/17 01/21/17 History [Fluticasone 50 mcg Nasal [place]] Loratadine 10 mg PO BEDTIME 01/21/17 01/21/17 History Potassium 99 mg PO BEDTIME 01/21/17 01/21/17 History hydroCHLOROthiazide 25 mg PO BEDTIME 01/21/17 01/21/17 History [Hydrochlorothiazide] predniSONE TAB [PredniSONE] 10 mg PO BEDTIME 01/21/17 01/21/17 History Allergies Allergy/AdvReac Type Severity Reaction Status Date / Time influenza virus vaccine, Allergy Severe ANAPHYLAXIS Verified 01/21/17 18:49 specific Medical,Surgical,& Family Hx - Medical History Cardio: History of: Cardiac Dysrhythmia (tachycardia), Hypertension Neurology: History of: TIA (MONTH OR TWO AGO POSS?) No history of: Seizures HEENT: Comment Only: Dental Problems (SOME TEETH BROKE OFF) Endocrine: No history of: Thyroid Disorder Comment Only: Diabetes Mellitus (NIDDM) (BORDERLINE) Respiratory: History of: Bronchitis, Pneumonia (6 MONTHS AGO), Lung Cancer Gastrointestinal: History of: GERD, GI Problems (STOMACH ULCERS) No history of: Hepatitis, Liver Problems Musculoskeletal: History of: Musculoskeletal Problems (BOTH ANKLES BROKEN, WITH PINS/FIXATOR, "bad knees") No history of: Amputation Other: History of: Cancer No history of: Anesthesia Reactions (HARD TO BUT TO SLEEP/ HIGH TOLERANCE FOR PAIN) - Surgical History Cardiac Surgeries: Patient Denies: Cardiac Catheterization Thoracic Surgeries: Patient denies;: Lobectomy Abdominal Surgeries: Patient denies: Abdominal Surgery Reproductive Surgeries: Comment Only: Prostate Surgery (SLOW MOVING CA OVER 20 YRS IN PROSTATE ACCORDING TO , DOES NOT SEE MD) - Family History Family History: Reports;: Family Cancer (Mother- colon ca) - Social History Smoking Status: Former smoker Frequency of Alcohol Use: Unknown Type of Drug Use: Unknown - Constitutional Constitutional: Present: fatigue, malaise, weakness, weight loss. Absent: chills, fever(s), increased appetite, weight gain - EENT Eye: Absent: blurry vision, diplopia, loss of vision Ears: Absent: decreased hearing, ear discharge, ear pain Nose, mouth and throat: Absent: neck mass, neck pain, odynophagia, sore throat - Cardiovascular Cardiovascular ROS IM: Absent: edema, palpitations - Respiratory Respiratory: Present: dyspnea, hemoptysis - Gastrointestinal Gastrointestinal: Absent: dysphagia, early satiety Exam - Constitutional Vitals: Period Temp Pulse Resp BP Sys/Carrero Pulse Ox Last 24 Hr 97.2 F-98.7 F 112-130 18-20 130-173/70-91 92-97 General appearance: no acute distress - Head Head Exam: Present: normocephalic, atraumatic - ENT ENT exam: Present: normal exam, normal external ear exam - Neck Neck exam: Absent: tenderness, thyromegaly - Respiratory Respiratory exam: Absent: accessory muscle use, chest wall tenderness, wheezes - Cardiovascular Cardiovascular exam: Present: RRR. Absent: systolic murmur - GI/Abdominal GI/Abdominal exam: Present: tenderness (Right upper quadrant). Absent: ascites , distended, firm, mass - Neurological Exam Neurological exam: Present: alert, oriented X3 - Psychiatric Psychiatric exam: Present: normal affect, normal mood - Skin Skin exam: Present: warm, dry Results - Labs CBC & BMP: 01/22/17 04:00 01/21/17 20:37
[2017-01-22] MEDS: PANTOPRAZOLE 40 MG VIAL IV SCH (10:49)
[2017-01-22] MEDS: PIPERACILLIN/TAZOBACTAM 3,375 MG in SODIUM CHLORIDE 0.9% 100 ML IV SCH ×2 (10:49→23:25)
[2017-01-22] MEDS: guaiFENesin 200 MG/10 ML UDCUP PO PRN (20:06)
[2017-01-23] MEDS: PIPERACILLIN/TAZOBACTAM 3,375 MG in SODIUM CHLORIDE 0.9% 100 ML IV SCH ×3 (03:35→16:45)
[2017-01-23] MEDS: guaiFENesin 200 MG/10 ML UDCUP PO PRN ×2 (03:37→09:43)
[2017-01-23 04:42] LABS: Basophils # 0.1 10*3/uL (0.0-0.2); Basophils % 0.2 % (0.0-0.8); Eosinophils # 0.1 10*3/uL (0.0-0.87); Eosinophils % 0.2 % (0.00-10.9); Hematocrit 26.8 VOL% (42.0-52.0); Lymphocytes # 1.1 10*3/uL (1.4-4.0); Mean Corpuscular HGB Conc 33.2 GM/DL (32-36); Mean Corpuscular Hemoglobin 30 PG (27-34); Mean Corpuscular Volume 90.8 FL (87-102); Mean Platelet Volume 10.5 FL (9.6-12.0); Monocytes # 1.1 10*3/uL (0.11-0.8); NRBC # 0.05 10*3/uL; Neutrophils # 22.7 10*3/uL (1.4-7.4); Neutrophils % 85.6 % (38.7-73.9); Platelet Count 98 T/CUMM (130-400); Red Blood Count 2.95 MC/CUMM (3.8-5.5); Red Cell Distribution Width 18.5 % (9.3-17.3); White Blood Count 26.5 T/CUMM (4-12)
[2017-01-23 04:55] LABS: Hemoglobin 8.9 GM/DL (14.0-18.0)
[2017-01-23 05:23] LABS: Anisocytosis 2+; Band Neutrophils 4 % (0-10); Lymphocytes 4 % (20-55); Macrocytosis 2+; Ovalocytes 2+; Platelet Estimate Decreased; Polychromasia Few; Segmented Neutrophils 88 % (50-85); Total Cells Counted 100
[2017-01-23] MEDS ORDERED: MECLIZINE 25 MG TABLET PO PRN (07:46)
[2017-01-23 08:34] LABS: Calcium 8.3 MG/DL (8.5-10.1); Magnesium 2.2 MG/DL (1.8-2.4); Osmolality,Calculated 261.7 MOS/KG (273-304); Potassium 3.4 MMOL/L (3.5-5.1)
--- NOTE | 2017-01-23 08:39 | Oncology Progress Note ---
Assessment and Plan (1) Small cell carcinoma of lung Status: Acute Assessment and plan: The patient will be covered with antibiotics though in in all likelihood his primary underlying problem is the progressive metastatic small cell lung cancer. We will discuss chemotherapy for later this week and continue to attempt the 5 remaining treatments of radiotherapy. Current Visit: No Oncology Subjective PN Interval history: Patient with small cell carcinoma of the lung. Patient appears in no distress this morning though he does appear chronically ill. I discussed his CT scan with him that shows both pulmonary and hepatic progression. I have recommended to discontinue further radiotherapy treatments of approximately 4 treatments remaining and focus on systemic treatment with cycle 1 Toprol T can as second line systemic therapy. I have done my best to discuss the possibility of enhanced side effects due to his worsening performance status. I also discussed best supportive care. The patient desires further treatment with chemotherapy and this will be initiated today. We also discussed advanced directives with a DO NOT RESUSCITATE request per patient. This will be entered into the electronic medical record. We will also follow daily labs during the chemotherapy treatments. Exam - Constitutional Vitals: Period Temp Pulse Resp BP Sys/Carrero Pulse Ox Last 24 Hr 97.3 F-98.9 F 96-127 18-24 125-181/73-99 94-98 Results - Labs CBC & BMP: 01/23/17 03:33 01/23/17 08:00
[2017-01-23] MEDS ORDERED: PALONOSETRON 0.25 MG/5 ML VIAL IV ONE (09:00)
[2017-01-23] MEDS ORDERED: DEXAMETHASONE INJ 10 MG in SODIUM CHLORIDE 0.9% 50 ML IV ONE (09:00)
[2017-01-23] MEDS: PANTOPRAZOLE 40 MG VIAL IV SCH (09:43)
[2017-01-23] MEDS: FLUTICASONE 50 MCG NASAL SPRAY 16 GM BOTTLE BOTH NARES PRN (09:44)
[2017-01-23] MEDS ORDERED: SKIN HEALING OINT (AQUAPHOR) 50 GM TUBE TOP PRN (11:57)
[2017-01-23] MEDS: TOPOTECAN IV SCH (13:19)
[2017-01-23] MEDS: SODIUM CHLORIDE 0.9% IV SCH (13:19)
[2017-01-23] MEDS: ALPRAZolam 0.25 MG TABLET PO PRN ×2 (13:23→21:02)
[2017-01-23] MEDS: HYDROcodone/HOMATROPINE 5 ML UDCUP PO PRN ×2 (13:27→21:06)
[2017-01-23] MEDS: DILTIAZEM CD 120 MG CAPSULE PO SCH (20:58)
[2017-01-23] MEDS: LORATADINE 10 MG TABLET PO SCH (21:00)
[2017-01-23] MEDS ORDERED: hydroCHLOROthiazide 25 MG TABLET PO SCH (21:00)
[2017-01-23] MEDS: sitaGLIPtin 100 MG TABLET PO SCH (21:01)
[2017-01-23] MEDS: predniSONE 10 MG TABLET PO SCH (21:01)
[2017-01-23] MEDS: POTASSIUM GLUCONATE 500 MG TABLET PO SCH (21:01)
[2017-01-23] MEDS: amLODIPine 5 MG TABLET PO SCH (21:02)
[2017-01-24] MEDS: PIPERACILLIN/TAZOBACTAM 3,375 MG in SODIUM CHLORIDE 0.9% 100 ML IV SCH ×4 (00:45→23:39)
[2017-01-24] MEDS: HYDROcodone/HOMATROPINE 5 ML UDCUP PO PRN ×4 (04:12→20:29)
[2017-01-24 04:58] LABS: Basophils # 0.1 10*3/uL (0.0-0.2); Basophils % 0.2 % (0.0-0.8); Hematocrit 27.7 VOL% (42.0-52.0); Hemoglobin 8.9 GM/DL (14.0-18.0); Immature Granulocytes % 5.6 %; Immature Granulocytes Absolute 1.51 #; Lymphocytes # 0.6 10*3/uL (1.4-4.0); Lymphocytes % 2.1 % (21.2-54.2); Mean Corpuscular HGB Conc 32.1 GM/DL (32-36); Mean Corpuscular Hemoglobin 30 PG (27-34); Mean Corpuscular Volume 92.3 FL (87-102); Monocytes # 0.7 10*3/uL (0.11-0.8); Monocytes % 2.7 % (1.7-12.7); NRBC # 0.02 10*3/uL; Neutrophils # 24.2 10*3/uL (1.4-7.4); Neutrophils % 89.4 % (38.7-73.9); Red Cell Distribution Width 18.6 % (9.3-17.3); White Blood Count 27.1 T/CUMM (4-12)
[2017-01-24 04:59] LABS: Platelet Count 98 T/CUMM (130-400)
[2017-01-24 05:27] LABS: Calcium 8.4 MG/DL (8.5-10.1); Magnesium 2.1 MG/DL (1.8-2.4); Osmolality,Calculated 272.2 MOS/KG (273-304); Potassium 3.6 MMOL/L (3.5-5.1)
[2017-01-24 05:59] LABS: Band Neutrophils 7 % (0-10); Hypochromasia 2+; Lymphocytes 2 % (20-55); Segmented Neutrophils 89 % (50-85); Total Cells Counted 100
[2017-01-24 06:00] LABS: Anisocytosis 1+; Macrocytosis 1+; Polychromasia Slight
[2017-01-24 06:01] LABS: Platelet Estimate Decreased
--- NOTE | 2017-01-24 08:30 | Oncology Progress Note ---
Assessment and Plan (1) Small cell carcinoma of lung Status: Acute Assessment and plan: The patient will be covered with antibiotics though in in all likelihood his primary underlying problem is the progressive metastatic small cell lung cancer. We will discuss chemotherapy for later this week and continue to attempt the 5 remaining treatments of radiotherapy. Current Visit: No Oncology Subjective PN Interval history: Patient unchanged overnight. Day 2 cycle 1 Toprol T can. Denies nausea vomiting at present. Labs remained grossly stable. The patient is not on pharmacologic DVT prophylaxis due to continued hemoptysis. Further radiation has been discontinued Exam - Constitutional Vitals: Period Temp Pulse Resp BP Sys/Carrero Pulse Ox Last 24 Hr 96.0 F-97.6 F 79-118 15-20 136-214/86-99 93-95 Results - Labs CBC & BMP: 01/24/17 04:00 01/24/17 04:00
[2017-01-24] MEDS ORDERED: hydroCHLOROthiazide 25 MG TABLET PO SCH (09:00)
[2017-01-24] MEDS: hydroCHLOROthiazide 25 MG TABLET PO SCH (09:37)
--- NOTE | 2017-01-24 12:39 | Physician Query Form ---
CLICK EDIT DOCUMENT TO SELECT QUERY ANSWER --> OK --> SIGN Trang Simon RN Clinical Technical Communicator W) [phone] (f) [phone] [email or web address]: Make your selection(s) from the choices in EACH section by typing an "x" and enter comments in the comment section. Please use your independent medical judgment in providing your response. This request does not imply that any particular answer is desired or expected. CLINICAL INDICATORS: (Providers should not edit this section) Pt. admitted with acute small cell carcinoma of the lung. Based on documentation of "Pt's family states he is on home O2 @ 3L [place]". Based on the above, could you clarify the appropriate diagnosis, if significant , that supports the above abnormalities and additional evaluation, monitoring, and/or treatment rendered: ( x) Pt. has chronic respiratory failure ( ) Pt. does not have chronic respiratory failure ( ) Other, please specify: ( ) Clinically unable to determine COMMENTS: PLEASE ALSO DOCUMENT RESPONSE IN PROGRESS NOTES AND/OR DISCHARGE SUMMARY Use of terms such as suspected, likely, or probable (associated with a specific diagnosis that is being evaluated, monitored, or treated as if it exists) are acceptable and can be restated in the discharge summary if not ruled out. MTDD
[2017-01-24] MEDS: TOPOTECAN IV SCH (14:03)
[2017-01-24] MEDS: SODIUM CHLORIDE 0.9% IV SCH (14:03)
[2017-01-24] MEDS: INSULIN REGULAR 100 UNIT/ML SUBCUT SCH (17:16)
[2017-01-24] MEDS: amLODIPine 5 MG TABLET PO SCH (20:24)
[2017-01-24] MEDS: sitaGLIPtin 100 MG TABLET PO SCH (20:25)
[2017-01-24] MEDS: LORATADINE 10 MG TABLET PO SCH (20:26)
[2017-01-24] MEDS: POTASSIUM GLUCONATE 500 MG TABLET PO SCH (20:27)
[2017-01-24] MEDS: DILTIAZEM CD 120 MG CAPSULE PO SCH (20:27)
[2017-01-24] MEDS: predniSONE 10 MG TABLET PO SCH (20:28)
[2017-01-24] MEDS: TEMAZEPAM 7.5 MG CAPSULE PO PRN (20:28)
[2017-01-24] MEDS: VANCOMYCIN INJ 1,500 MG in SODIUM CHLORIDE 0.9% 500 ML IV SCH (20:30)
[2017-01-24] MEDS: guaiFENesin 200 MG/10 ML UDCUP PO PRN (23:37)
[2017-01-25] MEDS: HYDROcodone/HOMATROPINE 5 ML UDCUP PO PRN ×4 (04:30→20:03)
[2017-01-25 05:29] LABS: Basophils % 0.1 % (0.0-0.8); Eosinophils % 0.1 % (0.00-10.9); Hematocrit 24.8 VOL% (42.0-52.0); Hemoglobin 8.3 GM/DL (14.0-18.0); Immature Granulocytes Absolute 0.51 #; Lymphocytes # 0.4 10*3/uL (1.4-4.0); Lymphocytes % 2.2 % (21.2-54.2); Mean Corpuscular HGB Conc 33.5 GM/DL (32-36); Mean Corpuscular Hemoglobin 31 PG (27-34); Mean Corpuscular Volume 91.5 FL (87-102); Mean Platelet Volume 10.7 FL (9.6-12.0); Monocytes # 0.3 10*3/uL (0.11-0.8); Monocytes % 1.8 % (1.7-12.7); Neutrophils # 15.5 10*3/uL (1.4-7.4); Neutrophils % 92.8 % (38.7-73.9); Red Blood Count 2.71 MC/CUMM (3.8-5.5); Red Cell Distribution Width 18.3 % (9.3-17.3)
[2017-01-25 05:33] LABS: Platelet Count 66 T/CUMM (130-400); White Blood Count 16.8 T/CUMM (4-12)
[2017-01-25 05:50] LABS: Calcium 8.1 MG/DL (8.5-10.1); Magnesium 1.9 MG/DL (1.8-2.4); Osmolality,Calculated 271.4 MOS/KG (273-304); Potassium 3.1 MMOL/L (3.5-5.1)
[2017-01-25 07:36] LABS: Band Neutrophils 2 % (0-10); Lymphocytes 4 % (20-55); Segmented Neutrophils 92 % (50-85); Total Cells Counted 100
[2017-01-25 07:37] LABS: Hypochromasia 1+; Macrocytosis Slight; Platelet Estimate Decreased
[2017-01-25] MEDS: INSULIN REGULAR 100 UNIT/ML SUBCUT SCH ×2 (08:08→16:38)
[2017-01-25] MEDS ORDERED: PALONOSETRON 0.25 MG/5 ML VIAL IV PRN (08:33)
--- NOTE | 2017-01-25 08:43 | Oncology Progress Note ---
Assessment and Plan (1) Small cell carcinoma of lung Status: Acute Assessment and plan: The patient will be covered with antibiotics though in in all likelihood his primary underlying problem is the progressive metastatic small cell lung cancer. We will discuss chemotherapy for later this week and continue to attempt the 5 remaining treatments of radiotherapy. Current Visit: No Oncology Subjective PN Interval history: Patient remained stable overnight. Respiratory status requiring 3 L of O2. He was up in the chair for a significant portion during the day. There are plans for his family to bring his walker from his residence to the hospital to assist with ambulation. His labs are notable for hypokalemia with supplementation ordered today. He also has worsening thrombocytopenia and anemia. This is likely a treatment effect from radiation and chemo though I will check DIC parameters. Day 3 of 5 planned days of chemotherapy ongoing. Blood cultures yesterday were positive one set for SHIMA. This was repeated yesterday. He has not had fever and his lung mullins were actually improved based on admission CT chest. This may be a contaminant but I will continue antibiotics until the next set of blood cultures results were obtained He will also likely require red blood cell transfusion within the next 24-48 hours. He has no peripheral edema. His blood glucoses have been acceptable over the last 24 hours at around 130. No wheezes or acute distress physical examination. Blood pressure has been labile. Exam - Constitutional Vitals: Period Temp Pulse Resp BP Sys/Carrero Pulse Ox Last 24 Hr 96.9 F-98.1 F 84-120 18-22 126-169/76-105 91-98 Results - Labs CBC & BMP: 01/25/17 04:20 01/25/17 04:20
[2017-01-25] MEDS: hydroCHLOROthiazide 25 MG TABLET PO SCH (09:04)
[2017-01-25] MEDS: VANCOMYCIN INJ 1,500 MG in SODIUM CHLORIDE 0.9% 500 ML IV SCH (09:05)
[2017-01-25] MEDS: POTASSIUM CHLORIDE RIDER 20 MEQ in PREMIX 1 EACH IV SCH ×3 (10:07→14:11)
[2017-01-25] MEDS: PIPERACILLIN/TAZOBACTAM 3,375 MG in SODIUM CHLORIDE 0.9% 100 ML IV SCH ×2 (11:26→19:57)
[2017-01-25] MEDS: TOPOTECAN IV SCH (16:35)
[2017-01-25] MEDS: SODIUM CHLORIDE 0.9% IV SCH (16:35)
[2017-01-25] MEDS: TEMAZEPAM 7.5 MG CAPSULE PO PRN (20:01)
[2017-01-25] MEDS: ALPRAZolam 0.25 MG TABLET PO PRN (20:01)
[2017-01-25] MEDS: sitaGLIPtin 100 MG TABLET PO SCH (20:02)
[2017-01-25] MEDS: LORATADINE 10 MG TABLET PO SCH (20:02)
[2017-01-25] MEDS: DILTIAZEM CD 120 MG CAPSULE PO SCH (20:02)
[2017-01-25] MEDS: amLODIPine 5 MG TABLET PO SCH (20:02)
[2017-01-25] MEDS: predniSONE 10 MG TABLET PO SCH (20:02)
[2017-01-25] MEDS: POTASSIUM GLUCONATE 500 MG TABLET PO SCH (20:02)
[2017-01-26] MEDS: VANCOMYCIN INJ 1,500 MG in SODIUM CHLORIDE 0.9% 500 ML IV SCH ×3 (00:01→13:13)
[2017-01-26] MEDS: HYDROcodone/HOMATROPINE 5 ML UDCUP PO PRN ×6 (00:10→23:21)
[2017-01-26] MEDS: PIPERACILLIN/TAZOBACTAM 3,375 MG in SODIUM CHLORIDE 0.9% 100 ML IV SCH ×2 (04:16→13:10)
[2017-01-26 06:00] LABS: Basophils % 0.2 % (0.0-0.8); Eosinophils % 0.3 % (0.00-10.9); Hematocrit 24.3 VOL% (42.0-52.0); Hemoglobin 7.9 GM/DL (14.0-18.0); Immature Granulocytes % 6.1 %; Immature Granulocytes Absolute 0.65 #; Lymphocytes # 0.3 10*3/uL (1.4-4.0); Lymphocytes % 2.9 % (21.2-54.2); Mean Corpuscular HGB Conc 32.5 GM/DL (32-36); Mean Corpuscular Hemoglobin 30 PG (27-34); Mean Corpuscular Volume 92.7 FL (87-102); Mean Platelet Volume 10.3 FL (9.6-12.0); Monocytes # 0.1 10*3/uL (0.11-0.8); Monocytes % 1.3 % (1.7-12.7); Neutrophils # 9.4 10*3/uL (1.4-7.4); Neutrophils % 89.2 % (38.7-73.9); Platelet Count 51 T/CUMM (130-400); Red Blood Count 2.62 MC/CUMM (3.8-5.5); Red Cell Distribution Width 17.7 % (9.3-17.3); White Blood Count 10.6 T/CUMM (4-12)
[2017-01-26 06:04] LABS: PT Patient Result 10.2 SECS
[2017-01-26 06:22] LABS: Band Neutrophils 4 % (0-10); Hypochromasia 1+; Lymphocytes 5 % (20-55); Segmented Neutrophils 90 % (50-85); Total Cells Counted 100
[2017-01-26 06:23] LABS: Anisocytosis 1+
[2017-01-26 06:24] LABS: Macrocytosis 1+; Platelet Estimate Decreased
[2017-01-26 06:33] LABS: Calcium 8.2 MG/DL (8.5-10.1); Magnesium 1.9 MG/DL (1.8-2.4); Osmolality,Calculated 268.4 MOS/KG (273-304); Potassium 3.2 MMOL/L (3.5-5.1)
[2017-01-26] MEDS: INSULIN REGULAR 100 UNIT/ML SUBCUT SCH ×2 (07:55→18:06)
[2017-01-26] MEDS ORDERED: HEPARIN LOCK FLUSH 500 UNIT/5 ML SYRINGE IV ONE (08:27)
[2017-01-26] MEDS: hydroCHLOROthiazide 25 MG TABLET PO SCH (08:34)
[2017-01-26] MEDS ORDERED: SODIUM CHLORIDE 0.9% 250 ML IV PRN (08:39)
--- NOTE | 2017-01-26 08:43 | Oncology Progress Note ---
Assessment and Plan (1) Small cell carcinoma of lung Status: Acute Assessment and plan: The patient will be covered with antibiotics though in in all likelihood his primary underlying problem is the progressive metastatic small cell lung cancer. We will discuss chemotherapy for later this week and continue to attempt the 5 remaining treatments of radiotherapy. Current Visit: No Oncology Subjective PN Interval history: Repeat blood cultures appear negative. No fever nontoxic-appearing abdomen is obese but nontender. No respiratory distress at this time. Plans for 2 units of red blood cells. Fibrinogen is elevated. Continuing to watch platelets. We will begin Neupogen on Sunday after completion of his chemotherapy. Exam - Constitutional Vitals: Period Temp Pulse Resp BP Sys/Carrero Pulse Ox Last 24 Hr 97.1 F-97.8 F 89-124 18-18 136-173/86-99 90-94 Results - Labs CBC & BMP: 01/26/17 05:25 01/26/17 05:25
[2017-01-26] MEDS: POTASSIUM CHLORIDE RIDER 20 MEQ in PREMIX 1 EACH IV SCH ×2 (10:47→18:28)
[2017-01-26] MEDS: SODIUM CHLORIDE 0.9% IV SCH (12:13)
[2017-01-26] MEDS: TOPOTECAN IV SCH (12:13)
[2017-01-26] MEDS ORDERED: POTASSIUM CHLORIDE RIDER 100 ML IV ONE (17:48)
[2017-01-26] MEDS: ACETAMINOPHEN 325 MG TABLET PO PRN (18:08)
[2017-01-26] MEDS: LACTULOSE 20 GM/30 ML UDCUP PO PRN (18:08)
[2017-01-26] MEDS ORDERED: POTASSIUM CHLORIDE RIDER 20 MEQ in PREMIX 1 EACH IV SCH (18:30)
[2017-01-26] MEDS: predniSONE 10 MG TABLET PO SCH (20:37)
[2017-01-26] MEDS: POTASSIUM GLUCONATE 500 MG TABLET PO SCH (20:37)
[2017-01-26] MEDS: DILTIAZEM CD 120 MG CAPSULE PO SCH (20:37)
[2017-01-26] MEDS: amLODIPine 5 MG TABLET PO SCH (20:37)
[2017-01-26] MEDS: LORATADINE 10 MG TABLET PO SCH (20:37)
[2017-01-26] MEDS: sitaGLIPtin 100 MG TABLET PO SCH (20:37)
[2017-01-26] MEDS: guaiFENesin 200 MG/10 ML UDCUP PO PRN (21:32)
[2017-01-26] MEDS: TEMAZEPAM 7.5 MG CAPSULE PO PRN (23:58)
[2017-01-27] MEDS: PIPERACILLIN/TAZOBACTAM 3,375 MG in SODIUM CHLORIDE 0.9% 100 ML IV SCH ×4 (00:04→18:01)
[2017-01-27] MEDS: VANCOMYCIN INJ 1,500 MG in SODIUM CHLORIDE 0.9% 500 ML IV SCH ×3 (01:03→11:19)
[2017-01-27] MEDS ORDERED: POTASSIUM CHLORIDE RIDER 20 MEQ in PREMIX 1 EACH IV SCH (03:00)
[2017-01-27 05:29] LABS: Basophils % 0.6 % (0.0-0.8); Eosinophils % 0.5 % (0.00-10.9); Hematocrit 26.4 VOL% (42.0-52.0); Hemoglobin 8.9 GM/DL (14.0-18.0); Immature Granulocytes % 9.8 %; Immature Granulocytes Absolute 0.65 #; Lymphocytes # 0.2 10*3/uL (1.4-4.0); Lymphocytes % 3.3 % (21.2-54.2); Mean Corpuscular HGB Conc 33.7 GM/DL (32-36); Mean Corpuscular Hemoglobin 31 PG (27-34); Mean Corpuscular Volume 90.4 FL (87-102); Mean Platelet Volume 9.8 FL (9.6-12.0); Monocytes # 0.1 10*3/uL (0.11-0.8); Monocytes % 1.4 % (1.7-12.7); Neutrophils # 5.6 10*3/uL (1.4-7.4); Neutrophils % 84.4 % (38.7-73.9); Red Blood Count 2.92 MC/CUMM (3.8-5.5); White Blood Count 6.6 T/CUMM (4-12)
[2017-01-27 05:36] LABS: Platelet Count 32 T/CUMM (130-400)
[2017-01-27 05:47] LABS: Magnesium 1.5 MG/DL (1.8-2.4); Osmolality,Calculated 269.4 MOS/KG (273-304); Potassium 3.4 MMOL/L (3.5-5.1)
[2017-01-27] MEDS: guaiFENesin 200 MG/10 ML UDCUP PO PRN ×2 (06:57→20:28)
[2017-01-27] MEDS: INSULIN REGULAR 100 UNIT/ML SUBCUT SCH ×2 (08:38→17:02)
[2017-01-27] MEDS: hydroCHLOROthiazide 25 MG TABLET PO SCH (08:39)
[2017-01-27] MEDS: HYDROcodone/HOMATROPINE 5 ML UDCUP PO PRN ×4 (08:42→23:15)
[2017-01-27] MEDS ORDERED: MAGNESIUM SULF RIDER 4 GM in PREMIX 1 EACH IV ONE (12:59)
--- NOTE | 2017-01-27 13:04 | Oncology Progress Note ---
Assessment and Plan (1) Small cell carcinoma of lung Status: Acute Assessment and plan: The patient will be covered with antibiotics though in in all likelihood his primary underlying problem is the progressive metastatic small cell lung cancer. We will discuss chemotherapy for later this week and continue to attempt the 5 remaining treatments of radiotherapy. Current Visit: No Oncology Subjective PN Interval history: Metastatic small cell lung cancer patient has completed cycle 1 Toprol T can today. Neupogen is scheduled to begin tomorrow. His thrombocytopenia is moderate to severe at this time and we will continue daily monitoring. He will probably need platelet transfusion tomorrow. He is not on any type of pharmacologic anticoagulant due to his history of hemoptysis. He denies nausea or vomiting. His cough did seem somewhat worse today with clear sputum noted at the bedside. I will check chest x-ray in the morning. He appears afebrile. I am discontinuing his vancomycin as I feel his original blood culture was probably a contaminant. He remains on broad-spectrum penicillin. Magnesium supplementation for today. Exam - Constitutional Vitals: Period Temp Pulse Resp BP Sys/Carrero Pulse Ox Last 24 Hr 96.3 F-100.6 F 97-125 16-20 126-168/65-99 90-98 Results - Labs CBC & BMP: 01/27/17 03:38 01/27/17 03:38
[2017-01-27] MEDS: SODIUM CHLORIDE 0.9% IV SCH (13:07)
[2017-01-27] MEDS: TOPOTECAN IV SCH (13:07)
[2017-01-27] MEDS: ALBUTEROL/IPRATROPIUM 3 ML NEB RESP TX SCH ×2 (13:24→20:02)
[2017-01-27] MEDS: LACTULOSE 20 GM/30 ML UDCUP PO PRN (17:08)
[2017-01-27] MEDS: sitaGLIPtin 100 MG TABLET PO SCH (20:28)
[2017-01-27] MEDS: DILTIAZEM CD 120 MG CAPSULE PO SCH (20:29)
[2017-01-27] MEDS: amLODIPine 5 MG TABLET PO SCH (20:30)
[2017-01-27] MEDS: predniSONE 10 MG TABLET PO SCH (20:31)
[2017-01-27] MEDS: LORATADINE 10 MG TABLET PO SCH (20:31)
[2017-01-27] MEDS: POTASSIUM GLUCONATE 500 MG TABLET PO SCH (20:32)
[2017-01-27] MEDS: ALPRAZolam 0.25 MG TABLET PO PRN (20:36)
[2017-01-28] MEDS: ALBUTEROL/IPRATROPIUM 3 ML NEB RESP TX SCH ×4 (00:43→20:04)
[2017-01-28] MEDS: PIPERACILLIN/TAZOBACTAM 3,375 MG in SODIUM CHLORIDE 0.9% 100 ML IV SCH ×3 (01:18→17:23)
[2017-01-28] MEDS ORDERED: HEPARIN LOCK FLUSH 500 UNIT/5 ML SYRINGE IV ONE ×2 (02:33→17:18)
[2017-01-28] MEDS: ALPRAZolam 0.25 MG TABLET PO PRN (03:23)
[2017-01-28 05:06] LABS: Calcium 8.1 MG/DL (8.5-10.1); Magnesium 2.1 MG/DL (1.8-2.4); Osmolality,Calculated 267.7 MOS/KG (273-304); Potassium 3.3 MMOL/L (3.5-5.1)
[2017-01-28 05:14] LABS: Eosinophils % 0.3 % (0.00-10.9); Hematocrit 26.3 VOL% (42.0-52.0); Hemoglobin 8.8 GM/DL (14.0-18.0); Immature Granulocytes % 8.3 %; Immature Granulocytes Absolute 0.25 #; Lymphocytes # 0.1 10*3/uL (1.4-4.0); Lymphocytes % 4.7 % (21.2-54.2); Mean Corpuscular HGB Conc 33.5 GM/DL (32-36); Mean Corpuscular Hemoglobin 30 PG (27-34); Mean Corpuscular Volume 90.7 FL (87-102); Mean Platelet Volume 9.3 FL (9.6-12.0); Monocytes # 0.1 10*3/uL (0.11-0.8); Monocytes % 1.7 % (1.7-12.7); Neutrophils # 2.5 10*3/uL (1.4-7.4); Red Cell Distribution Width 16.9 % (9.3-17.3)
[2017-01-28 05:21] LABS: Platelet Count 22 T/CUMM (130-400)
[2017-01-28 07:34] LABS: Band Neutrophils 2 % (0-10); Hypochromasia 2+; Lymphocytes 6 % (20-55); Microcytosis 2+; Platelet Estimate Decreased; Segmented Neutrophils 89 % (50-85); Total Cells Counted 100
[2017-01-28] MEDS: hydroCHLOROthiazide 25 MG TABLET PO SCH (08:43)
[2017-01-28] MEDS: FILGRASTIM-SNDZ 300 MCG/0.5 ML SYRINGE SUBCUT SCH (08:44)
[2017-01-28] MEDS: INSULIN REGULAR 100 UNIT/ML SUBCUT SCH ×2 (08:44→17:24)
[2017-01-28] MEDS: HYDROcodone/HOMATROPINE 5 ML UDCUP PO PRN ×3 (08:46→17:24)
--- NOTE | 2017-01-28 09:06 | XRay Report ---
XR chest 1V portable Indication: Lung cancer Comparison: 21 January 2017 Findings: The heart and mediastinum are stable in size and configuration. Right internal jugular Port-A-Cath is unchanged in position. The pulmonary vascularity is normal in caliber. Left lung increased density is similar to previous exam. No other lung infiltrates, effusions, pneumothorax or other abnormality is demonstrated. Impression: No significant changes. PROCEDURE INTERPRETED AT [facility] DEPARTMENT OF RADIOLOGY Final Report Signed by: Dr. Te Castillo
[2017-01-28] MEDS ORDERED: SODIUM CHLORIDE 0.9% 250 ML IV PRN (11:21)
--- NOTE | 2017-01-28 11:24 | Oncology Progress Note ---
Assessment and Plan (1) Small cell carcinoma of lung Status: Acute Assessment and plan: The patient will be covered with antibiotics though in in all likelihood his primary underlying problem is the progressive metastatic small cell lung cancer. We will discuss chemotherapy for later this week and continue to attempt the 5 remaining treatments of radiotherapy. Current Visit: No Oncology Subjective PN Interval history: Patient has completed chemotherapy and appears in no acute distress. We will transfuse platelets today for chemotherapy related thrombocytopenia and also ongoing hemoptysis. He is now receiving nebulized albuterol and is breathing comfortable without wheeze or crackles. We have discussed discharge hopefully later in the week. Exam - Constitutional Vitals: Period Temp Pulse Resp BP Sys/Carrero Pulse Ox Last 24 Hr 97.1 F-99.3 F 77-120 16-22 132-165/72-88 90-98 Results - Labs CBC & BMP: 01/28/17 02:22 01/28/17 02:22
[2017-01-28] MEDS: POTASSIUM CHLORIDE 8 MEQ CAPSULE PO SCH ×2 (13:03→21:10)
[2017-01-28] MEDS: MAGNESIUM HYDROXIDE SUSP 30 ML UDCUP PO PRN (13:04)
[2017-01-28] MEDS: sitaGLIPtin 100 MG TABLET PO SCH (21:10)
[2017-01-28] MEDS: LORATADINE 10 MG TABLET PO SCH (21:10)
[2017-01-28] MEDS: amLODIPine 5 MG TABLET PO SCH (21:10)
[2017-01-28] MEDS: POTASSIUM GLUCONATE 500 MG TABLET PO SCH (21:10)
[2017-01-28] MEDS: DILTIAZEM CD 120 MG CAPSULE PO SCH (21:10)
[2017-01-28] MEDS: predniSONE 10 MG TABLET PO SCH (21:10)
[2017-01-28] MEDS: guaiFENesin 200 MG/10 ML UDCUP PO PRN (21:11)
[2017-01-29] MEDS: HYDROcodone/HOMATROPINE 5 ML UDCUP PO PRN ×4 (00:10→21:25)
[2017-01-29] MEDS: ALBUTEROL/IPRATROPIUM 3 ML NEB RESP TX SCH ×4 (01:02→20:22)
[2017-01-29] MEDS: PIPERACILLIN/TAZOBACTAM 3,375 MG in SODIUM CHLORIDE 0.9% 100 ML IV SCH ×3 (01:07→16:13)
[2017-01-29 07:10] LABS: Calcium 8.3 MG/DL (8.5-10.1); Osmolality,Calculated 266.7 MOS/KG (273-304); Potassium 3.5 MMOL/L (3.5-5.1)
[2017-01-29 07:32] LABS: Basophils % 1.3 % (0.0-0.8); Hematocrit 24.3 VOL% (42.0-52.0); Hemoglobin 8.1 GM/DL (14.0-18.0); Immature Granulocytes % 30.3 %; Immature Granulocytes Absolute 0.46 #; Lymphocytes # 0.2 10*3/uL (1.4-4.0); Lymphocytes % 12.5 % (21.2-54.2); Mean Corpuscular HGB Conc 33.3 GM/DL (32-36); Mean Corpuscular Hemoglobin 31 PG (27-34); Mean Corpuscular Volume 91.4 FL (87-102); Mean Platelet Volume 11.3 FL (9.6-12.0); Monocytes % 2.6 % (1.7-12.7); Neutrophils # 0.8 10*3/uL (1.4-7.4); Neutrophils % 53.3 % (38.7-73.9); Red Blood Count 2.66 MC/CUMM (3.8-5.5); Red Cell Distribution Width 16.4 % (9.3-17.3)
[2017-01-29 07:33] LABS: White Blood Count 1.5 T/CUMM (4-12)
[2017-01-29 07:34] LABS: Platelet Count 32 T/CUMM (130-400)
[2017-01-29] MEDS: INSULIN REGULAR 100 UNIT/ML SUBCUT SCH ×2 (07:48→16:59)
--- NOTE | 2017-01-29 08:21 | Oncology Progress Note ---
Assessment and Plan (1) Small cell carcinoma of lung Status: Acute Assessment and plan: The patient will be covered with antibiotics though in in all likelihood his primary underlying problem is the progressive metastatic small cell lung cancer. We will discuss chemotherapy for later this week and continue to attempt the 5 remaining treatments of radiotherapy. Current Visit: No Oncology Subjective PN Interval history: No change in last 24 hours. Platelets are's stable today around 32 after yesterday's transfusion. He remains on 2 L of O2 with no respiratory distress. He has no orthopnea or evidence of paroxysmal nocturnal dyspnea. We will begin prepping for discharge later this week. Exam - Constitutional Vitals: Period Temp Pulse Resp BP Sys/Carrero Pulse Ox Last 24 Hr 96.7 F-100.6 F 86-129 14-20 120-170/69-86 90-100 Results - Labs CBC & BMP: 01/29/17 04:15 01/29/17 06:16
[2017-01-29 08:22] LABS: Band Neutrophils 1 % (0-10); Eosinophils 2 % (0-10); Hypochromasia 1+; Lymphocytes 10 % (20-55); Microcytosis 1+; Segmented Neutrophils 83 % (50-85); Total Cells Counted 100
[2017-01-29 08:23] LABS: Platelet Estimate Decreased
[2017-01-29] MEDS: POTASSIUM CHLORIDE 8 MEQ CAPSULE PO SCH ×2 (08:47→21:22)
[2017-01-29] MEDS: FILGRASTIM-SNDZ 300 MCG/0.5 ML SYRINGE SUBCUT SCH (08:47)
[2017-01-29] MEDS: hydroCHLOROthiazide 25 MG TABLET PO SCH (08:47)
[2017-01-29] MEDS: LACTULOSE 20 GM/30 ML UDCUP PO PRN (08:48)
[2017-01-29] MEDS: LACTULOSE 20 GM/30 ML UDCUP PO SCH ×2 (09:01→11:33)
[2017-01-29] MEDS: amLODIPine 5 MG TABLET PO SCH (21:23)
[2017-01-29] MEDS: predniSONE 10 MG TABLET PO SCH (21:23)
[2017-01-29] MEDS: DILTIAZEM CD 120 MG CAPSULE PO SCH (21:23)
[2017-01-29] MEDS: sitaGLIPtin 100 MG TABLET PO SCH (21:23)
[2017-01-29] MEDS: LORATADINE 10 MG TABLET PO SCH (21:24)
[2017-01-29] MEDS: ALPRAZolam 0.25 MG TABLET PO PRN (21:24)
[2017-01-29] MEDS: POTASSIUM GLUCONATE 500 MG TABLET PO SCH (21:31)
[2017-01-30] MEDS: ALBUTEROL/IPRATROPIUM 3 ML NEB RESP TX SCH ×4 (00:28→19:43)
[2017-01-30] MEDS: PIPERACILLIN/TAZOBACTAM 3,375 MG in SODIUM CHLORIDE 0.9% 100 ML IV SCH ×3 (00:35→16:43)
[2017-01-30] MEDS: ACETAMINOPHEN 325 MG TABLET PO PRN ×2 (01:03→21:19)
[2017-01-30 03:05] LABS: Calcium 8.5 MG/DL (8.5-10.1); Osmolality,Calculated 266.8 MOS/KG (273-304); Potassium 3.6 MMOL/L (3.5-5.1)
[2017-01-30 07:14] LABS: Hematocrit 21.4 VOL% (42.0-52.0); Hemoglobin 7.1 GM/DL (14.0-18.0); Immature Granulocytes % 7.3 %; Immature Granulocytes Absolute 0.03 #; Lymphocytes # 0.1 10*3/uL (1.4-4.0); Lymphocytes % 26.8 % (21.2-54.2); Mean Corpuscular HGB Conc 33.2 GM/DL (32-36); Mean Corpuscular Hemoglobin 30 PG (27-34); Mean Corpuscular Volume 90.7 FL (87-102); Mean Platelet Volume 11.4 FL (9.6-12.0); Monocytes % 4.9 % (1.7-12.7); Neutrophils # 0.3 10*3/uL (1.4-7.4); Red Blood Count 2.36 MC/CUMM (3.8-5.5); Red Cell Distribution Width 16.1 % (9.3-17.3)
[2017-01-30 07:26] LABS: Platelet Count 18 T/CUMM (130-400); White Blood Count 0.4 T/CUMM (4-12)
[2017-01-30 07:34] LABS: Hypochromasia 2+; Lymphocytes 20 % (20-55); Microcytosis 1+; Platelet Estimate Decreased; Segmented Neutrophils 80 % (50-85); Total Cells Counted 100
--- NOTE | 2017-01-30 08:19 | Oncology Progress Note ---
Assessment and Plan (1) Small cell carcinoma of lung Status: Acute Assessment and plan: The patient will be covered with antibiotics though in in all likelihood his primary underlying problem is the progressive metastatic small cell lung cancer. We will discuss chemotherapy for later this week and continue to attempt the 5 remaining treatments of radiotherapy. Current Visit: No Oncology Subjective PN Interval history: Events overnight include fever spike with chills. Blood cultures have been repeated. He is on broad-spectrum penicillin. Neutropenia is noted today from previous chemotherapy despite Neupogen. Patient also with anemia and thrombocytopenia with transfusions of each to be ordered. His respiratory status appears stable. Exam - Constitutional Vitals: Period Temp Pulse Resp BP Sys/Carrero Pulse Ox Last 24 Hr 97.0 F-103 F 82-127 16-20 122-155/72-87 89-100 Results - Labs CBC & BMP: 01/30/17 05:23 01/30/17 01:48
[2017-01-30] MEDS ORDERED: SODIUM CHLORIDE 0.9% 250 ML IV PRN (08:35)
[2017-01-30] MEDS: INSULIN REGULAR 100 UNIT/ML SUBCUT SCH ×2 (09:02→16:44)
[2017-01-30] MEDS: hydroCHLOROthiazide 25 MG TABLET PO SCH (09:03)
[2017-01-30] MEDS: FILGRASTIM-SNDZ 300 MCG/0.5 ML SYRINGE SUBCUT SCH (09:03)
[2017-01-30] MEDS: POTASSIUM CHLORIDE 8 MEQ CAPSULE PO SCH ×2 (09:03→21:13)
[2017-01-30] MEDS: HYDROcodone/HOMATROPINE 5 ML UDCUP PO PRN ×3 (09:05→16:44)
--- NOTE | 2017-01-30 10:38 | Physician Query Form ---
CLICK EDIT DOCUMENT TO SELECT QUERY ANSWER --> OK --> SIGN Trang Simon RN Clinical Insulation Extruder Operator W) [phone] (f) [phone] [email or web address] PROVIDERS: Make your selection(s) from the choices in EACH section by typing an "x" and enter comments in the comment section. Please use your independent medical judgment in providing your response. This request does not imply that any particular answer is desired or expected. CLINICAL INDICATORS: (Providers should not edit this section) Based on documentation of "Neutropenia is noted today from previous chemotherapy despite Neupogen". WBC=0.4, RBC=2.36, PLT=18. Based on the above, could you clarify the appropriate diagnosis, if significant , that supports the above abnormalities and additional evaluation, monitoring, and/or treatment rendered: (x ) Pt. has chemo-induced pancytopenia ( ) Pt. does not have chemo-induced pancytopenia ( ) Other, please specify: ( ) Clinically unable to determine COMMENTS: PLEASE ALSO DOCUMENT RESPONSE IN PROGRESS NOTES AND/OR DISCHARGE SUMMARY Use of terms such as suspected, likely, or probable (associated with a specific diagnosis that is being evaluated, monitored, or treated as if it exists) are acceptable and can be restated in the discharge summary if not ruled out. MTDD
[2017-01-30] MEDS: DILTIAZEM CD 120 MG CAPSULE PO SCH (21:13)
[2017-01-30] MEDS: POTASSIUM GLUCONATE 500 MG TABLET PO SCH (21:14)
[2017-01-30] MEDS: LORATADINE 10 MG TABLET PO SCH (21:14)
[2017-01-30] MEDS: predniSONE 10 MG TABLET PO SCH (21:15)
[2017-01-30] MEDS: amLODIPine 5 MG TABLET PO SCH (21:15)
[2017-01-30] MEDS: sitaGLIPtin 100 MG TABLET PO SCH (21:15)
[2017-01-30] MEDS: ALPRAZolam 0.25 MG TABLET PO PRN (21:19)
[2017-01-31] MEDS: PIPERACILLIN/TAZOBACTAM 3,375 MG in SODIUM CHLORIDE 0.9% 100 ML IV SCH ×3 (01:16→17:05)
[2017-01-31] MEDS: ALBUTEROL/IPRATROPIUM 3 ML NEB RESP TX SCH ×4 (01:21→20:15)
[2017-01-31] MEDS ORDERED: HEPARIN LOCK FLUSH 500 UNIT/5 ML SYRINGE IV ONE (03:53)
[2017-01-31] MEDS: HYDROcodone/HOMATROPINE 5 ML UDCUP PO PRN ×4 (05:04→20:32)
[2017-01-31 07:16] LABS: Hematocrit 24.1 VOL% (42.0-52.0); Hemoglobin 8.1 GM/DL (14.0-18.0); Immature Granulocytes % 12.5 %; Immature Granulocytes Absolute 0.02 #; Lymphocytes # 0.1 10*3/uL (1.4-4.0); Mean Corpuscular HGB Conc 33.6 GM/DL (32-36); Mean Corpuscular Hemoglobin 30 PG (27-34); Mean Corpuscular Volume 89.3 FL (87-102); Mean Platelet Volume 10.7 FL (9.6-12.0); Neutrophils # 0.1 10*3/uL (1.4-7.4); Neutrophils % 37.5 % (38.7-73.9); Red Cell Distribution Width 15.3 % (9.3-17.3)
[2017-01-31 07:30] LABS: Platelet Count 14 T/CUMM (130-400); White Blood Count 0.2 T/CUMM (4-12)
[2017-01-31 07:47] LABS: Calcium 8.8 MG/DL (8.5-10.1); Osmolality,Calculated 271.4 MOS/KG (273-304); Potassium 3.6 MMOL/L (3.5-5.1)
[2017-01-31 08:02] LABS: Lymphocytes 8 % (20-55); Segmented Neutrophils 92 % (50-85); Total Cells Counted 100
[2017-01-31 08:03] LABS: Hypochromasia 2+; Platelet Estimate Decreased; Polychromasia Slight
[2017-01-31] MEDS ORDERED: SODIUM CHLORIDE 0.9% 250 ML IV PRN (08:37)
--- NOTE | 2017-01-31 08:39 | Oncology Progress Note ---
Assessment and Plan (1) Small cell carcinoma of lung Status: Acute Assessment and plan: The patient will be covered with antibiotics though in in all likelihood his primary underlying problem is the progressive metastatic small cell lung cancer. We will discuss chemotherapy for later this week and continue to attempt the 5 remaining treatments of radiotherapy. Current Visit: No Oncology Subjective PN Interval history: The patient was febrile again overnight though appears nontoxic this morning. He denies chest pain or abdominal pain. Despite transfusion of both red blood cells and platelets yesterday, he remains thrombocytopenic today. I will give another unit of platelets. Would likely require red blood cells before the week is over. Remains on broad-spectrum penicillin with febrile neutropenia. Awaiting white blood cell count recovery with daily Neupogen. Exam - Constitutional Vitals: Period Temp Pulse Resp BP Sys/Carrero Pulse Ox Last 24 Hr 96.6 F-102.9 F 70-133 12-20 129-166/70-89 91-98 Results - Labs CBC & BMP: 01/31/17 04:50 01/31/17 04:50
[2017-01-31] MEDS: INSULIN REGULAR 100 UNIT/ML SUBCUT SCH ×2 (08:51→17:05)
[2017-01-31] MEDS: hydroCHLOROthiazide 25 MG TABLET PO SCH (08:52)
[2017-01-31] MEDS: POTASSIUM CHLORIDE 8 MEQ CAPSULE PO SCH ×2 (08:52→20:25)
[2017-01-31] MEDS: FILGRASTIM-SNDZ 300 MCG/0.5 ML SYRINGE SUBCUT SCH (08:52)
[2017-01-31] MEDS: POTASSIUM GLUCONATE 500 MG TABLET PO SCH (20:24)
[2017-01-31] MEDS: amLODIPine 5 MG TABLET PO SCH (20:25)
[2017-01-31] MEDS: sitaGLIPtin 100 MG TABLET PO SCH (20:25)
[2017-01-31] MEDS: DILTIAZEM CD 120 MG CAPSULE PO SCH (20:25)
[2017-01-31] MEDS: LORATADINE 10 MG TABLET PO SCH (20:26)
[2017-01-31] MEDS: predniSONE 10 MG TABLET PO SCH (20:26)
[2017-02-01] MEDS: ALBUTEROL/IPRATROPIUM 3 ML NEB RESP TX SCH ×4 (00:29→19:36)
[2017-02-01] MEDS: PIPERACILLIN/TAZOBACTAM 3,375 MG in SODIUM CHLORIDE 0.9% 100 ML IV SCH ×3 (00:44→17:15)
[2017-02-01] MEDS: HYDROcodone/HOMATROPINE 5 ML UDCUP PO PRN ×4 (05:13→21:43)
[2017-02-01 05:28] LABS: Calcium 8.7 MG/DL (8.5-10.1); Osmolality,Calculated 263.8 MOS/KG (273-304); Potassium 3.3 MMOL/L (3.5-5.1)
[2017-02-01 07:51] LABS: Hemoglobin 8.9 GM/DL (14.0-18.0); Lymphocytes # 0.1 10*3/uL (1.4-4.0); Lymphocytes % 81.3 % (21.2-54.2); Mean Corpuscular HGB Conc 34.2 GM/DL (32-36); Mean Corpuscular Hemoglobin 31 PG (27-34); Mean Platelet Volume 10.4 FL (9.6-12.0); Monocytes % 6.3 % (1.7-12.7); Neutrophils % 12.4 % (38.7-73.9); Red Blood Count 2.92 MC/CUMM (3.8-5.5)
[2017-02-01 07:59] LABS: White Blood Count 0.2 T/CUMM (4-12)
[2017-02-01 08:00] LABS: Platelet Count 17 T/CUMM (130-400)
[2017-02-01 08:21] LABS: Hypochromasia 1+; Lymphocytes 80 % (20-55); Microcytosis 1+; Platelet Estimate Decreased; Segmented Neutrophils 12 % (50-85); Total Cells Counted 100
[2017-02-01] MEDS ORDERED: SODIUM CHLORIDE 0.9% 250 ML IV PRN (08:24)
--- NOTE | 2017-02-01 08:27 | Oncology Progress Note ---
Assessment and Plan (1) Small cell carcinoma of lung Status: Acute Assessment and plan: The patient will be covered with antibiotics though in in all likelihood his primary underlying problem is the progressive metastatic small cell lung cancer. We will discuss chemotherapy for later this week and continue to attempt the 5 remaining treatments of radiotherapy. Current Visit: No Oncology Subjective PN Interval history: Extensive stage small cell lung cancer diagnosed approximately 3 months ago. The patient received 2 courses of front-line etoposide and carboplatinum. He had significant hot hemoptysis and did receive a partial course of left chest radiotherapy. A CT scan performed earlier this admission showed hepatic progression and he was changed to Toprol T can days 1 through 5 cycle #1. He completed that last week and we have been dealing with applications of pancytopenia since that time. He will need platelets again today for a level of 17. We could consider no transfusion if he were not having hemoptysis and were outpatient and ambulatory. However, none of these are the case at present. We will proceed with transfusion of platelets today. His red blood cells were appropriate. He has significant neutropenia and has been receiving daily Neupogen for quite some time. He is receiving Zosyn with no current positive blood cultures. His last fever was on the evening of January 30. He appears chronically ill but in no acute distress. There are some crackles of the left lung. His heart rate is 115. His O2 saturations were 98%. He was receiving a DuoNeb during my examination. Continue with Neupogen and other blood product support. Continue current antibiotics with low threshold to escalate antibiotics for any positive cultures or recurring fever. Exam - Constitutional Vitals: Period Temp Pulse Resp BP Sys/Carrero Pulse Ox Last 24 Hr 97.3 F-99.8 F 96-136 14-24 132-167/72-87 92-99 Results - Labs CBC & BMP: 02/01/17 04:00 02/01/17 04:00
[2017-02-01] MEDS: FILGRASTIM-SNDZ 300 MCG/0.5 ML SYRINGE SUBCUT SCH (09:09)
[2017-02-01] MEDS: hydroCHLOROthiazide 25 MG TABLET PO SCH (09:09)
[2017-02-01] MEDS: POTASSIUM CHLORIDE 8 MEQ CAPSULE PO SCH ×2 (09:09→21:36)
[2017-02-01] MEDS: INSULIN REGULAR 100 UNIT/ML SUBCUT SCH ×2 (09:10→17:57)
[2017-02-01] MEDS: ACETAMINOPHEN 325 MG TABLET PO PRN (10:53)
[2017-02-01] MEDS ORDERED: VANCOMYCIN INJ 1,000 MG in SODIUM CHLORIDE 0.9% 250 ML IV ONE (19:16)
[2017-02-01] MEDS: amLODIPine 5 MG TABLET PO SCH (21:36)
[2017-02-01] MEDS: sitaGLIPtin 100 MG TABLET PO SCH (21:36)
[2017-02-01] MEDS: predniSONE 10 MG TABLET PO SCH (21:36)
[2017-02-01] MEDS: LORATADINE 10 MG TABLET PO SCH (21:36)
[2017-02-01] MEDS: POTASSIUM GLUCONATE 500 MG TABLET PO SCH (21:36)
[2017-02-01] MEDS: ALPRAZolam 0.25 MG TABLET PO PRN (21:42)
[2017-02-01] MEDS: DILTIAZEM CD 120 MG CAPSULE PO SCH (21:57)
[2017-02-02] MEDS: ALBUTEROL/IPRATROPIUM 3 ML NEB RESP TX SCH ×4 (00:09→19:33)
[2017-02-02] MEDS: PIPERACILLIN/TAZOBACTAM 3,375 MG in SODIUM CHLORIDE 0.9% 100 ML IV SCH ×3 (01:24→16:51)
[2017-02-02 05:20] LABS: Calcium 8.5 MG/DL (8.5-10.1); Osmolality,Calculated 266.7 MOS/KG (273-304); Potassium 3.1 MMOL/L (3.5-5.1)
[2017-02-02 06:12] LABS: Hematocrit 19.8 VOL% (42.0-52.0); Hemoglobin 6.8 GM/DL (14.0-18.0); Lymphocytes # 0.1 10*3/uL (1.4-4.0); Mean Corpuscular HGB Conc 34.3 GM/DL (32-36); Mean Corpuscular Hemoglobin 30 PG (27-34); Mean Corpuscular Volume 88.4 FL (87-102); Mean Platelet Volume 11.7 FL (9.6-12.0); Platelet Count 18 T/CUMM (130-400); Red Blood Count 2.24 MC/CUMM (3.8-5.5); Red Cell Distribution Width 14.5 % (9.3-17.3)
[2017-02-02 06:18] LABS: White Blood Count 0.1 T/CUMM (4-12)
[2017-02-02] MEDS ORDERED: SODIUM CHLORIDE 0.9% 250 ML IV PRN ×2 (06:48→09:11)
[2017-02-02 07:21] LABS: Hypochromasia 1+; Lymphocytes 90 % (20-55); Microcytosis 1+; Platelet Estimate Decreased; Segmented Neutrophils 10 % (50-85); Total Cells Counted 100
[2017-02-02] MEDS: INSULIN REGULAR 100 UNIT/ML SUBCUT SCH ×2 (07:45→16:50)
--- NOTE | 2017-02-02 09:17 | Oncology Progress Note ---
Assessment and Plan - Time spent with patient Time spent with patient: Greater than 30 minutes (1) Neutropenic fever Status: Acute Current Visit: Yes (2) Thrombocytopenia Status: Acute Current Visit: Yes (3) Small cell carcinoma of lung Status: Acute Current Visit: No (4) Hemoptysis Status: Acute Current Visit: No (5) Anemia Status: Acute Current Visit: No (6) Hyponatremia Status: Acute Current Visit: No Oncology Subjective PN Interval history: Mr. Barlow remains pancytopenic. He did have a febrile episode last night up to 102 and was given 1 dose of vancomycin. His fever defervesced but he still has some chills today. I will place him on scheduled vancomycin. We will give him 2 units of blood and 1 unit of platelets today. We will continue with Neupogen. His prognosis remains very poor. He has significant oral candidiasis also give him a dose of Diflucan. I explained to him today that if he continues to decline will be very little we can do. He is DNR. Exam - Constitutional Vitals: Period Temp Pulse Resp BP Sys/Carrero Pulse Ox Last 24 Hr 97.7 F-102.5 F 86-142 18-22 120-145/60-90 83-97 General appearance: normal weight, mild distress - Head Head Exam: Present: normocephalic, atraumatic - Eye Eye Exam: Present: EOMI Pupils: Present: PERRL - ENT ENT exam: Present: normal exam, normal oropharynx - Neck Neck exam: Present: lymphadenopathy. Absent: thyromegaly - Respiratory Respiratory exam: Present: CTAB. Absent: wheezes - Cardiovascular Cardiovascular exam: Present: RRR, tachycardia. Absent: JVD - GI/Abdominal GI/Abdominal exam: Absent: ascites, distended, mass - Neurological Exam Neurological exam: Present: alert, oriented X3 - Psychiatric Psychiatric exam: Present: normal affect, normal mood - Skin Skin exam: Present: warm, dry Results - Labs CBC & BMP: 02/02/17 03:36 02/02/17 03:37 Lab Results: I have reviewed the past 24 hour labs
[2017-02-02] MEDS: FILGRASTIM-SNDZ 300 MCG/0.5 ML SYRINGE SUBCUT SCH (09:44)
[2017-02-02] MEDS: POTASSIUM CHLORIDE 8 MEQ CAPSULE PO SCH ×2 (09:46→20:36)
[2017-02-02] MEDS: LACTULOSE 20 GM/30 ML UDCUP PO PRN (09:47)
[2017-02-02] MEDS: hydroCHLOROthiazide 25 MG TABLET PO SCH (09:47)
[2017-02-02] MEDS: HYDROcodone/HOMATROPINE 5 ML UDCUP PO PRN ×2 (09:49→14:36)
[2017-02-02] MEDS ORDERED: FLUCONAZOLE INJ 400 MG in PREMIX 1 EACH IV ONE (10:00)
[2017-02-02] MEDS: VANCOMYCIN INJ 1,000 MG in SODIUM CHLORIDE 0.9% 250 ML IV SCH ×2 (13:07→21:10)
[2017-02-02] MEDS: LORATADINE 10 MG TABLET PO SCH (20:36)
[2017-02-02] MEDS: POTASSIUM GLUCONATE 500 MG TABLET PO SCH (20:36)
[2017-02-02] MEDS: DILTIAZEM CD 120 MG CAPSULE PO SCH (20:36)
[2017-02-02] MEDS: amLODIPine 5 MG TABLET PO SCH (20:36)
[2017-02-02] MEDS: predniSONE 10 MG TABLET PO SCH (20:37)
[2017-02-02] MEDS: sitaGLIPtin 100 MG TABLET PO SCH (20:37)
[2017-02-02] MEDS: ACETAMINOPHEN 325 MG TABLET PO PRN (20:37)
[2017-02-02] MEDS: ALPRAZolam 0.25 MG TABLET PO PRN (21:21)
[2017-02-02] MEDS: guaiFENesin 200 MG/10 ML UDCUP PO PRN (21:21)
[2017-02-03] MEDS: HYDROcodone/HOMATROPINE 5 ML UDCUP PO PRN ×4 (00:02→21:08)
[2017-02-03] MEDS: ALBUTEROL/IPRATROPIUM 3 ML NEB RESP TX SCH ×4 (00:03→19:19)
[2017-02-03] MEDS: PIPERACILLIN/TAZOBACTAM 3,375 MG in SODIUM CHLORIDE 0.9% 100 ML IV SCH ×3 (00:07→17:44)
[2017-02-03 05:08] LABS: Hemoglobin 8.3 GM/DL (14.0-18.0); Lymphocytes # 0.1 10*3/uL (1.4-4.0); Mean Corpuscular HGB Conc 34.6 GM/DL (32-36); Mean Corpuscular Hemoglobin 31 PG (27-34); Mean Corpuscular Volume 88.2 FL (87-102); Mean Platelet Volume 9.6 FL (9.6-12.0); Monocytes % 8.3 % (1.7-12.7); Neutrophils % 16.7 % (38.7-73.9); Red Blood Count 2.72 MC/CUMM (3.8-5.5); Red Cell Distribution Width 14.2 % (9.3-17.3)
[2017-02-03 05:12] LABS: Albumin 1.5 G/DL (3.4-5.0); Bilirubin,Total 1.8 MG/DL (0.2-1.0); Calcium 8.3 MG/DL (8.5-10.1); Magnesium 1.6 MG/DL (1.8-2.4); Osmolality,Calculated 265.7 MOS/KG (273-304); Potassium 2.8 MMOL/L (3.5-5.1); Total Protein 5.3 G/DL (6.4-8.3)
[2017-02-03 06:11] LABS: Platelet Count 18 T/CUMM (130-400); White Blood Count 0.1 T/CUMM (4-12)
[2017-02-03 06:36] LABS: Hypochromasia 2+; Lymphocytes 57 % (20-55); Metamyelocytes 29 %; Platelet Estimate Decreased; Segmented Neutrophils 14 % (50-85); Total Cells Counted 100
[2017-02-03] MEDS: POTASSIUM CHLORIDE 8 MEQ CAPSULE PO SCH ×2 (09:23→21:09)
[2017-02-03] MEDS: FILGRASTIM-SNDZ 300 MCG/0.5 ML SYRINGE SUBCUT SCH (09:23)
[2017-02-03] MEDS: VANCOMYCIN INJ 1,000 MG in SODIUM CHLORIDE 0.9% 250 ML IV SCH ×2 (09:23→21:12)
[2017-02-03] MEDS: hydroCHLOROthiazide 25 MG TABLET PO SCH (09:23)
[2017-02-03] MEDS: INSULIN REGULAR 100 UNIT/ML SUBCUT SCH ×2 (09:34→17:05)
[2017-02-03] MEDS ORDERED: MAGNESIUM SULF RIDER 2 GM in PREMIX 1 EACH IV ONE (10:23)
[2017-02-03] MEDS ORDERED: SODIUM CHLOR 0.45% KCL 20 MEQ 20 MEQ/1,000 ML BAG IV SCH (10:30)
--- NOTE | 2017-02-03 10:30 | Oncology Progress Note ---
Assessment and Plan (1) Neutropenic fever Status: Acute Current Visit: Yes (2) Thrombocytopenia Status: Acute Current Visit: Yes (3) Small cell carcinoma of lung Status: Acute Current Visit: No (4) Hemoptysis Status: Acute Current Visit: No (5) Anemia Status: Acute Current Visit: No (6) Hyponatremia Status: Acute Current Visit: No Oncology Subjective PN Interval history: 61-year-old white male with metastatic small cell lung cancer currently with pancytopenia secondary to chemotherapy and radiation. He is very ill and continues to have fevers. He is covered with broad-spectrum antibiotics and his cultures have been no growth. We are providing transfusions as needed. We have him on granulocytes stimulating factor with very little response at this point. We will continue broad-spectrum antibiotics. His prognosis is very poor and he is DNR. I will give him potassium and magnesium supplementation today via the IV. We will continue with Diflucan for candidal coverage. Exam - Constitutional Vitals: Period Temp Pulse Resp BP Sys/Carrero Pulse Ox Last 24 Hr 97.2 F-128 F 18-135 16-118 119-150/21-79 86-99 General appearance: normal weight, no acute distress - Head Head Exam: Present: normocephalic, atraumatic - Eye Eye Exam: Present: EOMI Pupils: Present: PERRL - ENT ENT exam: Present: normal exam, normal oropharynx - Neck Neck exam: Absent: lymphadenopathy, thyromegaly - Respiratory Respiratory exam: Present: CTAB. Absent: wheezes - Cardiovascular Cardiovascular exam: Present: RRR. Absent: JVD, systolic murmur - GI/Abdominal GI/Abdominal exam: Present: soft. Absent: ascites, distended, firm, mass - Neurological Exam Neurological exam: Present: alert, oriented X3 - Psychiatric Psychiatric exam: Present: normal affect, normal mood - Skin Skin exam: Present: warm, dry Results - Labs CBC & BMP: 02/03/17 04:00 02/03/17 04:00 Lab Results: I have reviewed the past 24 hour labs
[2017-02-03] MEDS: FLUCONAZOLE INJ 200 MG in PREMIX 1 EACH IV SCH (11:40)
[2017-02-03] MEDS ORDERED: HEPARIN LOCK FLUSH 500 UNIT/5 ML SYRINGE IV ONE (14:23)
[2017-02-03] MEDS: MAGNESIUM HYDROXIDE SUSP 30 ML UDCUP PO PRN (17:44)
[2017-02-03] MEDS: ACETAMINOPHEN 325 MG TABLET PO PRN (18:50)
[2017-02-03] MEDS: amLODIPine 5 MG TABLET PO SCH (21:09)
[2017-02-03] MEDS: DILTIAZEM CD 120 MG CAPSULE PO SCH (21:09)
[2017-02-03] MEDS: POTASSIUM GLUCONATE 500 MG TABLET PO SCH (21:10)
[2017-02-03] MEDS: LORATADINE 10 MG TABLET PO SCH (21:10)
[2017-02-03] MEDS: sitaGLIPtin 100 MG TABLET PO SCH (21:10)
[2017-02-03] MEDS: predniSONE 10 MG TABLET PO SCH (21:10)
[2017-02-04] MEDS: ALBUTEROL/IPRATROPIUM 3 ML NEB RESP TX SCH ×4 (00:10→19:01)
[2017-02-04] MEDS: PIPERACILLIN/TAZOBACTAM 3,375 MG in SODIUM CHLORIDE 0.9% 100 ML IV SCH ×3 (00:31→16:52)
[2017-02-04] MEDS: HYDROcodone/HOMATROPINE 5 ML UDCUP PO PRN ×4 (04:19→23:22)
[2017-02-04 05:33] LABS: Hematocrit 23.4 VOL% (42.0-52.0); Hemoglobin 8.2 GM/DL (14.0-18.0); Lymphocytes # 0.1 10*3/uL (1.4-4.0); Mean Corpuscular Hemoglobin 31 PG (27-34); Mean Corpuscular Volume 88.3 FL (87-102); Mean Platelet Volume 11.4 FL (9.6-12.0); Neutrophils # 0.1 10*3/uL (1.4-7.4); Red Blood Count 2.65 MC/CUMM (3.8-5.5); Red Cell Distribution Width 14.3 % (9.3-17.3)
[2017-02-04 05:36] LABS: Platelet Count 31 T/CUMM (130-400); White Blood Count 0.2 T/CUMM (4-12)
[2017-02-04 06:18] LABS: Albumin 1.6 G/DL (3.4-5.0); Bilirubin,Total 1.2 MG/DL (0.2-1.0); Calcium 8.3 MG/DL (8.5-10.1); Magnesium 2.2 MG/DL (1.8-2.4); Osmolality,Calculated 262.8 MOS/KG (273-304); Potassium 2.9 MMOL/L (3.5-5.1); Total Protein 5.5 G/DL (6.4-8.3)
[2017-02-04 06:38] LABS: Lymphocytes 60 % (20-55); Metamyelocytes 10 %; Segmented Neutrophils 20 % (50-85)
[2017-02-04 06:39] LABS: Platelet Estimate Decreased
[2017-02-04 06:40] LABS: Anisocytosis 1+; Hypochromasia 1+; Microcytosis 1+; Total Cells Counted 100
[2017-02-04] MEDS: INSULIN REGULAR 100 UNIT/ML SUBCUT SCH ×2 (08:09→16:52)
--- NOTE | 2017-02-04 08:44 | Oncology Progress Note ---
Assessment and Plan (1) Neutropenic fever Status: Acute Current Visit: Yes (2) Thrombocytopenia Status: Acute Current Visit: Yes (3) Small cell carcinoma of lung Status: Acute Current Visit: No (4) Hemoptysis Status: Acute Current Visit: No (5) Anemia Status: Acute Current Visit: No (6) Hyponatremia Status: Acute Current Visit: No Oncology Subjective PN Interval history: Mr. Barlow feels better today. He does not need any transfusions. His white count is still very low and he remains on Neupogen. He only had one episode of fever yesterday. He is eating this morning. His oral candidiasis has improved. They also state that his hemoptysis has improved as well. We will continue with IV fluids but I will convert him to normal saline given his developing hyponatremia. Since he has small cell lung cancer, will have to be cognizant of SIADH if his sodium level drops further on normal saline. Now that he is taking in some food by mouth hopefully he will not need any IV fluids after a couple more days. I still explained to them this morning that he is very sick and his prognosis remains very poor. His cancer is very aggressive and does not appear to be responding very well to therapy. His overall general poor physical condition complicates this as well. Exam - Constitutional Vitals: Period Temp Pulse Resp BP Sys/Carrero Pulse Ox Last 24 Hr 98 F-102.9 F 107-124 16-24 127-168/53-85 89-98 General appearance: normal weight, no acute distress - Head Head Exam: Present: normocephalic, atraumatic - Eye Eye Exam: Present: EOMI. Absent: scleral icterus Pupils: Present: PERRL - Neck Neck exam: Present: lymphadenopathy. Absent: thyromegaly - Respiratory Respiratory exam: Present: CTAB. Absent: decreased breath sounds, wheezes - Cardiovascular Cardiovascular exam: Present: tachycardia. Absent: JVD, RRR - GI/Abdominal GI/Abdominal exam: Present: soft. Absent: ascites, distended, mass - Neurological Exam Neurological exam: Present: alert, oriented X3 - Psychiatric Psychiatric exam: Present: normal affect, normal mood - Skin Skin exam: Present: warm, dry Results - Labs CBC & BMP: 02/04/17 04:00 02/04/17 04:00 Lab Results: I have reviewed the past 24 hour labs
[2017-02-04] MEDS: FILGRASTIM-SNDZ 300 MCG/0.5 ML SYRINGE SUBCUT SCH (08:57)
[2017-02-04] MEDS: VANCOMYCIN INJ 1,000 MG in SODIUM CHLORIDE 0.9% 250 ML IV SCH ×2 (08:57→21:29)
[2017-02-04] MEDS: SODIUM CHLOR 0.9% KCL 20 MEQ 20 MEQ/1,000 ML BAG IV SCH (08:57)
[2017-02-04] MEDS: hydroCHLOROthiazide 25 MG TABLET PO SCH (08:58)
[2017-02-04] MEDS: POTASSIUM CHLORIDE 8 MEQ CAPSULE PO SCH ×2 (08:58→21:28)
[2017-02-04] MEDS: MAGNESIUM HYDROXIDE SUSP 30 ML UDCUP PO PRN (08:58)
[2017-02-04] MEDS: FLUCONAZOLE INJ 200 MG in PREMIX 1 EACH IV SCH (11:37)
--- NOTE | 2017-02-04 21:02 | Order Completion Report ---
See report scanned to EMR
[2017-02-04] MEDS: POTASSIUM GLUCONATE 500 MG TABLET PO SCH (21:28)
[2017-02-04] MEDS: LORATADINE 10 MG TABLET PO SCH (21:28)
[2017-02-04] MEDS: amLODIPine 5 MG TABLET PO SCH (21:29)
[2017-02-04] MEDS: predniSONE 10 MG TABLET PO SCH (21:29)
[2017-02-04] MEDS: sitaGLIPtin 100 MG TABLET PO SCH (21:29)
[2017-02-04] MEDS: DILTIAZEM CD 120 MG CAPSULE PO SCH (21:29)
[2017-02-05] MEDS: ALBUTEROL/IPRATROPIUM 3 ML NEB RESP TX SCH ×4 (00:44→19:21)
[2017-02-05] MEDS: PIPERACILLIN/TAZOBACTAM 3,375 MG in SODIUM CHLORIDE 0.9% 100 ML IV SCH ×3 (01:20→17:17)
[2017-02-05] MEDS: SODIUM CHLOR 0.9% KCL 20 MEQ 20 MEQ/1,000 ML BAG IV SCH ×2 (01:26→13:15)
[2017-02-05 04:34] LABS: Hematocrit 21.9 VOL% (42.0-52.0); Hemoglobin 7.5 GM/DL (14.0-18.0); Lymphocytes # 0.1 10*3/uL (1.4-4.0); Lymphocytes % 29.6 % (21.2-54.2); Mean Corpuscular HGB Conc 34.2 GM/DL (32-36); Mean Corpuscular Hemoglobin 31 PG (27-34); Mean Corpuscular Volume 90.5 FL (87-102); Mean Platelet Volume 11.8 FL (9.6-12.0); Monocytes % 11.1 % (1.7-12.7); Neutrophils # 0.2 10*3/uL (1.4-7.4); Neutrophils % 59.3 % (38.7-73.9); Red Blood Count 2.42 MC/CUMM (3.8-5.5); Red Cell Distribution Width 14.6 % (9.3-17.3)
[2017-02-05 04:38] LABS: White Blood Count 0.3 T/CUMM (4-12)
[2017-02-05 04:39] LABS: Platelet Count 13 T/CUMM (130-400)
[2017-02-05 05:03] LABS: Albumin 1.3 G/DL (3.4-5.0); Calcium 8.5 MG/DL (8.5-10.1); Magnesium 2.2 MG/DL (1.8-2.4); Osmolality,Calculated 269.5 MOS/KG (273-304); Potassium 3.5 MMOL/L (3.5-5.1); Total Protein 5.2 G/DL (6.4-8.3)
[2017-02-05 05:22] LABS: Band Neutrophils 20 % (0-10); Lymphocytes 35 % (20-55); Metamyelocytes 10 %; Myelocytes 5 %; Platelet Estimate Decreased; Segmented Neutrophils 20 % (50-85); Total Cells Counted 100
[2017-02-05 05:23] LABS: Anisocytosis Slight; Macrocytosis Slight
[2017-02-05] MEDS ORDERED: SODIUM CHLORIDE 0.9% 250 ML IV PRN (07:46)
--- NOTE | 2017-02-05 07:51 | Oncology Progress Note ---
Assessment and Plan (1) Neutropenic fever Status: Acute Current Visit: Yes (2) Thrombocytopenia Status: Acute Current Visit: Yes (3) Small cell carcinoma of lung Status: Acute Current Visit: No (4) Hemoptysis Status: Acute Current Visit: No (5) Anemia Status: Acute Current Visit: No (6) Hyponatremia Status: Acute Current Visit: No Oncology Subjective PN Interval history: Mr. Barlow is lying in bed today. He is complaining that his nebulizer machine broke a while ago. Overall though he does not appear to be in any acute distress. His blood counts today have decreased back down so he received 2 units of blood and 1 unit of platelets. We will continue with Neupogen. His white count appears to be slowly trending upward but remains very neutropenic. I do not think he had a place to begin aggressive physical therapy yet. We will continue with her current antibiotics unit has been afebrile now for 48 hours. I am awaiting his neutrophil count to rise above 1000 before we start de -escalating his antibiotics. Exam - Constitutional Vitals: Period Temp Pulse Resp BP Sys/Carrero Pulse Ox Last 24 Hr 96.7 F-100.6 F 83-128 18-20 127-145/62-79 90-98 General appearance: normal weight, no acute distress - Head Head Exam: Present: normocephalic, atraumatic - Eye Eye Exam: Present: EOMI Pupils: Present: PERRL - ENT ENT exam: Present: normal exam, normal oropharynx - Neck Neck exam: Absent: lymphadenopathy, thyromegaly - Respiratory Respiratory exam: Present: CTAB. Absent: wheezes - Cardiovascular Cardiovascular exam: Present: RRR. Absent: JVD, tachycardia - GI/Abdominal GI/Abdominal exam: Present: soft. Absent: ascites, distended, mass - Neurological Exam Neurological exam: Present: alert, oriented X3, CN II-XII intact - Psychiatric Psychiatric exam: Present: normal affect, normal mood - Skin Skin exam: Present: warm, dry Results - Labs CBC & BMP: 02/05/17 04:00 02/05/17 04:00 Lab Results: I have reviewed the past 24 hour labs
[2017-02-05] MEDS: POTASSIUM CHLORIDE 8 MEQ CAPSULE PO SCH ×2 (08:22→20:13)
[2017-02-05] MEDS: FILGRASTIM-SNDZ 300 MCG/0.5 ML SYRINGE SUBCUT SCH (08:22)
[2017-02-05] MEDS: HYDROcodone/HOMATROPINE 5 ML UDCUP PO PRN ×3 (08:22→22:14)
[2017-02-05] MEDS: hydroCHLOROthiazide 25 MG TABLET PO SCH (08:22)
[2017-02-05] MEDS: INSULIN REGULAR 100 UNIT/ML SUBCUT SCH ×2 (08:23→17:16)
[2017-02-05] MEDS: VANCOMYCIN INJ 1,000 MG in SODIUM CHLORIDE 0.9% 250 ML IV SCH ×2 (09:49→22:08)
[2017-02-05] MEDS: FLUCONAZOLE INJ 200 MG in PREMIX 1 EACH IV SCH (10:55)
[2017-02-05] MEDS: POTASSIUM GLUCONATE 500 MG TABLET PO SCH (20:13)
[2017-02-05] MEDS: DILTIAZEM CD 120 MG CAPSULE PO SCH (20:13)
[2017-02-05] MEDS: amLODIPine 5 MG TABLET PO SCH (20:14)
[2017-02-05] MEDS: LORATADINE 10 MG TABLET PO SCH (20:14)
[2017-02-05] MEDS: predniSONE 10 MG TABLET PO SCH (20:14)
[2017-02-05] MEDS: sitaGLIPtin 100 MG TABLET PO SCH (20:15)
[2017-02-06] MEDS: PIPERACILLIN/TAZOBACTAM 3,375 MG in SODIUM CHLORIDE 0.9% 100 ML IV SCH ×3 (00:56→16:40)
[2017-02-06] MEDS: HYDROcodone/HOMATROPINE 5 ML UDCUP PO PRN ×2 (04:12→20:47)
[2017-02-06 05:30] LABS: Basophils % 1.3 % (0.0-0.8); Eosinophils % 1.3 % (0.00-10.9); Hematocrit 27.9 VOL% (42.0-52.0); Hemoglobin 9.7 GM/DL (14.0-18.0); Immature Granulocytes Absolute 0.12 #; Lymphocytes # 0.2 10*3/uL (1.4-4.0); Lymphocytes % 27.5 % (21.2-54.2); Mean Corpuscular HGB Conc 34.8 GM/DL (32-36); Mean Corpuscular Hemoglobin 30 PG (27-34); Mean Corpuscular Volume 86.6 FL (87-102); Mean Platelet Volume 10.5 FL (9.6-12.0); Neutrophils # 0.4 10*3/uL (1.4-7.4); Neutrophils % 49.9 % (38.7-73.9); Red Blood Count 3.22 MC/CUMM (3.8-5.5); Red Cell Distribution Width 15.4 % (9.3-17.3)
[2017-02-06 05:36] LABS: Platelet Count 32 T/CUMM (130-400); White Blood Count 0.8 T/CUMM (4-12)
[2017-02-06 06:04] LABS: Albumin 1.3 G/DL (3.4-5.0); Bilirubin,Total 1.3 MG/DL (0.2-1.0); Calcium 8.7 MG/DL (8.5-10.1); Magnesium 1.7 MG/DL (1.8-2.4); Osmolality,Calculated 263.8 MOS/KG (273-304); Potassium 3.5 MMOL/L (3.5-5.1); Total Protein 5.2 G/DL (6.4-8.3)
[2017-02-06 06:21] LABS: Hypochromasia 1+; Lymphocytes 30 % (20-55); Segmented Neutrophils 60 % (50-85); Total Cells Counted 100
[2017-02-06 06:22] LABS: Microcytosis Slight; Platelet Estimate Decreased
[2017-02-06] MEDS: ALBUTEROL/IPRATROPIUM 3 ML NEB RESP TX SCH ×4 (06:51→19:09)
[2017-02-06] MEDS: INSULIN REGULAR 100 UNIT/ML SUBCUT SCH ×2 (08:07→16:30)
--- NOTE | 2017-02-06 08:15 | Oncology Progress Note ---
Assessment and Plan (1) Small cell carcinoma of lung Status: Acute Assessment and plan: The patient will be covered with antibiotics though in in all likelihood his primary underlying problem is the progressive metastatic small cell lung cancer. We will discuss chemotherapy for later this week and continue to attempt the 5 remaining treatments of radiotherapy. Current Visit: No Oncology Subjective PN Interval history: The patient's hemoptysis appears resolved at the present time. He has a slight improvement in his white blood cell count today following cycle 1 Toprol T can days 1 through 5. He was given blood and platelets yesterday. He is requiring increased FiO2 and his room air saturations were 79% this morning during rounds. I placed his face mass back in position. He was awake alert and oriented. His abdomen is mildly tender he has not had any bowel movement in several days. He has brisk urine output with no pretibial edema. On lung exam breath sounds are present bilaterally on anterior auscultation. I did not appreciate any wheezes or crackles. Chest x-ray is ordered for today to compare back to 01 28 Overall it would be difficult to say that the patient has improved as he actually appears weaker when compared to my last examination last week. He and his family are very limited from a social standpoint which makes discharge planning very difficult Exam - Constitutional Vitals: Period Temp Pulse Resp BP Sys/Carrero Pulse Ox Last 24 Hr 97 F-101.5 F 79-136 14-24 104-158/56-87 86-99 Results - Labs CBC & BMP: 02/06/17 04:30 02/06/17 04:30
[2017-02-06] MEDS: SODIUM CHLOR 0.9% KCL 20 MEQ 20 MEQ/1,000 ML BAG IV SCH ×2 (09:09→14:29)
[2017-02-06] MEDS: POTASSIUM CHLORIDE 8 MEQ CAPSULE PO SCH ×2 (09:11→20:13)
[2017-02-06] MEDS: FILGRASTIM-SNDZ 300 MCG/0.5 ML SYRINGE SUBCUT SCH (09:12)
[2017-02-06] MEDS: hydroCHLOROthiazide 25 MG TABLET PO SCH (09:12)
[2017-02-06] MEDS: VANCOMYCIN INJ 1,000 MG in SODIUM CHLORIDE 0.9% 250 ML IV SCH ×2 (10:12→20:20)
--- NOTE | 2017-02-06 10:45 | XRay Report ---
Portable chest Date: 02/06/2017 Clinical history: Lung cancer Comparison: 01/28/2017 Technique: Portable AP sitting chest Findings: The heart is normal in size with stable right IJ venous access catheter. Minimally reduced pleural-parenchymal findings in the left mid to lower lung zone. However there is progressive somewhat rounded 62 mm parenchymal finding in the right upper lung zone. Degenerative changes are noted. Impression: Reduction in the atelectasis/infiltration in the left lower lobe in patient with known underlying carcinoma of the lung. Minimal decrease in the size of left pleural effusion. However there is now apparent infiltration in the right upper lobe which can be seen with pneumonia and therefore follow-up chest x-ray is recommended. PROCEDURE INTERPRETED AT [facility] DEPARTMENT OF RADIOLOGY Final Report Signed by: Dr. Micaela Sims
[2017-02-06] MEDS: FLUCONAZOLE INJ 200 MG in PREMIX 1 EACH IV SCH (14:26)
[2017-02-06] MEDS: LORATADINE 10 MG TABLET PO SCH (20:13)
[2017-02-06] MEDS: POTASSIUM GLUCONATE 500 MG TABLET PO SCH (20:13)
[2017-02-06] MEDS: DILTIAZEM CD 120 MG CAPSULE PO SCH (20:13)
[2017-02-06] MEDS: amLODIPine 5 MG TABLET PO SCH (20:14)
[2017-02-06] MEDS: predniSONE 10 MG TABLET PO SCH (20:14)
[2017-02-06] MEDS: sitaGLIPtin 100 MG TABLET PO SCH (20:14)
[2017-02-06] MEDS: TEMAZEPAM 7.5 MG CAPSULE PO PRN (20:47)
[2017-02-07] MEDS: PIPERACILLIN/TAZOBACTAM 3,375 MG in SODIUM CHLORIDE 0.9% 100 ML IV SCH ×3 (00:10→16:29)
[2017-02-07] MEDS: HYDROcodone/HOMATROPINE 5 ML UDCUP PO PRN ×3 (06:14→20:57)
[2017-02-07] MEDS: ALBUTEROL/IPRATROPIUM 3 ML NEB RESP TX SCH ×4 (07:15→20:05)
--- NOTE | 2017-02-07 07:45 | XRay Report ---
History is lung cancer follow-up Comparison 02/06/2017 The heart is enlarged with MediPort catheter present 6 cm rounded density over the right mid upper chest again seen. Mild patchy and stranding opacities in the mid to lower left lung field again demonstrated with blunting left costophrenic angle. Calcified left lung granuloma and hilar nodes again seen. Impression: No interval change described above PROCEDURE INTERPRETED AT [facility] DEPARTMENT OF RADIOLOGY Final Report Signed by: Dr. Jamila Lala
[2017-02-07 08:13] LABS: Basophils % 1.7 % (0.0-0.8); Eosinophils % 0.6 % (0.00-10.9); Hematocrit 30.6 VOL% (42.0-52.0); Hemoglobin 10.5 GM/DL (14.0-18.0); Immature Granulocytes % 12.9 %; Immature Granulocytes Absolute 0.23 #; Lymphocytes # 0.3 10*3/uL (1.4-4.0); Lymphocytes % 18.5 % (21.2-54.2); Mean Corpuscular HGB Conc 34.3 GM/DL (32-36); Mean Corpuscular Hemoglobin 30 PG (27-34); Mean Corpuscular Volume 87.7 FL (87-102); Mean Platelet Volume 11.9 FL (9.6-12.0); Monocytes # 0.1 10*3/uL (0.11-0.8); Monocytes % 4.5 % (1.7-12.7); Neutrophils # 1.1 10*3/uL (1.4-7.4); Neutrophils % 61.8 % (38.7-73.9); Red Blood Count 3.49 MC/CUMM (3.8-5.5); Red Cell Distribution Width 15.9 % (9.3-17.3); White Blood Count 1.8 T/CUMM (4-12)
[2017-02-07 08:25] LABS: Platelet Count 15 T/CUMM (130-400)
--- NOTE | 2017-02-07 08:31 | Oncology Progress Note ---
Assessment and Plan (1) Small cell carcinoma of lung Status: Acute Assessment and plan: The patient will be covered with antibiotics though in in all likelihood his primary underlying problem is the progressive metastatic small cell lung cancer. We will discuss chemotherapy for later this week and continue to attempt the 5 remaining treatments of radiotherapy. Current Visit: No Oncology Subjective PN Interval history: No appreciable changes over the last 24 hours. The patient remains somewhat lethargic and is oriented to person and situation. He does follow commands but does also show agitation at times. His family is present at the bedside. He remains on O2 by facemask. Lungs are negative for wheezes or crackles at this time. No peripheral edema. His abdomen is distended but no tenderness is appreciated. Bowel sounds are hypoactive but present. IV fluids are infusing at 75 mL's per hour. Chest x-ray from yesterday will be reviewed. White blood count is showing increase. He needs platelet transfusion today. We will reconsult physical therapy. Continue to push p.o. nutrition as tolerated. Exam - Constitutional Vitals: Period Temp Pulse Resp BP Sys/Carrero Pulse Ox Last 24 Hr 96.0 F-98.7 F 79-119 15-24 126-138/73-85 88-98 Results - Labs CBC & BMP: 02/07/17 07:46 02/06/17 04:30
[2017-02-07] MEDS ORDERED: ALTEPLASE 10 MG in SODIUM CHLORIDE 0.9% 250 ML IV ONE (08:33)
[2017-02-07 08:40] LABS: Band Neutrophils 41 % (0-10); Eosinophils 1 % (0-10); Lymphocytes 23 % (20-55); Segmented Neutrophils 28 % (50-85); Total Cells Counted 100
[2017-02-07] MEDS: SODIUM CHLOR 0.9% KCL 20 MEQ 20 MEQ/1,000 ML BAG IV SCH (09:53)
[2017-02-07] MEDS: INSULIN REGULAR 100 UNIT/ML SUBCUT SCH ×2 (09:53→16:28)
[2017-02-07] MEDS: FILGRASTIM-SNDZ 300 MCG/0.5 ML SYRINGE SUBCUT SCH (09:53)
[2017-02-07] MEDS: POTASSIUM CHLORIDE 8 MEQ CAPSULE PO SCH ×2 (09:53→20:57)
[2017-02-07] MEDS: hydroCHLOROthiazide 25 MG TABLET PO SCH (09:53)
[2017-02-07] MEDS: VANCOMYCIN INJ 1,000 MG in SODIUM CHLORIDE 0.9% 250 ML IV SCH ×2 (10:40→20:55)
[2017-02-07] MEDS: FLUCONAZOLE INJ 200 MG in PREMIX 1 EACH IV SCH (11:26)
[2017-02-07] MEDS ORDERED: ALTEPLASE 2 MG VIAL IV ONE (12:00)
[2017-02-07] MEDS: LORATADINE 10 MG TABLET PO SCH (20:57)
[2017-02-07] MEDS: sitaGLIPtin 100 MG TABLET PO SCH (20:57)
[2017-02-07] MEDS: amLODIPine 5 MG TABLET PO SCH (20:57)
[2017-02-07] MEDS: predniSONE 10 MG TABLET PO SCH (20:57)
[2017-02-07] MEDS: POTASSIUM GLUCONATE 500 MG TABLET PO SCH (20:57)
[2017-02-07] MEDS: DILTIAZEM CD 120 MG CAPSULE PO SCH (20:57)
[2017-02-08] MEDS: PIPERACILLIN/TAZOBACTAM 3,375 MG in SODIUM CHLORIDE 0.9% 100 ML IV SCH ×2 (00:40→08:45)
[2017-02-08] MEDS: SODIUM CHLOR 0.9% KCL 20 MEQ 20 MEQ/1,000 ML BAG IV SCH ×2 (00:40→08:38)
[2017-02-08] MEDS: ALBUTEROL/IPRATROPIUM 3 ML NEB RESP TX SCH ×4 (02:00→19:40)
[2017-02-08 05:18] LABS: Basophils % 0.7 % (0.0-0.8); Hematocrit 28.4 VOL% (42.0-52.0); Hemoglobin 9.8 GM/DL (14.0-18.0); Immature Granulocytes % 3.8 %; Immature Granulocytes Absolute 0.11 #; Lymphocytes # 0.3 10*3/uL (1.4-4.0); Lymphocytes % 11.5 % (21.2-54.2); Mean Corpuscular HGB Conc 34.5 GM/DL (32-36); Mean Corpuscular Hemoglobin 30 PG (27-34); Mean Corpuscular Volume 87.1 FL (87-102); Monocytes # 0.2 10*3/uL (0.11-0.8); Monocytes % 5.6 % (1.7-12.7); NRBC # 0.02 10*3/uL; Neutrophils # 2.3 10*3/uL (1.4-7.4); Neutrophils % 78.4 % (38.7-73.9); Red Blood Count 3.26 MC/CUMM (3.8-5.5); Red Cell Distribution Width 15.6 % (9.3-17.3); White Blood Count 2.9 T/CUMM (4-12)
[2017-02-08 05:32] LABS: Mean Platelet Volume 12.3 FL (9.6-12.0)
[2017-02-08 05:33] LABS: Platelet Count 12 T/CUMM (130-400)
[2017-02-08 05:50] LABS: Band Neutrophils 9 % (0-10); Eosinophils 1 % (0-10); Giant Platelets Few; Hypochromasia 1+; Lymphocytes 11 % (20-55); Microcytosis Slight; Ovalocytes Slight; Platelet Estimate Decreased; Segmented Neutrophils 73 % (50-85); Total Cells Counted 100
[2017-02-08 05:58] LABS: Albumin 1.5 G/DL (3.4-5.0); Bilirubin,Total 2.1 MG/DL (0.2-1.0); Calcium 8.8 MG/DL (8.5-10.1); Magnesium 1.5 MG/DL (1.8-2.4); Osmolality,Calculated 271.2 MOS/KG (273-304); Potassium 3.2 MMOL/L (3.5-5.1); Total Protein 5.6 G/DL (6.4-8.3)
[2017-02-08] MEDS: INSULIN REGULAR 100 UNIT/ML SUBCUT SCH ×2 (08:38→16:55)
[2017-02-08] MEDS: FILGRASTIM-SNDZ 300 MCG/0.5 ML SYRINGE SUBCUT SCH (08:44)
[2017-02-08] MEDS: hydroCHLOROthiazide 25 MG TABLET PO SCH (08:45)
[2017-02-08] MEDS: POTASSIUM CHLORIDE 8 MEQ CAPSULE PO SCH ×2 (08:45→21:12)
--- NOTE | 2017-02-08 08:55 | Oncology Progress Note ---
Assessment and Plan (1) Small cell carcinoma of lung Status: Acute Assessment and plan: The patient will be covered with antibiotics though in in all likelihood his primary underlying problem is the progressive metastatic small cell lung cancer. We will discuss chemotherapy for later this week and continue to attempt the 5 remaining treatments of radiotherapy. Current Visit: No Oncology Subjective PN Interval history: Patient is awake but somewhat disoriented. Multiple family members remain at bedside. He is on nasal cannula. He is lying supine in bed with little apparent activity. Abdomen is obese but nontender. No leg edema. Lungs are unremarkable on bilateral anterior auscultation. Labs are reviewed with continued hypokalemia, hypomagnesemia, and pancytopenia. We are continuing with platelet transfusions today as well as daily Neupogen support. I will adjust his antibiotics. There was concern about right upper lobe infiltrate though I do not think he is currently febrile nor have his O2 requirement significantly changed. I have talked with his about the possibility of home hospice and this is being investigated by case management today. Exam - Constitutional Vitals: Period Temp Pulse Resp BP Sys/Carrero Pulse Ox Last 24 Hr 96.0 F-99.1 F 101-130 16-34 134-169/75-90 21-96 Results - Labs CBC & BMP: 02/08/17 04:00 02/08/17 04:00
[2017-02-08] MEDS: POTASSIUM CHLORIDE RIDER 20 MEQ in PREMIX 1 EACH IV SCH ×3 (10:29→16:54)
[2017-02-08] MEDS: HYDROcodone/HOMATROPINE 5 ML UDCUP PO PRN (11:49)
[2017-02-08] MEDS ORDERED: POTASSIUM CHLORIDE RIDER 20 MEQ in PREMIX 1 EACH IV SCH (17:00)
[2017-02-08] MEDS: HYDROmorphone 2 MG/1 ML VIAL IV PRN ×2 (18:11→23:40)
[2017-02-08] MEDS: DILTIAZEM CD 120 MG CAPSULE PO SCH (21:11)
[2017-02-08] MEDS: sitaGLIPtin 100 MG TABLET PO SCH (21:11)
[2017-02-08] MEDS: LORATADINE 10 MG TABLET PO SCH (21:11)
[2017-02-08] MEDS: amLODIPine 5 MG TABLET PO SCH (21:12)
[2017-02-08] MEDS: predniSONE 10 MG TABLET PO SCH (21:12)
[2017-02-08] MEDS: POTASSIUM GLUCONATE 500 MG TABLET PO SCH (21:12)
[2017-02-09] MEDS: ALBUTEROL/IPRATROPIUM 3 ML NEB RESP TX SCH ×4 (00:39→21:37)
[2017-02-09] MEDS: SODIUM CHLOR 0.9% KCL 20 MEQ 20 MEQ/1,000 ML BAG IV SCH ×3 (00:47→16:40)
[2017-02-09 06:23] LABS: Albumin 1.5 G/DL (3.4-5.0); Bilirubin,Total 1.9 MG/DL (0.2-1.0); Calcium 8.6 MG/DL (8.5-10.1); Magnesium 1.7 MG/DL (1.8-2.4); Osmolality,Calculated 273.1 MOS/KG (273-304); Potassium 3.6 MMOL/L (3.5-5.1); Total Protein 5.4 G/DL (6.4-8.3)
[2017-02-09] MEDS: POTASSIUM CHLORIDE 8 MEQ CAPSULE PO SCH ×2 (08:39→20:20)
[2017-02-09] MEDS: hydroCHLOROthiazide 25 MG TABLET PO SCH (08:39)
[2017-02-09] MEDS: INSULIN REGULAR 100 UNIT/ML SUBCUT SCH ×2 (08:39→16:41)
[2017-02-09] MEDS: HYDROmorphone 2 MG/1 ML VIAL IV PRN ×3 (08:40→18:47)
[2017-02-09] MEDS: FILGRASTIM-SNDZ 300 MCG/0.5 ML SYRINGE SUBCUT SCH (08:40)
[2017-02-09 09:04] LABS: Basophils % 0.9 % (0.0-0.8); Eosinophils % 0.2 % (0.00-10.9); Hematocrit 27.2 VOL% (42.0-52.0); Immature Granulocytes % 13.8 %; Immature Granulocytes Absolute 0.62 #; Lymphocytes # 0.4 10*3/uL (1.4-4.0); Lymphocytes % 8.5 % (21.2-54.2); Mean Corpuscular HGB Conc 33.1 GM/DL (32-36); Mean Corpuscular Hemoglobin 30 PG (27-34); Mean Corpuscular Volume 90.7 FL (87-102); Mean Platelet Volume 12.7 FL (9.6-12.0); Monocytes # 0.3 10*3/uL (0.11-0.8); Monocytes % 6.3 % (1.7-12.7); NRBC # 0.02 10*3/uL; Neutrophils # 3.2 10*3/uL (1.4-7.4); Neutrophils % 70.3 % (38.7-73.9); Red Cell Distribution Width 16.1 % (9.3-17.3); White Blood Count 4.5 T/CUMM (4-12)
[2017-02-09] MEDS ORDERED: MAGNESIUM SULF RIDER 2 GM in PREMIX 1 EACH IV ONE (09:05)
[2017-02-09 09:11] LABS: Platelet Count 31 T/CUMM (130-400)
--- NOTE | 2017-02-09 09:22 | Oncology Progress Note ---
Assessment and Plan (1) Small cell carcinoma of lung Status: Acute Assessment and plan: The patient will be covered with antibiotics though in in all likelihood his primary underlying problem is the progressive metastatic small cell lung cancer. We will discuss chemotherapy for later this week and continue to attempt the 5 remaining treatments of radiotherapy. Current Visit: No Oncology Subjective PN Interval history: Patient was some agitation overnight. He has received 1 mg of Dilaudid IV earlier this morning. His abdomen is soft and nontender. He has no leg edema. He has developed some left upper extremity edema. This is likely a combination of hypoalbuminemia with possibly some lymphatic obstruction with brawny edema noted in the left supraclavicular region. I am not going to perform a Doppler as I could not anticoagulate him given his hemoptysis. Hospice was discussed yesterday with the family who is in agreement. At this time we would probably plan on Sunday for discharge. He is drowsy this morning. His was at bedside. His CBC has shown improvement of the white blood count and platelet count. I am going to supplement magnesium otherwise no new orders today. Exam - Constitutional Vitals: Period Temp Pulse Resp BP Sys/Carrero Pulse Ox Last 24 Hr 96.1 F-97.7 F 97-114 16-32 134-162/79-89 92-96 Results - Labs CBC & BMP: 02/09/17 04:33 02/09/17 04:33
[2017-02-09 09:48] LABS: Anisocytosis 1+; Band Neutrophils 49 % (0-10); Lymphocytes 10 % (20-55); Metamyelocytes 2 %; Segmented Neutrophils 29 % (50-85); Total Cells Counted 100
[2017-02-09 09:49] LABS: Acanthocytes 1+; Poikilocytosis 2+
[2017-02-09 09:50] LABS: Polychromasia Slight
[2017-02-09] MEDS: predniSONE 10 MG TABLET PO SCH (20:20)
[2017-02-09] MEDS: DILTIAZEM CD 120 MG CAPSULE PO SCH (20:20)
[2017-02-09] MEDS: POTASSIUM GLUCONATE 500 MG TABLET PO SCH (20:20)
[2017-02-09] MEDS: LORATADINE 10 MG TABLET PO SCH (20:20)
[2017-02-09] MEDS: amLODIPine 5 MG TABLET PO SCH (20:20)
[2017-02-09] MEDS: sitaGLIPtin 100 MG TABLET PO SCH (20:20)
[2017-02-10] MEDS: HYDROmorphone 2 MG/1 ML VIAL IV PRN ×5 (01:10→21:55)
[2017-02-10] MEDS: guaiFENesin 200 MG/10 ML UDCUP PO PRN (01:10)
[2017-02-10] MEDS: ALBUTEROL/IPRATROPIUM 3 ML NEB RESP TX SCH ×4 (01:21→20:12)
[2017-02-10 04:12] LABS: Basophils % 0.4 % (0.0-0.8); Hematocrit 26.9 VOL% (42.0-52.0); Hemoglobin 8.8 GM/DL (14.0-18.0); Immature Granulocytes % 9.2 %; Immature Granulocytes Absolute 0.65 #; Lymphocytes # 0.6 10*3/uL (1.4-4.0); Lymphocytes % 8.9 % (21.2-54.2); Mean Corpuscular HGB Conc 32.7 GM/DL (32-36); Mean Corpuscular Hemoglobin 29 PG (27-34); Mean Platelet Volume 11.7 FL (9.6-12.0); Monocytes # 0.5 10*3/uL (0.11-0.8); Monocytes % 7.1 % (1.7-12.7); NRBC # 0.04 10*3/uL; Neutrophils # 5.3 10*3/uL (1.4-7.4); Neutrophils % 74.4 % (38.7-73.9); Red Blood Count 2.99 MC/CUMM (3.8-5.5); Red Cell Distribution Width 16.2 % (9.3-17.3); White Blood Count 7.1 T/CUMM (4-12)
[2017-02-10 04:19] LABS: Platelet Count 26 T/CUMM (130-400)
[2017-02-10 04:39] LABS: Albumin 1.6 G/DL (3.4-5.0); Bilirubin,Total 1.9 MG/DL (0.2-1.0); Calcium 8.5 MG/DL (8.5-10.1); Magnesium 2.3 MG/DL (1.8-2.4); Potassium 3.9 MMOL/L (3.5-5.1); Total Protein 5.5 G/DL (6.4-8.3)
[2017-02-10 06:05] LABS: Band Neutrophils 29 % (0-10); Lymphocytes 3 % (20-55); Myelocytes 3 %; Segmented Neutrophils 65 % (50-85); Total Cells Counted 100
[2017-02-10 06:06] LABS: Anisocytosis 1+; Hypochromasia 1+; Platelet Estimate Decreased
[2017-02-10] MEDS: SODIUM CHLOR 0.9% KCL 20 MEQ 20 MEQ/1,000 ML BAG IV SCH ×4 (08:06→12:22)
--- NOTE | 2017-02-10 08:56 | Oncology Progress Note ---
Assessment and Plan (1) Small cell carcinoma of lung Status: Acute Assessment and plan: The patient will be covered with antibiotics though in in all likelihood his primary underlying problem is the progressive metastatic small cell lung cancer. We will discuss chemotherapy for later this week and continue to attempt the 5 remaining treatments of radiotherapy. Current Visit: No Oncology Subjective PN Interval history: Called earlier this morning for urinary retention with in and out catheterization performed. We will follow urine output based on brief changes during the day today with bladder scan as needed. His oral intake is little to none. His lung sounds are more congested and I am actually going to decrease his IV fluids somewhat. His labs are acceptable including normal magnesium and potassium. He does have evidence of worsening liver function based on rising total bilirubin. This is in the setting of progressive small cell lung cancer with known liver metastases. We have had difficulty earlier this morning in maintaining O2 saturations and he is on facemask O2. His teenage son was alone at the bedside. His has been notified for what appears to be a further decline in his condition. Pulmonary congestion noted on bilateral anterior auscultation without wheezes. Daisy appears grim and we will continue with current measures with DO NOT RESUSCITATE order in place Exam - Constitutional Vitals: Period Temp Pulse Resp BP Sys/Carrero Pulse Ox Last 24 Hr 96.8 F-98.5 F 96-113 16-24 132-162/78-93 90-99 Results - Labs CBC & BMP: 02/10/17 02:19 02/10/17 02:19
[2017-02-10] MEDS: INSULIN REGULAR 100 UNIT/ML SUBCUT SCH ×2 (09:12→16:32)
[2017-02-10] MEDS: FILGRASTIM-SNDZ 300 MCG/0.5 ML SYRINGE SUBCUT SCH (09:12)
[2017-02-10] MEDS: POTASSIUM CHLORIDE 8 MEQ CAPSULE PO SCH ×2 (09:12→20:02)
[2017-02-10] MEDS: hydroCHLOROthiazide 25 MG TABLET PO SCH (09:13)
[2017-02-10] MEDS ORDERED: FUROSEMIDE 40 MG/4 ML VIAL IV STA (09:57)
[2017-02-10] MEDS: DILTIAZEM CD 120 MG CAPSULE PO SCH (20:02)
[2017-02-10] MEDS: POTASSIUM GLUCONATE 500 MG TABLET PO SCH (20:02)
[2017-02-10] MEDS: sitaGLIPtin 100 MG TABLET PO SCH (20:02)
[2017-02-10] MEDS: predniSONE 10 MG TABLET PO SCH (20:02)
[2017-02-10] MEDS: amLODIPine 5 MG TABLET PO SCH (20:03)
[2017-02-10] MEDS: LORATADINE 10 MG TABLET PO SCH (20:03)
[2017-02-11] MEDS: ALBUTEROL/IPRATROPIUM 3 ML NEB RESP TX SCH ×3 (01:01→14:36)
[2017-02-11] MEDS: HYDROmorphone 2 MG/1 ML VIAL IV PRN ×4 (02:26→12:57)
[2017-02-11 06:49] LABS: Basophils % 0.1 % (0.0-0.8); Hematocrit 26.1 VOL% (42.0-52.0); Hemoglobin 8.6 GM/DL (14.0-18.0); Immature Granulocytes % 11.1 %; Immature Granulocytes Absolute 1.18 #; Lymphocytes # 0.7 10*3/uL (1.4-4.0); Lymphocytes % 6.6 % (21.2-54.2); Mean Corpuscular Hemoglobin 30 PG (27-34); Mean Corpuscular Volume 90.9 FL (87-102); Mean Platelet Volume 13.3 FL (9.6-12.0); Monocytes # 0.9 10*3/uL (0.11-0.8); Monocytes % 8.4 % (1.7-12.7); NRBC # 0.08 10*3/uL; Neutrophils # 7.9 10*3/uL (1.4-7.4); Neutrophils % 73.8 % (38.7-73.9); Red Blood Count 2.87 MC/CUMM (3.8-5.5); Red Cell Distribution Width 16.3 % (9.3-17.3); White Blood Count 10.7 T/CUMM (4-12)
[2017-02-11 06:50] LABS: Platelet Count 31 T/CUMM (130-400)
[2017-02-11 07:28] LABS: Albumin 1.6 G/DL (3.4-5.0); Calcium 8.4 MG/DL (8.5-10.1); Magnesium 2.3 MG/DL (1.8-2.4); Potassium 4.1 MMOL/L (3.5-5.1); Total Protein 5.7 G/DL (6.4-8.3)
[2017-02-11 07:32] LABS: Band Neutrophils 10 % (0-10); Giant Platelets Few; Hypochromasia 1+; Lymphocytes 5 % (20-55); Nucleated Red Blood Cells 3 (0-5); Platelet Estimate Decreased; Segmented Neutrophils 77 % (50-85); Total Cells Counted 100
[2017-02-11 07:33] LABS: Macrocytosis Slight; Polychromasia Slight
--- NOTE | 2017-02-11 08:40 | Oncology Progress Note ---
Assessment and Plan (1) Small cell carcinoma of lung Status: Acute Assessment and plan: The patient will be covered with antibiotics though in in all likelihood his primary underlying problem is the progressive metastatic small cell lung cancer. We will discuss chemotherapy for later this week and continue to attempt the 5 remaining treatments of radiotherapy. Current Visit: No Oncology Subjective PN Interval history: Patient is lethargic this morning. He opened his eyes. O2 facemask was placed back over the nasopharynx. Claudio was placed yesterday. His was at bedside though she was sleeping. His teenage son was present. He is clinically declining on a daily basis. He is now comfort measures only and plans at this point would be for discharge tomorrow to home hospice. Exam - Constitutional Vitals: Period Temp Pulse Resp BP Sys/Carrero Pulse Ox Last 24 Hr 97.3 F 87-104 16-30 156/89 94-98 Results - Labs CBC & BMP: 02/11/17 04:00 02/11/17 04:00
[2017-02-11] MEDS: hydroCHLOROthiazide 25 MG TABLET PO SCH (09:05)
[2017-02-11] MEDS: SODIUM CHLOR 0.9% KCL 20 MEQ 20 MEQ/1,000 ML BAG IV SCH (09:06)
[2017-02-11] MEDS: INSULIN REGULAR 100 UNIT/ML SUBCUT SCH ×2 (09:06→16:48)
[2017-02-11] MEDS: POTASSIUM CHLORIDE 8 MEQ CAPSULE PO SCH (09:06)
[2017-02-11 10:11] VITALS: BP 148/97
[2017-02-11] MEDS: FLUTICASONE 50 MCG NASAL SPRAY 16 GM BOTTLE BOTH NARES PRN (15:09)
--- NOTE | 2017-02-12 09:06 | Discharge Summary ---
Hospital Course - Hospital Course Hospital Course: Patient with widely metastatic small cell carcinoma who previously received outpatient chemotherapy. The patient was admitted several times with this most recent hospitalization being rather prolonged. The patient received antibiotics and pulmonary support with supplemental O2 while hospitalized. He also received chemotherapy Toprol T can days 1 through 5 cycle 1. He was supported through his michael with both blood and platelet transfusions. He did experience neutropenia with Neupogen administered until white blood count recovery. His general status declined over the last 7-10 days. He was having difficulty getting up and out of bed without experiencing hypoxemia. His case was discussed with his with plans for home hospice to actually be discharged today. However on Sunday morning proximately 36 hours before the patient's he again showed signs of clinical deterioration in his care was changed to comfort only at that time. The patient yesterday afternoon around 5 PM. Diagnosis - Discharge Diagnosis (1) Small cell carcinoma of lung Status: Acute Discharge Plan - Discharge Data Disposition: - Discharge Medications No Action Albuterol Sulfate [Ventolin HFA] 2 puff INH TID Hydrocodone/Acetaminophen [Hydrocodon-Acetaminophen 5-325] 1 each PO Q4-6H PRN PRN Reason: Pain dilTIAZem HCl [Diltiazem ER (24 hr)] 120 mg PO BEDTIME Linagliptin [Tradjenta] 5 mg PO BEDTIME Meclizine [Antivert] 25 mg PO QID PRN #20 tablet PRN Reason: Dizziness Loratadine 10 mg PO BEDTIME Potassium 99 mg PO BEDTIME Amlodipine Besylate 5 mg PO BEDTIME predniSONE TAB [PredniSONE] 10 mg PO BEDTIME hydroCHLOROthiazide [Hydrochlorothiazide] 25 mg PO BEDTIME Hydrocodone Bit/Homatrop Me-Br [Hydrocodone-Homatropine Syrup] 10 ml PO Q4H PRN PRN Reason: Cough Fluticasone Propionate [Fluticasone 50 mcg Nasal [place]] 1 spray BOTH NARES DAILY PRN PRN Reason: Congestion - Follow Up or Referral - Forms/Instructions Exam - Constitutional Vitals: Period Temp Pulse Resp BP Sys/Carrero Pulse Ox Last 24 Hr 101-106 20-28 97-98 DS: Provider Date of admission: 01/22/17 13:14 Primary care physician: YOSEPH Avalos Attending physician on admission: Jhonny Garnett MD Consults: 01/21/17 22:17 Consult to Dietitian [CONS] Routine Reason for Dietitian: Dietary Consult 01/24/17 15:05 Consult to Pharmacy [CONS] Routine Reason for Pharmacy Consult: Dose/Manage Vancomycin Comment: first dose now. 02/07/17 08:31 PT [Consult to Physical Therapy] [CONS] Routine Reason for Physical Therapy: Evaluate and Treat 02/07/17 08:32 OT [Consult to Occupational Therapy] [CONS] Routine Reason for Occupational Therapy: Evaluate and Treat 02/09/17 13:17 Consult to Case Mgmt/Social Srvs [CONS] Routine Reason for Case Mgmt/Social Srvs: Hospice Referral Discharging clinician: Jhonny Garnett MD
== END 2017-02-11 17:00 | disposition expired | DRG 136 ==
LOC: EDBD → EDUNIT# → N.ED 18:40 → N.EDINP 18:40 → N.4E 20:51
PROVIDERS: ADMIT Specialist; ATTEND Specialist